=== PATIENT | male | born 1955 | race Caucasian/White ===

== ENCOUNTER → 2017-12-24 | Outpatient (CLI) | payer OTHER ==
[~2017-12-24] MED LIST: AMLO5 PO; ASCO1ER; ASCO500 PO; ASPI325 PO; ASPI325EC; ASPI325EC PO; BEE POLLEN; CALC.25 PO; CARV25; CENTRUM ADULTS1 EACH PO; CEPH500 PO; CHOL10002; CLON.2; CLON.2 PO; Cardura8 MG PO; DOXA4; DOXA4 PO; DULO60; DULO60 PO; EDARBI PO; FINA5; FINA5 PO; FURO20; FURO40 PO; GABA300; GABA300 PO; GLIP10 PO; GLIP2.5ER; GLIP2.5ER PO; HYDACE5; HYDACE5 PO; HYDCHL50 PO; HYDPAM50 PO; LISI10; LISI20; LISI5 PO; METF500; METF500 PO; METO50ER; MULVIT PO; MULVITMINF; OMEP20ER; OMEP20ER PO; OXYACE5T PO; PARI1; PARI1 PO; PIOG30 PO; PIOG45; PIOGLITAZONE; Prilosec Otc20 MG; RANI150; RANI150 PO; RXERYTOPTH OP; Ranitidine HCl300 M1 PO; SITA25T2 PO; SULTRIDS PO; TELM40; TOCO400 PO; TRADJENTA5 MG PO; Vitamin C500 M3 PO; ZESTRIL40 MG PO; [UNRECOGNIZED DRUG - OTHER] PO
[2017-12-24 13:39] LABS: Protein, Urine Quantitative 46.1 mg/dL (0.0-11.9)
== END | disposition home or self-care (01) ==
LOC: OLS 11:32
PROVIDERS: Internal Medicine Nephrology
DX: N18.4 Chronic kidney disease, stage 4 (severe) (principal); E87.70 Fluid overload, unspecified; R60.0 Localized edema
CPT/HCPCS: 81050; 82043; 84156

== ENCOUNTER 2019-06-14 05:54 | Day surgery (SDC) | payer OTHER ==
[~2019-06-14] VITALS: Ht 172.7 cm; Wt 148.0 kg
[~2019-06-14 05:54] MED LIST changes: -CHOL10002; -CLON.2; +CLON.3TP TOP; +METO50ER PO; +OMEPRAZOLE20 MG PO; -Prilosec Otc20 MG; +VITAMIN D31000 UNIT PO
[2019-06-14] MEDS ORDERED: GABA100 PO (06:28)
[2019-06-14] MEDS ORDERED: ATORVASTATIN PO (06:29)
[2019-06-14] MEDS ORDERED: CLON.2 PO (06:36)
--- NOTE | 2019-06-14 09:30 | NUR ---
IV DC'D, CATH INTACT. RIGHT UPPER CHEST PERMACATH SITE CLEAN AND DRY, NO BLEEDING OR SWELLING NOTED AROUND SITE. PT VERBALIZED UNDERSTANDING OF DC INSTRUCTIONS AND FOLLOW UP INFO. WILL GO IMMEDIATELY TO DR MESA'S OFFICE AFTER BEING DC'D FROM [facility].
== END 2019-06-14 09:45 | disposition home or self-care (01) ==
LOC: MHTC 05:54
DX: I13.2 Hypertensive heart and chronic kidney disease with heart failure and with stage 5 chronic kidney disease, or end stage renal disease (principal); E11.22 Type 2 diabetes mellitus with diabetic chronic kidney disease; N18.6 End stage renal disease; I50.9 Heart failure, unspecified; E11.40 Type 2 diabetes mellitus with diabetic neuropathy, unspecified; I25.10 Atherosclerotic heart disease of native coronary artery without angina pectoris; G47.33 Obstructive sleep apnea (adult) (pediatric); E66.01 Morbid (severe) obesity due to excess calories; Z99.89 Dependence on other enabling machines and devices; Z88.8 Allergy status to other drugs, medicaments and biological substances; Z79.899 Other long term (current) drug therapy; Z68.42 Body mass index [BMI] 45.0-49.9, adult
CPT/HCPCS: 36558; 76937; 82947; 99152; 99153; C1750; C1769; J1644; J2250; J3010; J7030; J7040

== ENCOUNTER 2019-07-15 18:01 | Emergency (ER) | payer OTHER ==
[~2019-07-15] VITALS: Ht 177.8 cm; Wt 163.3 kg
[~2019-07-15 18:01] MED LIST changes: +ATORVASTATIN PO; +GABA100 PO
[2019-07-15] MEDS ORDERED: ZOLOFT20 MG/ML PO (18:14)
[2019-07-15 18:55] LABS: BASOPHILS ABSOLUTE AUTO 0.05 K/mm3 (0.00-0.23); BASOPHILS PERCENT AUTO 1 % (0-2); EOSINOPHILS PERCENT AUTO 4 % (0-6); Hematocrit 32.5 % (37.0-53.0); Hemoglobin 10.5 g/dL (13.5-17.5); IMMATURE GRAN ABSOLUTE AUTO 0.06 K/mm3 (0.00-0.10); IMMATURE GRAN PERCENT AUTO 1 % (0-1); LYMPHOCYTES ABSOLUTE AUTO 1.93 K/mm3 (0.84-5.20); LYMPHOCYTES PERCENT AUTO 25 % (21-46); MONOCYTES PERCENT AUTO 10 % (4-13); Mean Corpuscular HGB 29.9 pg (26.0-34.0); Mean Corpuscular HGB Conc 32.3 g/dL (31.5-36.5); Mean Corpuscular Volume 93 fL (80-100); Mean Platelet Volume 9.3 fL (9.1-12.4); NEUTROPHILS ABSOLUTE AUTO 4.67 K/mm3 (1.96-9.15); NEUTROPHILS PERCENT AUTO 60 % (41-73); Platelet Count 182 K/mm3 (150-400); RDW Coefficient Variation 13.9 % (11.7-14.2); RDW Standard Deviation 46.6 fL (35.1-46.3); Red Blood Cell Count 3.51 M/mm3 (4.30-5.90); White Blood Cell Count 7.81 K/mm3 (4.00-11.30)
[2019-07-15 19:12] LABS: Albumin, Blood 3.4 g/dL (3.4-5.0); Albumin/Globulin Ratio 0.8 (0.8-1.8); Bilirubin, Total 0.5 mg/dL (0.1-1.0); Bun/Creatinine Ratio 8.9 (12.0-20.0); Calcium, Blood 7.9 mg/dL (8.5-10.1); Creatinine, Blood 7.3 mg/dL (0.60-1.20); Globulin, Blood 4.4 g/dL (2.2-4.0); Magnesium, Blood 2.1 mg/dL (1.6-2.4); Potassium, Blood 4.2 mmol/L (3.5-5.5); Total Protein, Blood 7.8 g/dL (6.4-8.2)
== END 2019-07-15 20:06 | disposition home or self-care (01) ==
LOC: ER 18:01
PROVIDERS: Internal Medicine
DX: R53.1 Weakness (principal); E11.22 Type 2 diabetes mellitus with diabetic chronic kidney disease; N18.6 End stage renal disease; Z99.2 Dependence on renal dialysis; I25.2 Old myocardial infarction; Z88.1 Allergy status to other antibiotic agents; Z88.6 Allergy status to analgesic agent; Z79.899 Other long term (current) drug therapy
CPT/HCPCS: 36415; 80053; 83735; 85025; 99285

== ENCOUNTER 2019-07-25 19:02 | Emergency (ER) | payer OTHER ==
[~2019-07-25] VITALS: Ht 172.7 cm; Wt 147.9 kg
[~2019-07-25 19:02] MED LIST changes: +ZOLOFT20 MG/ML PO
[2019-07-25 20:01] LABS: BASOPHILS ABSOLUTE AUTO 0.05 K/mm3 (0.00-0.23); BASOPHILS PERCENT AUTO 1 % (0-2); EOSINOPHILS PERCENT AUTO 4 % (0-6); Hematocrit 32.9 % (37.0-53.0); Hemoglobin 10.3 g/dL (13.5-17.5); IMMATURE GRAN ABSOLUTE AUTO 0.05 K/mm3 (0.00-0.10); IMMATURE GRAN PERCENT AUTO 1 % (0-1); LYMPHOCYTES ABSOLUTE AUTO 1.62 K/mm3 (0.84-5.20); LYMPHOCYTES PERCENT AUTO 20 % (21-46); MONOCYTES ABSOLUTE AUTO 0.69 K/mm3 (0.16-1.47); MONOCYTES PERCENT AUTO 9 % (4-13); Mean Corpuscular HGB 29.3 pg (26.0-34.0); Mean Corpuscular HGB Conc 31.3 g/dL (31.5-36.5); Mean Corpuscular Volume 94 fL (80-100); Mean Platelet Volume 9.2 fL (9.1-12.4); NEUTROPHILS PERCENT AUTO 67 % (41-73); Platelet Count 186 K/mm3 (150-400); RDW Coefficient Variation 13.8 % (11.7-14.2); RDW Standard Deviation 46.8 fL (35.1-46.3); Red Blood Cell Count 3.51 M/mm3 (4.30-5.90); White Blood Cell Count 8.11 K/mm3 (4.00-11.30)
[2019-07-25 20:23] LABS: Alanine Aminotransfer (ALT/SGP 27 U/L (12-78); Albumin, Blood 3.4 g/dL (3.4-5.0); Albumin/Globulin Ratio 0.8 (0.8-1.8); Alk Phos 100 U/L (50-136); Anion Gap 8 mmol/L (6-16); Aspartate Aminotrans (AST/SGOT 18 U/L (12-37); Bilirubin, Total 0.5 mg/dL (0.1-1.0); Blood Urea Nitrogen 66 mg/dL (8-24); Bun/Creatinine Ratio 8.3 (12.0-20.0); CO2, Blood 30 mmol/L (21-32); Calcium, Blood 7.5 mg/dL (8.5-10.1); Chloride, Blood 96 mmol/L (98-108); Creatinine, Blood 7.95 mg/dL (0.60-1.20); Globulin, Blood 4.3 g/dL (2.2-4.0); Glomerular Filtration Rate 7 (60-); Glucose, Blood 189 mg/dL (70-99); Potassium, Blood 4.5 mmol/L (3.5-5.5); Sodium, Blood 134 mmol/L (136-145); Total Protein, Blood 7.7 g/dL (6.4-8.2); Troponin I <0.015 ng/mL (0.000-0.040)
== END 2019-07-25 22:28 | disposition home or self-care (01) ==
LOC: ER 19:02
PROVIDERS: Physician Assistant
DX: E11.22 Type 2 diabetes mellitus with diabetic chronic kidney disease (principal); I12.0 Hypertensive chronic kidney disease with stage 5 chronic kidney disease or end stage renal disease; N18.6 End stage renal disease; D63.1 Anemia in chronic kidney disease; Z99.2 Dependence on renal dialysis; R51 Headache; F32.9 Major depressive disorder, single episode, unspecified; K21.9 Gastro-esophageal reflux disease without esophagitis; Z88.8 Allergy status to other drugs, medicaments and biological substances; Z88.6 Allergy status to analgesic agent; Z79.899 Other long term (current) drug therapy
CPT/HCPCS: 36415; 80053; 82272; 84484; 85025; 93005; 93010; 99283-25

== ENCOUNTER 2019-08-03 16:54 | Emergency (ER) | payer OTHER ==
[~2019-08-03] VITALS: Ht 175.3 cm; Wt 148.3 kg
[2019-08-03] MEDS ORDERED: SERT25 PO (17:15)
[2019-08-03] MEDS ORDERED: MIDO5 PO (17:15)
[2019-08-03 18:03] LABS: BASOPHILS ABSOLUTE AUTO 0.03 K/mm3 (0.00-0.23); BASOPHILS PERCENT AUTO 0 % (0-2); EOSINOPHILS ABSOLUTE AUTO 0.09 K/mm3 (0.00-0.68); EOSINOPHILS PERCENT AUTO 1 % (0-6); Hemoglobin 10.2 g/dL (13.5-17.5); IMMATURE GRAN ABSOLUTE AUTO 0.03 K/mm3 (0.00-0.10); IMMATURE GRAN PERCENT AUTO 0 % (0-1); LYMPHOCYTES ABSOLUTE AUTO 1.11 K/mm3 (0.84-5.20); LYMPHOCYTES PERCENT AUTO 15 % (21-46); MONOCYTES PERCENT AUTO 11 % (4-13); Mean Corpuscular HGB 29.9 pg (26.0-34.0); Mean Corpuscular HGB Conc 31.9 g/dL (31.5-36.5); Mean Corpuscular Volume 94 fL (80-100); Mean Platelet Volume 9.1 fL (9.1-12.4); NEUTROPHILS ABSOLUTE AUTO 5.49 K/mm3 (1.96-9.15); NEUTROPHILS PERCENT AUTO 73 % (41-73); Platelet Count 189 K/mm3 (150-400); RDW Coefficient Variation 13.7 % (11.7-14.2); RDW Standard Deviation 46.4 fL (35.1-46.3); Red Blood Cell Count 3.41 M/mm3 (4.30-5.90); White Blood Cell Count 7.55 K/mm3 (4.00-11.30)
[2019-08-03 18:26] LABS: Albumin, Blood 3.6 g/dL (3.4-5.0); Albumin/Globulin Ratio 0.9 (0.8-1.8); Bilirubin, Total 0.6 mg/dL (0.1-1.0); Bun/Creatinine Ratio 7.6 (12.0-20.0); Calcium, Blood 8.5 mg/dL (8.5-10.1); Creatinine, Blood 5.81 mg/dL (0.60-1.20); Globulin, Blood 4.2 g/dL (2.2-4.0); Total Protein, Blood 7.8 g/dL (6.4-8.2)
== END 2019-08-03 19:29 | disposition home or self-care (01) ==
LOC: ER 16:54
PROVIDERS: Emergency Medicine
DX: I95.9 Hypotension, unspecified (principal); E11.22 Type 2 diabetes mellitus with diabetic chronic kidney disease; N18.6 End stage renal disease; D63.1 Anemia in chronic kidney disease; I25.2 Old myocardial infarction; E87.1 Hypo-osmolality and hyponatremia; E87.8 Other disorders of electrolyte and fluid balance, not elsewhere classified; Z99.2 Dependence on renal dialysis; Z88.8 Allergy status to other drugs, medicaments and biological substances; Z79.899 Other long term (current) drug therapy
CPT/HCPCS: 36415; 80053; 85025; 93005; 93010; 99285-25

== ENCOUNTER 2019-08-04 13:24 | Emergency (ER) | payer OTHER ==
[~2019-08-04] VITALS: Ht 175.3 cm; Wt 148.3 kg
[~2019-08-04 13:24] MED LIST changes: +MIDO5 PO; +SERT25 PO
[2019-08-04 14:56] LABS: BASOPHILS ABSOLUTE AUTO 0.03 K/mm3 (0.00-0.23); BASOPHILS PERCENT AUTO 0 % (0-2); EOSINOPHILS ABSOLUTE AUTO 0.25 K/mm3 (0.00-0.68); EOSINOPHILS PERCENT AUTO 3 % (0-6); Hematocrit 30.2 % (37.0-53.0); Hemoglobin 9.7 g/dL (13.5-17.5); IMMATURE GRAN ABSOLUTE AUTO 0.02 K/mm3 (0.00-0.10); IMMATURE GRAN PERCENT AUTO 0 % (0-1); LYMPHOCYTES ABSOLUTE AUTO 1.68 K/mm3 (0.84-5.20); LYMPHOCYTES PERCENT AUTO 22 % (21-46); MONOCYTES ABSOLUTE AUTO 0.68 K/mm3 (0.16-1.47); MONOCYTES PERCENT AUTO 9 % (4-13); Mean Corpuscular HGB 30.2 pg (26.0-34.0); Mean Corpuscular HGB Conc 32.1 g/dL (31.5-36.5); Mean Corpuscular Volume 94 fL (80-100); NEUTROPHILS ABSOLUTE AUTO 4.83 K/mm3 (1.96-9.15); NEUTROPHILS PERCENT AUTO 65 % (41-73); Platelet Count 193 K/mm3 (150-400); RDW Coefficient Variation 13.9 % (11.7-14.2); RDW Standard Deviation 47.3 fL (35.1-46.3); Red Blood Cell Count 3.21 M/mm3 (4.30-5.90); White Blood Cell Count 7.49 K/mm3 (4.00-11.30)
[2019-08-04 15:11] LABS: Albumin, Blood 3.4 g/dL (3.4-5.0); Albumin/Globulin Ratio 0.8 (0.8-1.8); Bilirubin, Total 0.5 mg/dL (0.1-1.0); Bun/Creatinine Ratio 8.2 (12.0-20.0); Calcium, Blood 8.2 mg/dL (8.5-10.1); Creatinine, Blood 5.38 mg/dL (0.60-1.20); Globulin, Blood 4.3 g/dL (2.2-4.0); Potassium, Blood 3.7 mmol/L (3.5-5.5); Total Protein, Blood 7.7 g/dL (6.4-8.2)
== END 2019-08-04 17:57 | disposition home or self-care (01) ==
LOC: ER 13:24
PROVIDERS: Physician Assistant
DX: R51 Headache (principal); R03.0 Elevated blood-pressure reading, without diagnosis of hypertension; I25.2 Old myocardial infarction; E11.9 Type 2 diabetes mellitus without complications; Z88.8 Allergy status to other drugs, medicaments and biological substances; Z88.1 Allergy status to other antibiotic agents; Z79.899 Other long term (current) drug therapy
CPT/HCPCS: 70450; 80053; 85025; 93005; 93010; 99285-25

== ENCOUNTER 2019-08-18 00:33 | Emergency (ER) | payer OTHER ==
[~2019-08-18] VITALS: Ht 175.3 cm; Wt 147.4 kg
[2019-08-18] MEDS ORDERED: Norco 5-325 Ta1 EACH PO (02:01)
[2019-08-18] MEDS ORDERED: LIDO700A20 TOP (02:01)
== END 2019-08-18 02:39 | disposition home or self-care (01) ==
LOC: ER 00:33
DX: M54.32 Sciatica, left side (principal); E11.9 Type 2 diabetes mellitus without complications; I25.2 Old myocardial infarction; N28.9 Disorder of kidney and ureter, unspecified; Z88.8 Allergy status to other drugs, medicaments and biological substances; Z79.899 Other long term (current) drug therapy
CPT/HCPCS: A9270; J1100

== ENCOUNTER 2019-08-28 14:34 | Emergency (ER) | payer OTHER ==
[~2019-08-28] VITALS: Ht 175.3 cm; Wt 145.2 kg
[~2019-08-28 14:34] MED LIST changes: +LIDO700A20 TOP; +Norco 5-325 Ta1 EACH PO
[2019-08-30] MEDS ORDERED: VITAMIN D31000 UNI2 PO (15:25)
[2019-08-30] MEDS ORDERED: CALC.25 PO (15:25)
[2019-08-30] MEDS ORDERED: Rena-Vite Tabl0.8 MG PO (15:26)
== END 2019-08-28 18:15 | disposition left against medical advice (07) ==
LOC: ER 14:34
DX: T82.898A Other specified complication of vascular prosthetic devices, implants and grafts, initial encounter (principal)
CPT/HCPCS: 99282; J2997

== ENCOUNTER 2019-09-06 12:08 | Emergency (ER) | payer OTHER ==
[~2019-09-06] VITALS: Ht 172.7 cm; Wt 137.0 kg
[~2019-09-06 12:08] MED LIST changes: +Rena-Vite Tabl0.8 MG PO; +VITAMIN D31000 UNI2 PO
[2019-09-06 12:47] LABS: BASOPHILS ABSOLUTE AUTO 0.04 K/mm3 (0.00-0.23); BASOPHILS PERCENT AUTO 1 % (0-2); EOSINOPHILS ABSOLUTE AUTO 0.24 K/mm3 (0.00-0.68); EOSINOPHILS PERCENT AUTO 3 % (0-6); Hematocrit 34.6 % (37.0-53.0); Hemoglobin 10.8 g/dL (13.5-17.5); IMMATURE GRAN ABSOLUTE AUTO 0.02 K/mm3 (0.00-0.10); IMMATURE GRAN PERCENT AUTO 0 % (0-1); LYMPHOCYTES ABSOLUTE AUTO 1.25 K/mm3 (0.84-5.20); LYMPHOCYTES PERCENT AUTO 17 % (21-46); MONOCYTES ABSOLUTE AUTO 0.59 K/mm3 (0.16-1.47); MONOCYTES PERCENT AUTO 8 % (4-13); Mean Corpuscular HGB 28.6 pg (26.0-34.0); Mean Corpuscular HGB Conc 31.2 g/dL (31.5-36.5); Mean Corpuscular Volume 92 fL (80-100); Mean Platelet Volume 9.1 fL (9.1-12.4); NEUTROPHILS ABSOLUTE AUTO 5.15 K/mm3 (1.96-9.15); NEUTROPHILS PERCENT AUTO 71 % (41-73); Platelet Count 199 K/mm3 (150-400); Red Blood Cell Count 3.78 M/mm3 (4.30-5.90); White Blood Cell Count 7.29 K/mm3 (4.00-11.30)
[2019-09-06 13:05] LABS: Alanine Aminotransfer (ALT/SGP 21 U/L (12-78); Albumin, Blood 3.3 g/dL (3.4-5.0); Albumin/Globulin Ratio 0.6 (0.8-1.8); Alk Phos 106 U/L (50-136); Anion Gap 9 mmol/L (6-16); Aspartate Aminotrans (AST/SGOT 19 U/L (12-37); Bilirubin, Total 0.4 mg/dL (0.1-1.0); Blood Urea Nitrogen 45 mg/dL (8-24); Bun/Creatinine Ratio 9.1 (12.0-20.0); CO2, Blood 27 mmol/L (21-32); Calcium, Blood 8.4 mg/dL (8.5-10.1); Chloride, Blood 99 mmol/L (98-108); Creatinine, Blood 4.96 mg/dL (0.60-1.20); Globulin, Blood 5.1 g/dL (2.2-4.0); Glomerular Filtration Rate 13 (60-); Glucose, Blood 329 mg/dL (70-99); Sodium, Blood 135 mmol/L (136-145); Total Protein, Blood 8.4 g/dL (6.4-8.2); Troponin I <0.015 ng/mL (0.000-0.040)
[2019-09-06] MEDS ORDERED: ATOR40TA PO (13:28)
== END 2019-09-06 16:17 | disposition home or self-care (01) ==
LOC: ER 12:08
PROVIDERS: Emergency Medicine
DX: R07.2 Precordial pain (principal); I25.2 Old myocardial infarction; E11.22 Type 2 diabetes mellitus with diabetic chronic kidney disease; N18.6 End stage renal disease; Z99.2 Dependence on renal dialysis; Z88.1 Allergy status to other antibiotic agents; Z79.899 Other long term (current) drug therapy
CPT/HCPCS: 36415; 36593; 37195; 71046; 80053; 83880; 84484; 85025; 93005; 93010; 99285-25; J2997

== ENCOUNTER 2019-09-07 20:26 | Emergency (ER) | payer OTHER ==
[~2019-09-07] VITALS: Ht 172.7 cm; Wt 137.0 kg
[~2019-09-07 20:26] MED LIST changes: +ATOR40TA PO
[2019-09-07 21:09] LABS: BASOPHILS ABSOLUTE AUTO 0.02 K/mm3 (0.00-0.23); BASOPHILS PERCENT AUTO 0 % (0-2); EOSINOPHILS PERCENT AUTO 2 % (0-6); Hematocrit 33.3 % (37.0-53.0); Hemoglobin 10.6 g/dL (13.5-17.5); IMMATURE GRAN ABSOLUTE AUTO 0.03 K/mm3 (0.00-0.10); IMMATURE GRAN PERCENT AUTO 1 % (0-1); LYMPHOCYTES ABSOLUTE AUTO 0.68 K/mm3 (0.84-5.20); LYMPHOCYTES PERCENT AUTO 10 % (21-46); MONOCYTES PERCENT AUTO 8 % (4-13); Mean Corpuscular HGB 28.9 pg (26.0-34.0); Mean Corpuscular HGB Conc 31.8 g/dL (31.5-36.5); Mean Corpuscular Volume 91 fL (80-100); NEUTROPHILS ABSOLUTE AUTO 5.28 K/mm3 (1.96-9.15); NEUTROPHILS PERCENT AUTO 80 % (41-73); Platelet Count 189 K/mm3 (150-400); RDW Standard Deviation 46.6 fL (35.1-46.3); Red Blood Cell Count 3.67 M/mm3 (4.30-5.90); White Blood Cell Count 6.61 K/mm3 (4.00-11.30)
[2019-09-07 21:30] LABS: Alanine Aminotransfer (ALT/SGP 21 U/L (12-78); Albumin, Blood 3.1 g/dL (3.4-5.0); Albumin/Globulin Ratio 0.7 (0.8-1.8); Alk Phos 104 U/L (50-136); Anion Gap 9 mmol/L (6-16); Aspartate Aminotrans (AST/SGOT 12 U/L (12-37); Bilirubin, Total 0.5 mg/dL (0.1-1.0); Blood Urea Nitrogen 58 mg/dL (8-24); Bun/Creatinine Ratio 9.5 (12.0-20.0); CO2, Blood 27 mmol/L (21-32); Calcium, Blood 8.4 mg/dL (8.5-10.1); Chloride, Blood 97 mmol/L (98-108); Creatinine, Blood 6.09 mg/dL (0.60-1.20); Globulin, Blood 4.7 g/dL (2.2-4.0); Glomerular Filtration Rate 10 (60-); Glucose, Blood 210 mg/dL (70-99); Potassium, Blood 4.4 mmol/L (3.5-5.5); Sodium, Blood 133 mmol/L (136-145); Total Protein, Blood 7.8 g/dL (6.4-8.2); Troponin I <0.015 ng/mL (0.000-0.040)
== END 2019-09-07 23:00 | disposition home or self-care (01) ==
LOC: ER 20:26
PROVIDERS: Emergency Medicine
DX: I95.9 Hypotension, unspecified (principal); E11.22 Type 2 diabetes mellitus with diabetic chronic kidney disease; N18.6 End stage renal disease; I25.2 Old myocardial infarction; Z88.1 Allergy status to other antibiotic agents; Z88.8 Allergy status to other drugs, medicaments and biological substances; Z79.899 Other long term (current) drug therapy; Z99.2 Dependence on renal dialysis
CPT/HCPCS: 36415; 80053; 83690; 84484; 85025; 93005; 93010; 96374; 99284-25; J2405

== ENCOUNTER 2019-09-14 12:56 | Day surgery (SDC) | payer OTHER ==
[~2019-09-14] VITALS: Ht 175.3 cm; Wt 146.0 kg
== END 2019-09-14 23:18 | disposition home or self-care (01) ==
LOC: MHTC 12:56
DX: I13.2 Hypertensive heart and chronic kidney disease with heart failure and with stage 5 chronic kidney disease, or end stage renal disease (principal); E11.22 Type 2 diabetes mellitus with diabetic chronic kidney disease; N18.6 End stage renal disease; I50.9 Heart failure, unspecified; E11.21 Type 2 diabetes mellitus with diabetic nephropathy; E11.40 Type 2 diabetes mellitus with diabetic neuropathy, unspecified; E11.319 Type 2 diabetes mellitus with unspecified diabetic retinopathy without macular edema; G43.909 Migraine, unspecified, not intractable, without status migrainosus; G47.33 Obstructive sleep apnea (adult) (pediatric); I25.10 Atherosclerotic heart disease of native coronary artery without angina pectoris; M19.90 Unspecified osteoarthritis, unspecified site; E11.36 Type 2 diabetes mellitus with diabetic cataract; H26.9 Unspecified cataract; G89.29 Other chronic pain; M54.9 Dorsalgia, unspecified; E66.9 Obesity, unspecified; Z68.42 Body mass index [BMI] 45.0-49.9, adult; Z95.5 Presence of coronary angioplasty implant and graft; Z99.89 Dependence on other enabling machines and devices; Z88.2 Allergy status to sulfonamides; Z88.8 Allergy status to other drugs, medicaments and biological substances; Z79.899 Other long term (current) drug therapy
CPT/HCPCS: 36415; 36581; 36596; 36597; 80048; 85025; 85610; C1725; C1769; J0360; J1644; J7040; Q9967

== ENCOUNTER 2019-10-13 07:51 | Emergency (ER) | payer OTHER ==
[~2019-10-13] VITALS: Ht 175.3 cm; Wt 98.4 kg
== END 2019-10-13 08:57 | disposition home or self-care (01) ==
LOC: ER 07:51
DX: T82.49XA Other complication of vascular dialysis catheter, initial encounter (principal); I25.2 Old myocardial infarction; E11.9 Type 2 diabetes mellitus without complications; Z88.1 Allergy status to other antibiotic agents; Z88.8 Allergy status to other drugs, medicaments and biological substances; Z79.899 Other long term (current) drug therapy; Z99.2 Dependence on renal dialysis
CPT/HCPCS: 36415; 96374; 99283-25; J2997

== ENCOUNTER 2019-11-02 12:00 | Emergency (ER) | payer OTHER ==
[~2019-11-02] VITALS: Ht 172.7 cm; Wt 143.8 kg
[2019-11-02 12:36] LABS: BASOPHILS ABSOLUTE AUTO 0.03 K/mm3 (0.00-0.23); BASOPHILS PERCENT AUTO 1 % (0-2); EOSINOPHILS ABSOLUTE AUTO 0.03 K/mm3 (0.00-0.68); EOSINOPHILS PERCENT AUTO 1 % (0-6); Hematocrit 39.2 % (37.0-53.0); IMMATURE GRAN ABSOLUTE AUTO 0.01 K/mm3 (0.00-0.10); IMMATURE GRAN PERCENT AUTO 0 % (0-1); LYMPHOCYTES ABSOLUTE AUTO 0.64 K/mm3 (0.84-5.20); LYMPHOCYTES PERCENT AUTO 18 % (21-46); MONOCYTES PERCENT AUTO 14 % (4-13); Mean Corpuscular HGB 27.4 pg (26.0-34.0); Mean Corpuscular HGB Conc 30.6 g/dL (31.5-36.5); Mean Corpuscular Volume 90 fL (80-100); Mean Platelet Volume 9.1 fL (9.1-12.4); NEUTROPHILS ABSOLUTE AUTO 2.42 K/mm3 (1.96-9.15); NEUTROPHILS PERCENT AUTO 67 % (41-73); Platelet Count 150 K/mm3 (150-400); RDW Coefficient Variation 15.2 % (11.7-14.2); RDW Standard Deviation 50.4 fL (35.1-46.3); Red Blood Cell Count 4.38 M/mm3 (4.30-5.90); White Blood Cell Count 3.63 K/mm3 (4.00-11.30)
[2019-11-02 12:59] LABS: Albumin, Blood 3.5 g/dL (3.4-5.0); Albumin/Globulin Ratio 0.8 (0.8-1.8); Bilirubin, Total 0.6 mg/dL (0.1-1.0); Calcium, Blood 8.5 mg/dL (8.5-10.1); Creatinine, Blood 5.89 mg/dL (0.60-1.20); Globulin, Blood 4.6 g/dL (2.2-4.0); Potassium, Blood 4.1 mmol/L (3.5-5.5); Total Protein, Blood 8.1 g/dL (6.4-8.2)
== END 2019-11-02 15:51 | disposition home or self-care (01) ==
LOC: ER 12:00
PROVIDERS: Emergency Medicine
DX: I12.9 Hypertensive chronic kidney disease with stage 1 through stage 4 chronic kidney disease, or unspecified chronic kidney disease (principal); E11.22 Type 2 diabetes mellitus with diabetic chronic kidney disease; N18.3 Chronic kidney disease, stage 3 (moderate); I25.2 Old myocardial infarction; Z99.2 Dependence on renal dialysis; Z88.8 Allergy status to other drugs, medicaments and biological substances; Z79.899 Other long term (current) drug therapy
CPT/HCPCS: 36415; 80053; 85025; 93005; 93010; 96360; 96361; 99284-25; J7030

== ENCOUNTER 2019-11-03 09:58 | Emergency (ER) | payer OTHER ==
[~2019-11-03] VITALS: Ht 172.7 cm; Wt 143.8 kg
[2019-11-03 11:10] LABS: BASOPHILS ABSOLUTE AUTO 0.03 K/mm3 (0.00-0.23); BASOPHILS PERCENT AUTO 1 % (0-2); EOSINOPHILS ABSOLUTE AUTO 0.19 K/mm3 (0.00-0.68); EOSINOPHILS PERCENT AUTO 3 % (0-6); Hematocrit 36.2 % (37.0-53.0); IMMATURE GRAN ABSOLUTE AUTO 0.01 K/mm3 (0.00-0.10); IMMATURE GRAN PERCENT AUTO 0 % (0-1); LYMPHOCYTES ABSOLUTE AUTO 1.03 K/mm3 (0.84-5.20); LYMPHOCYTES PERCENT AUTO 18 % (21-46); MONOCYTES ABSOLUTE AUTO 0.71 K/mm3 (0.16-1.47); MONOCYTES PERCENT AUTO 12 % (4-13); Mean Corpuscular HGB 27.9 pg (26.0-34.0); Mean Corpuscular HGB Conc 30.4 g/dL (31.5-36.5); Mean Corpuscular Volume 92 fL (80-100); Mean Platelet Volume 9.6 fL (9.1-12.4); NEUTROPHILS ABSOLUTE AUTO 3.92 K/mm3 (1.96-9.15); NEUTROPHILS PERCENT AUTO 67 % (41-73); Platelet Count 144 K/mm3 (150-400); RDW Coefficient Variation 15.5 % (11.7-14.2); RDW Standard Deviation 52.8 fL (35.1-46.3); Red Blood Cell Count 3.94 M/mm3 (4.30-5.90); White Blood Cell Count 5.89 K/mm3 (4.00-11.30)
[2019-11-03 11:29] LABS: Alanine Aminotransfer (ALT/SGP 37 U/L (12-78); Albumin, Blood 2.9 g/dL (3.4-5.0); Albumin/Globulin Ratio 0.6 (0.8-1.8); Alk Phos 90 U/L (50-136); Anion Gap 11 mmol/L (6-16); Aspartate Aminotrans (AST/SGOT 35 U/L (12-37); Bilirubin, Total 0.5 mg/dL (0.1-1.0); Blood Urea Nitrogen 54 mg/dL (8-24); Bun/Creatinine Ratio 7.4 (12.0-20.0); CO2, Blood 24 mmol/L (21-32); Calcium, Blood 7.8 mg/dL (8.5-10.1); Chloride, Blood 95 mmol/L (98-108); Creatinine, Blood 7.26 mg/dL (0.60-1.20); Globulin, Blood 4.5 g/dL (2.2-4.0); Glomerular Filtration Rate 8 (60-); Glucose, Blood 217 mg/dL (70-99); Potassium, Blood 4.9 mmol/L (3.5-5.5); Sodium, Blood 130 mmol/L (136-145); Total Protein, Blood 7.4 g/dL (6.4-8.2); Troponin I <0.015 ng/mL (0.000-0.040)
== END 2019-11-03 15:36 | disposition home or self-care (01) ==
LOC: ER 09:58
PROVIDERS: Emergency Medicine
DX: E86.0 Dehydration (principal); E11.22 Type 2 diabetes mellitus with diabetic chronic kidney disease; N18.3 Chronic kidney disease, stage 3 (moderate); I25.2 Old myocardial infarction; Z99.2 Dependence on renal dialysis; Z88.8 Allergy status to other drugs, medicaments and biological substances; Z79.899 Other long term (current) drug therapy
CPT/HCPCS: 36415; 80053; 84484; 85025; 93005; 93010; 96360; 99284-25; J7030

== ENCOUNTER → 2020-01-22 | Outpatient (CLI) | payer OTHER ==
[2020-01-22 17:35] LABS: Alanine Aminotransfer (ALT/SGP 39 U/L (12-78); Albumin, Blood 3.3 g/dL (3.4-5.0); Albumin/Globulin Ratio 0.7 (0.8-1.8); Alk Phos 107 U/L (40-126); Anion Gap 11 mmol/L (6-16); Bilirubin, Total 0.8 mg/dL (0.1-1.0); Blood Urea Nitrogen 19 mg/dL (8-24); Bun/Creatinine Ratio 6.5 (12.0-20.0); CO2, Blood 32 mmol/L (21-32); Calcium, Blood 8.1 mg/dL (8.5-10.1); Chloride, Blood 94 mmol/L (98-108); Creatinine, Blood 2.93 mg/dL (0.60-1.20); Globulin, Blood 4.5 g/dL (2.2-4.0); Glomerular Filtration Rate 22 (60-); Glucose, Blood 371 mg/dL (70-99); Magnesium, Blood 1.8 mg/dL (1.6-2.4); Potassium, Blood 3.6 mmol/L (3.5-5.5); Sodium, Blood 137 mmol/L (136-145); Thyroid Stimulating Hormone 0.938 uIU/mL (0.360-4.800); Total Protein, Blood 7.8 g/dL (6.4-8.2)
[2020-01-22 17:36] LABS: Aspartate Aminotrans (AST/SGOT 30 U/L (12-37); Troponin I <0.017 ng/mL (0.000-0.040)
== END | disposition home or self-care (01) ==
LOC: LAB EV 17:06 → LAB SHORT 17:06
PROVIDERS: Physician Assistant Medical
DX: R00.2 Palpitations (principal)
CPT/HCPCS: 80053; 83735; 84443; 84484

== ENCOUNTER 2021-02-14 10:58 | Emergency (ER) | payer OTHER ==
[~2021-02-14] VITALS: Ht 175.3 cm; Wt 113.4 kg
[~2021-02-14 10:58] MED LIST changes: +Calcium Acetat667 MG PO; +MUPIROCIN15 GM TOP
[2021-02-14 11:22] LABS: BASOPHILS ABSOLUTE AUTO 0.04 K/mm3 (0.00-0.23); BASOPHILS PERCENT AUTO 1 % (0-2); EOSINOPHILS ABSOLUTE AUTO 0.17 K/mm3 (0.00-0.68); EOSINOPHILS PERCENT AUTO 3 % (0-6); Hematocrit 43.2 % (37.0-53.0); Hemoglobin 14.1 g/dL (13.5-17.5); IMMATURE GRAN ABSOLUTE AUTO 0.02 K/mm3 (0.00-0.10); IMMATURE GRAN PERCENT AUTO 0 % (0-1); LYMPHOCYTES ABSOLUTE AUTO 1.58 K/mm3 (0.84-5.20); LYMPHOCYTES PERCENT AUTO 23 % (21-46); MONOCYTES ABSOLUTE AUTO 0.58 K/mm3 (0.16-1.47); MONOCYTES PERCENT AUTO 9 % (4-13); Mean Corpuscular HGB 28.7 pg (26.0-34.0); Mean Corpuscular HGB Conc 32.6 g/dL (31.5-36.5); Mean Corpuscular Volume 88 fL (80-100); Mean Platelet Volume 8.8 fL (9.1-12.4); NEUTROPHILS ABSOLUTE AUTO 4.37 K/mm3 (1.96-9.15); NEUTROPHILS PERCENT AUTO 65 % (41-73); Platelet Count 201 K/mm3 (150-400); RDW Coefficient Variation 14.6 % (11.7-14.2); RDW Standard Deviation 47.4 fL (35.1-46.3); Red Blood Cell Count 4.91 M/mm3 (4.30-5.90); White Blood Cell Count 6.76 K/mm3 (4.00-11.30)
[2021-02-14] MEDS ORDERED: MIDODRINE HCL10 M1 PO (11:26)
[2021-02-14] MEDS ORDERED: TEMA7.5 (11:27)
[2021-02-14] MEDS ORDERED: TRULICITY3 MG/0.5 M SQ (11:28)
[2021-02-14] MEDS ORDERED: PLAVIX75 MG PO (11:28)
[2021-02-14] MEDS ORDERED: BASAGLAR K100 UNIT/1 (11:28)
[2021-02-14] MEDS ORDERED: METOPROLOL SUCC25 MG PO (11:29)
[2021-02-14] MEDS ORDERED: GLIP5 PO (11:29)
[2021-02-14] MEDS ORDERED: TUMS500 MG (11:29)
[2021-02-14 11:39] LABS: Alanine Aminotransfer (ALT/SGP 35 U/L (12-78); Albumin, Blood 3.5 g/dL (3.4-5.0); Albumin/Globulin Ratio 0.8 (0.8-1.8); Alk Phos 122 U/L (50-136); Anion Gap 10 mmol/L (6-16); Aspartate Aminotrans (AST/SGOT 21 U/L (12-37); Bilirubin, Total 0.5 mg/dL (0.1-1.0); Blood Urea Nitrogen 49 mg/dL (8-24); Bun/Creatinine Ratio 7.3 (12.0-20.0); CO2, Blood 29 mmol/L (21-32); Chloride, Blood 96 mmol/L (98-108); Creatinine, Blood 6.68 mg/dL (0.60-1.20); Globulin, Blood 4.6 g/dL (2.2-4.0); Glomerular Filtration Rate 9 (60-); Glucose, Blood 289 mg/dL (70-99); Potassium, Blood 4.4 mmol/L (3.5-5.5); Sodium, Blood 135 mmol/L (136-145); Total Protein, Blood 8.1 g/dL (6.4-8.2); Troponin I <0.015 ng/mL (0.000-0.040)
== END 2021-02-14 16:21 | disposition home or self-care (01) ==
LOC: ER 10:58
PROVIDERS: Emergency Medicine
DX: R07.9 Chest pain, unspecified (principal); Z88.8 Allergy status to other drugs, medicaments and biological substances; Z88.1 Allergy status to other antibiotic agents; Z79.899 Other long term (current) drug therapy
CPT/HCPCS: 36415; 71046; 80053; 83690; 83880; 84484; 85025; 93005; 93010; 99285-25; A9270

== ENCOUNTER 2021-02-28 15:17 | Emergency (ER) | payer OTHER ==
[~2021-02-28] VITALS: Ht 175.3 cm; Wt 117.9 kg
[~2021-02-28 15:17] MED LIST changes: +BASAGLAR K100 UNIT/1 SC; +GLIP5 PO; +METOPROLOL SUCC25 MG PO; +MIDODRINE HCL10 M1 PO; +PLAVIX75 MG PO; +SERT100 PO; -SERT25 PO; +TEMA7.5; +TRULICITY3 MG/0.5 M SQ; +TUMS500 MG PO
[2021-02-28 15:49] LABS: BASOPHILS ABSOLUTE AUTO 0.05 K/mm3 (0.00-0.23); BASOPHILS PERCENT AUTO 1 % (0-2); EOSINOPHILS ABSOLUTE AUTO 0.16 K/mm3 (0.00-0.68); EOSINOPHILS PERCENT AUTO 2 % (0-6); Hematocrit 46.3 % (37.0-53.0); Hemoglobin 15.2 g/dL (13.5-17.5); IMMATURE GRAN ABSOLUTE AUTO 0.03 K/mm3 (0.00-0.10); IMMATURE GRAN PERCENT AUTO 1 % (0-1); LYMPHOCYTES ABSOLUTE AUTO 2.18 K/mm3 (0.84-5.20); LYMPHOCYTES PERCENT AUTO 33 % (21-46); MONOCYTES ABSOLUTE AUTO 0.56 K/mm3 (0.16-1.47); MONOCYTES PERCENT AUTO 9 % (4-13); Mean Corpuscular HGB 28.6 pg (26.0-34.0); Mean Corpuscular HGB Conc 32.8 g/dL (31.5-36.5); Mean Corpuscular Volume 87 fL (80-100); Mean Platelet Volume 8.6 fL (9.1-12.4); NEUTROPHILS ABSOLUTE AUTO 3.61 K/mm3 (1.96-9.15); NEUTROPHILS PERCENT AUTO 55 % (41-73); Platelet Count 260 K/mm3 (150-400); RDW Coefficient Variation 14.6 % (11.7-14.2); RDW Standard Deviation 46.3 fL (35.1-46.3); Red Blood Cell Count 5.32 M/mm3 (4.30-5.90); White Blood Cell Count 6.59 K/mm3 (4.00-11.30)
[2021-02-28 16:32] LABS: Albumin, Blood 3.8 g/dL (3.4-5.0); Albumin/Globulin Ratio 0.7 (0.8-1.8); Bilirubin, Total 0.7 mg/dL (0.1-1.0); Bun/Creatinine Ratio 5.9 (12.0-20.0); Calcium, Blood 9.2 mg/dL (8.5-10.1); Creatinine, Blood 4.22 mg/dL (0.60-1.20); Globulin, Blood 5.1 g/dL (2.2-4.0); Potassium, Blood 4.2 mmol/L (3.5-5.5); Total Protein, Blood 8.9 g/dL (6.4-8.2)
[2021-02-28] MEDS ORDERED: FINASTERIDE1 MG PO (18:21)
[2021-03-06] MEDS ORDERED: SIME80CH PO (09:30)
[2021-03-06] MEDS ORDERED: VITAMIN D310 MC4 PO (09:34)
[2021-03-06] MEDS ORDERED: Milk Thistle175 M1 PO (09:34)
== END 2021-02-28 19:10 | disposition home or self-care (01) ==
LOC: ER 15:17
PROVIDERS: Physician Assistant
DX: K80.70 Calculus of gallbladder and bile duct without cholecystitis without obstruction (principal); K21.9 Gastro-esophageal reflux disease without esophagitis; E11.40 Type 2 diabetes mellitus with diabetic neuropathy, unspecified; I10 Essential (primary) hypertension; E78.5 Hyperlipidemia, unspecified; Z88.1 Allergy status to other antibiotic agents; Z88.8 Allergy status to other drugs, medicaments and biological substances; Z79.4 Long term (current) use of insulin; Z79.899 Other long term (current) drug therapy
CPT/HCPCS: 36415; 76705; 80053; 83690; 85025; 93005; 93010; 99284-25

== ENCOUNTER 2021-03-05 08:31 | Emergency (ER) | payer OTHER ==
[~2021-03-05] VITALS: Ht 175.3 cm; Wt 117.9 kg
[~2021-03-05 08:31] MED LIST changes: +FINASTERIDE1 MG PO
[2021-03-05 09:25] LABS: BASOPHILS ABSOLUTE AUTO 0.05 K/mm3 (0.00-0.23); BASOPHILS PERCENT AUTO 1 % (0-2); EOSINOPHILS ABSOLUTE AUTO 0.17 K/mm3 (0.00-0.68); EOSINOPHILS PERCENT AUTO 3 % (0-6); Hematocrit 45.8 % (37.0-53.0); Hemoglobin 14.8 g/dL (13.5-17.5); IMMATURE GRAN ABSOLUTE AUTO 0.03 K/mm3 (0.00-0.10); IMMATURE GRAN PERCENT AUTO 1 % (0-1); LYMPHOCYTES ABSOLUTE AUTO 1.82 K/mm3 (0.84-5.20); LYMPHOCYTES PERCENT AUTO 30 % (21-46); MONOCYTES ABSOLUTE AUTO 0.58 K/mm3 (0.16-1.47); MONOCYTES PERCENT AUTO 9 % (4-13); Mean Corpuscular HGB 28.9 pg (26.0-34.0); Mean Corpuscular HGB Conc 32.3 g/dL (31.5-36.5); Mean Corpuscular Volume 90 fL (80-100); Mean Platelet Volume 8.6 fL (9.1-12.4); NEUTROPHILS PERCENT AUTO 57 % (41-73); Platelet Count 196 K/mm3 (150-400); RDW Coefficient Variation 14.9 % (11.7-14.2); RDW Standard Deviation 48.6 fL (35.1-46.3); Red Blood Cell Count 5.12 M/mm3 (4.30-5.90); White Blood Cell Count 6.15 K/mm3 (4.00-11.30)
[2021-03-05 09:38] LABS: Albumin, Blood 3.8 g/dL (3.4-5.0); Albumin/Globulin Ratio 0.8 (0.8-1.8); Bilirubin, Total 0.7 mg/dL (0.1-1.0); Bun/Creatinine Ratio 5.3 (12.0-20.0); Creatinine, Blood 6.92 mg/dL (0.60-1.20); Globulin, Blood 4.6 g/dL (2.2-4.0); Potassium, Blood 4.3 mmol/L (3.5-5.5); Total Protein, Blood 8.4 g/dL (6.4-8.2)
[2021-03-05] MEDS ORDERED: Norco 5-325 Ta1 EACH PO (10:21)
[2021-03-05] MEDS ORDERED: Zofran8 MG PO (10:21)
[2021-03-06] MEDS ORDERED: SIME80CH PO (09:30)
[2021-03-06] MEDS ORDERED: VITAMIN D310 MC4 PO (09:34)
[2021-03-06] MEDS ORDERED: Milk Thistle175 M1 PO (09:34)
== END 2021-03-05 10:35 | disposition home or self-care (01) ==
LOC: ER 08:31
PROVIDERS: Physician Assistant
DX: K80.20 Calculus of gallbladder without cholecystitis without obstruction (principal); E11.22 Type 2 diabetes mellitus with diabetic chronic kidney disease; E11.40 Type 2 diabetes mellitus with diabetic neuropathy, unspecified; I12.9 Hypertensive chronic kidney disease with stage 1 through stage 4 chronic kidney disease, or unspecified chronic kidney disease; N18.9 Chronic kidney disease, unspecified; Z99.2 Dependence on renal dialysis; Z88.1 Allergy status to other antibiotic agents; Z88.6 Allergy status to analgesic agent; Z79.02 Long term (current) use of antithrombotics/antiplatelets; Z79.4 Long term (current) use of insulin; Z79.899 Other long term (current) drug therapy
CPT/HCPCS: 36415; 76705; 80053; 83690; 85025; 93005; 93010; 96374; 96375; 99284-25; J1170; J2405

== ENCOUNTER → 2021-03-12 | Outpatient (CLI) | payer OTHER ==
[~2021-03-12] MED LIST changes: +CEFAZOLIN IV; +HYDR1TAB94 PO; +Milk Thistle175 M1 PO; +ONDA4ODT SL; +PANT40 PO; +Ropinirole HCl0.5 MG PO; +SIME80CH PO; +TEMA30 PO; +VISBIOME 112.51 EACH PO; +VITAMIN D310 MC4 PO; +Zofran8 MG PO
[2021-03-12 17:57] LABS: Appearance, Urine Clear (Clear); Bilirubin, Urine Neg (Neg); Blood, Urine 2+ (Neg); Color, Urine Yellow (P-Yellow); Glucose Qualitative, Urine 2+ (Neg); Ketones, Urine Neg (Neg); Leukocyte Esterase, Urine 1+ (Neg); Nitrite, Urine Neg (Neg); Protein, Urine 3+ (Neg); Urobilinogen, Urine NORM (Normal); pH, Urine 6.5 (5.0-8.0)
[2021-03-12 18:08] LABS: Red Blood Cells, Urine 0-2 /hpf (0-2)
[2021-03-12 18:09] LABS: Bacteria Few /hpf; Squamous Epithelial Cells Few /hpf (Few)
== END | disposition home or self-care (01) ==
LOC: LAB 13:01 → LAB SHORT 13:01
PROVIDERS: Internal Medicine Nephrology
DX: N39.0 Urinary tract infection, site not specified (principal)
CPT/HCPCS: 81001; 87086

== ENCOUNTER 2021-03-13 09:16 | Day surgery (SDC) | payer OTHER ==
[~2021-03-13] VITALS: Ht 175.3 cm; Wt 156.0 kg
[~2021-03-13 09:16] MED LIST changes: -CEFAZOLIN IV; -HYDR1TAB94 PO; -ONDA4ODT SL; -PANT40 PO; -Ropinirole HCl0.5 MG PO; -TEMA30 PO; -VISBIOME 112.51 EACH PO
--- NOTE | 2021-03-13 09:46 | NUR ---
History, Chart, Medications and Allergies reviewed before start of procedure. Patient States Post-Procedure ride home has been arranged. Patient confirms NPO status and agrees with scheduled surgery.
[2021-03-13] MEDS ORDERED: Calcium Acetat667 MG PO (09:56)
[2021-03-13] MEDS ORDERED: GABA100 PO (10:05)
--- NOTE | 2021-03-13 10:41 | NUR ---
Ambulatory in Day Surgery History, Chart, Medications and Allergies reviewed before start of procedure. Lungs clear T/O to Auscultation. Patient confirms NPO status and agrees with scheduled surgery. Pre-Op teaching done. Pt verbalizes understanding. Patient States Post-Procedure ride home has been arranged.
--- NOTE | 2021-03-13 18:14 | NUR ---
SUMMARY PT [place] RENAL DIET FOR DINNER WITHOUT NAUSEA. PT DOZING AFTER PAIN MEDS. OOB TO BATHROOM X1 POST OP WITH MODERATE ASSIT. YESICA WITH BILIOUS OUTPUT. ABD DRESSINGS WITH SHADOWING VISIBLE AT DRAIN INSERTION SITE
--- NOTE | 2021-03-14 04:18 | NUR ---
SHIFT SUMMARY: POST OP DAY 1 PT HAVING NAUSEA, MEDICATED WITH ZOFRAN. COMPLAINS OF ABDOMINAL PAIN, GIVEN SALTINE CRACKERS PER PT REQUEST. YESICA DRAIN IS DRAINING WELL AND EMPTIED SEVERAL TIMES. ABD DRESSINGS X4 ARE CDI.
--- NOTE | 2021-03-14 06:02 | NUR ---
POD 1 S/P LAP YADY. VSS, BP MUCH IMPROVED. DRESSINGS CDI. YESICA PUTTING OUT LARGE AMT OF BILE DRNG; APPX 270ML THIS SHIFT. PT HAD 1 EPISODE OF NAUSEA, REP RELIEF W/ZOFRAN AND CRACKERS. BT HYPO, PT REP NO FLATUS. PT MED FOR PAIN X1, DECLINED NEED FOR ADDITIONAL PAIN MEDS. PT UP IN ROOM W/FWW+SBA, [place] WELL.
[2021-03-14 08:14] LABS: Alanine Aminotransfer (ALT/SGP 68 U/L (12-78); Albumin, Blood 3.4 g/dL (3.4-5.0); Albumin/Globulin Ratio 0.7 (0.8-1.8); Alk Phos 87 U/L (50-136); Anion Gap 8 mmol/L (6-16); Aspartate Aminotrans (AST/SGOT 58 U/L (12-37); Bilirubin, Direct 0.2 mg/dL (0.0-0.3); Bilirubin, Indirect 0.8 mg/dL (0.1-0.7); Blood Urea Nitrogen 50 mg/dL (8-24); Bun/Creatinine Ratio 7.1 (12.0-20.0); CO2, Blood 32 mmol/L (21-32); Calcium, Blood 7.5 mg/dL (8.5-10.1); Chloride, Blood 93 mmol/L (98-108); Creatinine, Blood 7.09 mg/dL (0.60-1.20); Globulin, Blood 4.6 g/dL (2.2-4.0); Glomerular Filtration Rate 8 (60-); Glucose, Blood 221 mg/dL (70-99); Phosphorus, Blood 4.3 mg/dL (2.5-4.9); Potassium, Blood 4.3 mmol/L (3.5-5.5); Sodium, Blood 133 mmol/L (136-145)
--- NOTE | 2021-03-14 10:48 | NUR ---
1045 discharge instructions reviewed with patient. pt educated on emptying pablo drain and recording drainage amounts. pt ani po food and fluids without nausea. ptreports pain is adequately controlled with oral meds. pt has dialysis scheduled for 1430 today
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
== END 2021-03-14 10:47 | disposition home or self-care (01) ==
LOC: ORSCMMR 09:16 → ORD 11:00 → ORSCMMR 11:00 → SURS 14:50 → ORSCMMR 03-14 10:47
PROVIDERS: Surgery
PROC: 0FT44ZZ Resection of Gallbladder, Percutaneous Endoscopic Approach (ICD-10-PCS; principal; 2021-03-13 11:00)
DX: K80.10 Calculus of gallbladder with chronic cholecystitis without obstruction (principal); E11.9 Type 2 diabetes mellitus without complications; N18.6 End stage renal disease; G47.33 Obstructive sleep apnea (adult) (pediatric); I25.10 Atherosclerotic heart disease of native coronary artery without angina pectoris; I10 Essential (primary) hypertension; Z79.02 Long term (current) use of antithrombotics/antiplatelets; E66.01 Morbid (severe) obesity due to excess calories; Z68.43 Body mass index [BMI] 50.0-59.9, adult; Z79.899 Other long term (current) drug therapy
CPT/HCPCS: 36415; 80048; 80076; 82947; 84100; 84132; 85014; 87081; 88304; A9270; J0694; J2370; J2405; J2550; J2704; J3010; J3490; J7030

== ENCOUNTER 2021-04-05 04:42 | Inpatient (IN) | payer OTHER ==
[~2021-04-05] VITALS: Ht 172.7 cm; Wt 129.2 kg
[2021-04-05 05:33] LABS: Hemoglobin 12.1 g/dL (13.5-17.5); Mean Corpuscular HGB 28.3 pg (26.0-34.0); Mean Corpuscular HGB Conc 32.7 g/dL (31.5-36.5); Mean Corpuscular Volume 87 fL (80-100); Mean Platelet Volume 8.6 fL (9.1-12.4); Platelet Count 210 K/mm3 (150-400); RDW Coefficient Variation 14.2 % (11.7-14.2); RDW Standard Deviation 45.3 fL (35.1-46.3); Red Blood Cell Count 4.27 M/mm3 (4.30-5.90); White Blood Cell Count 10.77 K/mm3 (4.00-11.30)
[2021-04-05 05:50] LABS: BAND PERCENT MAN 21 % (0-8); BASOPHILS PERCENT MAN 0 % (0-2); EOSINOPHILS PERCENT MAN 0 % (0-6); LYMPHOCYTES ABSOLUTE MAN 0.75 K/mm3 (0.84-5.20); LYMPHOCYTES PERCENT MAN 7 % (21-46); MONOCYTES ABSOLUTE MAN 0.43 K/mm3 (0.16-1.47); MONOCYTES PERCENT MAN 4 % (4-13); NEUTROPHILS ABSOLUTE MAN 9.58 K/mm3 (1.96-9.15); SEG NEUTROPHILS PERCENT MAN 68 % (41-73); TOTAL CELLS COUNTED 100
[2021-04-05 05:56] LABS: Source, Urine Catheter
[2021-04-05 05:58] LABS: Bilirubin, Urine Neg (Neg); Blood, Urine 5+ (Neg); Glucose Qualitative, Urine 3+ (Neg); Ketones, Urine Neg (Neg); Leukocyte Esterase, Urine Neg (Neg); Nitrite, Urine Neg (Neg); Protein, Urine 3+ (Neg); Urobilinogen, Urine NORM (Normal); pH, Urine 6.5 (5.0-8.0)
[2021-04-05 06:00] LABS: Albumin, Blood 2.6 g/dL (3.4-5.0); Albumin/Globulin Ratio 0.4 (0.8-1.8); Bilirubin, Total 0.7 mg/dL (0.1-1.0); Bun/Creatinine Ratio 8.1 (12.0-20.0); Calcium, Blood 8.3 mg/dL (8.5-10.1); Creatinine, Blood 8.81 mg/dL (0.60-1.20); Globulin, Blood 5.8 g/dL (2.2-4.0); Potassium, Blood 4.1 mmol/L (3.5-5.5); Total Protein, Blood 8.4 g/dL (6.4-8.2)
[2021-04-05 06:05] LABS: Appearance, Urine Hazy (Clear); Color, Urine Yellow (P-Yellow)
[2021-04-05 06:06] LABS: Amorphous Mod (0-Heavy); Bacteria Few /hpf; Squamous Epithelial Cells Rare /hpf (Few); White Blood Cells, Urine Rare /hpf (0-5)
[2021-04-05] MEDS ORDERED: Ropinirole HCl0.5 MG PO (13:18)
--- NOTE | 2021-04-05 18:13 | NUR ---
UPDATE PHYSICIAN UPDATED ON PT'S STATUS. PHYSICIAN AWARE OF PT'S TACHYCARDIC STATE. PT BEGAN HALLUCINATING AND GRASPING FOR THINGS IN THE AIR. PHYSICIAN AWARE. PHYSICIAN NOTIFIED PT REPORTING PAIN IN HIPS. WILL CONTINUE TO MONITOR UNTIL REPORT GIVEN TO NIGHTSHIFT RN.
--- NOTE | 2021-04-05 18:16 | NUR ---
SHIFT SUMMARY PT ALERT AND ORIENTED AT TIMES. SLOW TO RESPOND, LETHARGIC AND CONFUSED AT TIMES. PT ABLE TO ASSIST IN Q 2 TURNS. YADY DRAIN DRAINING. OXYGEN SATURATION MAINTAINED ABOVE 92% ON 2 L OF OXYGEN VIA NC. HR TACHYCARDIC, PHYSICIAN AWARE. DEPENDS IN PLACE FOR INCONTINENCE. NO CP OR PRESSURE REPORTED. PT REPORTS HIP PAIN, PHYSICIAN AWARE. WILL MEDICATE PER EMAR. PT BEGINNING TO GRASP HANDS INTO AIR AND HALLUCINATE. PHYSICIAN AWARE. WILL CONTINUE TO MONITOR UNTIL REPORT GIVEN TO NIGHTSHIFT RN.
[2021-04-06 04:19] LABS: Hematocrit 36.6 % (37.0-53.0); Hemoglobin 11.8 g/dL (13.5-17.5); Mean Corpuscular HGB Conc 32.2 g/dL (31.5-36.5); Mean Corpuscular Volume 87 fL (80-100); Platelet Count 169 K/mm3 (150-400); RDW Coefficient Variation 14.4 % (11.7-14.2); RDW Standard Deviation 46.1 fL (35.1-46.3); Red Blood Cell Count 4.21 M/mm3 (4.30-5.90); White Blood Cell Count 10.21 K/mm3 (4.00-11.30)
[2021-04-06 04:39] LABS: Albumin, Blood 2.2 g/dL (3.4-5.0); Albumin/Globulin Ratio 0.4 (0.8-1.8); Bilirubin, Total 0.6 mg/dL (0.1-1.0); Bun/Creatinine Ratio 8.3 (12.0-20.0); Calcium, Blood 8.6 mg/dL (8.5-10.1); Creatinine, Blood 7.6 mg/dL (0.60-1.20); Globulin, Blood 5.9 g/dL (2.2-4.0); Potassium, Blood 4.5 mmol/L (3.5-5.5); Total Protein, Blood 8.1 g/dL (6.4-8.2)
[2021-04-06 05:18] LABS: BAND PERCENT MAN 12 % (0-8); BASOPHILS PERCENT MAN 0 % (0-2); EOSINOPHILS PERCENT MAN 0 % (0-6); LYMPHOCYTES ABSOLUTE MAN 0.71 K/mm3 (0.84-5.20); LYMPHOCYTES PERCENT MAN 7 % (21-46); MONOCYTES ABSOLUTE MAN 0.51 K/mm3 (0.16-1.47); MONOCYTES PERCENT MAN 5 % (4-13); NEUTROPHILS ABSOLUTE MAN 8.98 K/mm3 (1.96-9.15); SEG NEUTROPHILS PERCENT MAN 76 % (41-73); TOTAL CELLS COUNTED 100
--- NOTE | 2021-04-06 06:43 | NUR ---
A/O X3-4. PREVIOUS CONFUSION APPEARING TO CLEAR. SLEEPING INTERMITTENTLY. TREMULOUS AT TIMES. EXTREMELY DIAPHORETIC. AFEBRILE. DENIES C/P SOB. SPO2 96% ROOM AIR. VSS. YESICA DRAIN PATENT TO BULB SUCTION. STRICT OUTPUT EQUALED 130ML GREEN/MILKY DRAINAGE. GOOD APPETITE, EATING MULTIPLE SNACKS. ELEVATED GLUCOSE. INSULIN COVERAGE CHANGED FROM Q6HRS TO AC/HS. BLOOD CX RESULTS CALLED TO . NEW ORDERS FOR VANCO ABX. NO OTHER NEEDS/CONCERNS AT THIS TIME
--- NOTE | 2021-04-06 07:49 | NUR ---
X-RAY CANCEL SPOKE WITH SHOTGUN SHELL LOADING MACHINE OPERATOR REGARDING X RAY FOR ABD/PELVIS. REQUESTING TO BE CANCELLED D/T PREVIOUS SCAN ON 04/05. PHYSICIAN ORDERS FOR XRAY THIS AM TO BE CANCELLED.
--- NOTE | 2021-04-06 11:06 | NUR ---
UPDATE SPOKE WITH PHYSICIAN REGARDING ORDERED MRI. ATTEMPTING TO FILL MRI SCREENING SHEET WITH PT. PT CONFUSED AT TIMES, PT'S RELATIVE CALLED TO ATTEMPT TO OBTAIN INFORMATION. PT'S RELATIVE STATED PT HAS BEEN TO [facility]. MEDICAL RECORDS REQUESTED FROM [facility] TO ATTEMPT TO FINISH SCREENING PT FOR MRI.
--- NOTE | 2021-04-06 15:54 | NUR ---
UPDATE PHYSICIAN NOTIFIED THAT PT'S MENTATION CLEARED. PT NOW ALERT AND ORIENTED X 4. NO CONFUSION AT THIS TIME. MRI FORM FILLED OUT BY PT. PHYSICIAN AGREES TO ALLOW PT TO HAVE MRI BASED ON MENTATION IMPROVEMENT. PT TO MRI. PT UNABLE TO RECIEVE MRI D/T PT'S SIZE. WILL INFORM PHYSICIAN.
--- NOTE | 2021-04-06 18:02 | NUR ---
SHIFT SUMMARY PT ALERT AND ORIENTED X 4. EXPERIENCED CONFUSION ONE TIME THIS AM. PT AWARE OF DATE, LOCATION, PRESIDENT, REASON FOR ADMITTANCE TO HOSPITAL. PT ABLE TO FILL OUT MRI SCREEN FORM, SEE NOTES. MRI NOT DONE D/T PT SIZE. PHYSICIAN NOTIFIED. PT REPORTS PAIN IN BACK/HIPS MEDICATED PER EMAR. PROVIDED WITH HEAT PACK. PT REPORTS RELIEF. HR STABLE. NOT TACHYCARDIC. BP STABLE. OXYGEN SATURATION MAINTAINED ABOVE 92% ON RA. PT VOMITTED ONE TIME THIS EVENING. ZOFRAN GIVEN, PT REPORTS RELIEF. PT 2 PERS ASSIST WITH WALKER TO CHAIR. PT ABLE TO TURN SELF IN BED. YESICA DRAIN WNL. DRAINING GREEN BILE. DEPENDS ON FOR INCONTINENCE. BLADDER SCAN DONE, SEE URINARY ASSESSMENT. NO CP OR PRESSURE. WILL CONT TO MONITOR UNTIL REPORT GIVEN TO NIGHTSHIFT RN.
[2021-04-06 22:18] LABS: Vancomycin, Random 20.1 ug/mL
[2021-04-07 04:11] LABS: Hematocrit 33.6 % (37.0-53.0); Mean Corpuscular HGB 28.1 pg (26.0-34.0); Mean Corpuscular HGB Conc 32.7 g/dL (31.5-36.5); Mean Corpuscular Volume 86 fL (80-100); Mean Platelet Volume 8.9 fL (9.1-12.4); Platelet Count 169 K/mm3 (150-400); RDW Coefficient Variation 14.4 % (11.7-14.2); RDW Standard Deviation 45.1 fL (35.1-46.3); Red Blood Cell Count 3.92 M/mm3 (4.30-5.90)
[2021-04-07 04:44] LABS: Magnesium, Blood 2.3 mg/dL (1.6-2.4)
[2021-04-07 04:45] LABS: BAND PERCENT MAN 27 % (0-8); BASOPHILS PERCENT MAN 0 % (0-2); EOSINOPHILS PERCENT MAN 0 % (0-6); LYMPHOCYTES ABSOLUTE MAN 0.78 K/mm3 (0.84-5.20); LYMPHOCYTES PERCENT MAN 8 % (21-46); MONOCYTES ABSOLUTE MAN 0.88 K/mm3 (0.16-1.47); MONOCYTES PERCENT MAN 9 % (4-13); NEUTROPHILS ABSOLUTE MAN 8.13 K/mm3 (1.96-9.15); SEG NEUTROPHILS PERCENT MAN 56 % (41-73); TOTAL CELLS COUNTED 100
[2021-04-07 04:53] LABS: Albumin, Blood 2.1 g/dL (3.4-5.0); Albumin/Globulin Ratio 0.4 (0.8-1.8); Bilirubin, Total 0.6 mg/dL (0.1-1.0); Bun/Creatinine Ratio 9.3 (12.0-20.0); Calcium, Blood 8.3 mg/dL (8.5-10.1); Creatinine, Blood 8.88 mg/dL (0.60-1.20); Globulin, Blood 5.5 g/dL (2.2-4.0); Phosphorus, Blood 5.8 mg/dL (2.5-4.9); Potassium, Blood 4.3 mmol/L (3.5-5.5); Total Protein, Blood 7.6 g/dL (6.4-8.2)
--- NOTE | 2021-04-07 06:20 | NUR ---
A/O X4. PLEASANT/COOPERATIVE. REQUESTED TO GET OUT OF BED IN TO CHAIR BECAUSE OF CHRONIC BACK PAIN. PAIN CONTROLLED WITH PO TYLENOL AND REPOSITIOINING. IV ABX CONTINUED. YESICA DRAIN DISCHARGE DECREASED TO ABOUT 20ML GREEN FLUID Q4 HRS. X1 IV LOPRESSOR GIVEN FOR ELEVATED SBP GREATER THAN 160. SBP HAS SINCE REMAINED LESS THAN 160. NO OTHER COMPLAINTS/NEEDS AT THIS TIME.
[2021-04-07 13:10] LABS: Vancomycin, Random 11.7 ug/mL
--- NOTE | 2021-04-07 16:10 | NUR ---
SHIFT SUMMARY PT A&Ox4; CALM AND COOPERATIVE WITH CARE. ASSISTS WITH REPOSITIONING. PT REPORTS BACK PAIN, MEDICATED x1 WITH TYLENOL AND 1x WITH NORCO AND PROVIDED A HEATING PAD, PT STATES MINIMAL PAIN RELEIF. PT SOB WITH EXERTION, SPO2 >90% ON RA. PT DENIES CHEST PAIN, NASUEA AND DIZZINESS T/O SHIFT. PT RECEIVING IV ANTIBIOTICS. VSS. NO OTHER ACUTE CHANGES NOTED. WILL CONTINUE TO MONITOR UNTIL REPORT GIVEN TO ONCOMING RN.
[2021-04-08 04:08] LABS: Hematocrit 33.8 % (37.0-53.0); Hemoglobin 11.3 g/dL (13.5-17.5)
[2021-04-08 04:28] LABS: Albumin, Blood 2.1 g/dL (3.4-5.0); Anion Gap 10 mmol/L (6-16); Blood Urea Nitrogen 63 mg/dL (8-24); Bun/Creatinine Ratio 8.6 (12.0-20.0); CO2, Blood 31 mmol/L (21-32); Calcium, Blood 8.4 mg/dL (8.5-10.1); Chloride, Blood 91 mmol/L (98-108); Creatinine, Blood 7.29 mg/dL (0.60-1.20); Glomerular Filtration Rate 8 (60-); Glucose, Blood 280 mg/dL (70-99); Magnesium, Blood 2.1 mg/dL (1.6-2.4); Phosphorus, Blood 4.8 mg/dL (2.5-4.9); Potassium, Blood 4.2 mmol/L (3.5-5.5); Sodium, Blood 132 mmol/L (136-145)
--- NOTE | 2021-04-08 15:00 | NUR ---
TRANSFER NOTE PT A&Ox3, FORGETFUL AT TIMES, PT CALM AND COOPERATIVE WITH CARE. PT RESTING UP IN CHAIR FOR MAJORITY OF SHIFT. UP WITH 1 PERSON ASSIST. PT REPORTS PAIN TO ABD/BACK, DENIES NEED FOR MEDICATION. PT SOB WITH EXERTION, SPO2 >90% ON RA. PT DENIES CHEST PAIN, NAUSEA AND DIZZINESS T/O SHIFT. YESICA DRAIN TO RIGHT ABD DRESSING WITH GAUZE SPONGE AND TEGADERM PER DR BRADLEY AT BEDSIDE. VSS. NO OTHER ACUTE CHANGES NOTED. REPORT GIVEN TO RN ASSUMING CARE OF PT. [facility].
[2021-04-08 15:24] LABS: Vancomycin, Random 23.5 ug/mL
[2021-04-09 01:30] LABS: SARS-Cov-2 (COVID-19) PCR, MMC NEGATIVE (NEGATIVE)
[2021-04-09] MEDS ORDERED: TEMA30 PO (04:43)
[2021-04-09] MEDS ORDERED: PANT40 PO (04:49)
--- NOTE | 2021-04-09 04:54 | NUR ---
PT was transferred from PCU yesterday. He fell at home & was down on the floor for several days. Was septic. Had lap chose 03/14/21 & has YESICA drain patent rt l abd. 45 ml thick green fluid drained. NV has very obese abd & he has difficulty with bed mobility & has very unsteady gait whan up with 2 max to bathroom. High fall risk bed alarm on & awqare PT is unsteady recent fall & confused. PT pulled out his secured powerglide this AM cannula intact. ESRD on dialysis via lt arm AV fistula. PT has cough productive of thick yellow sputum. NPO for ARETHA after echo found abnormality. EF 70%. Chronic & acute back pain relieved by oral pain meds.
[2021-04-09 05:45] LABS: Hematocrit 30.9 % (37.0-53.0); Hemoglobin 10.2 g/dL (13.5-17.5)
[2021-04-09 06:27] LABS: Magnesium, Blood 2.5 mg/dL (1.6-2.4)
[2021-04-09 06:40] LABS: Anion Gap 11 mmol/L (6-16); Blood Urea Nitrogen 81 mg/dL (8-24); Bun/Creatinine Ratio 9.4 (12.0-20.0); CO2, Blood 29 mmol/L (21-32); Calcium, Blood 8.1 mg/dL (8.5-10.1); Chloride, Blood 89 mmol/L (98-108); Creatinine, Blood 8.66 mg/dL (0.60-1.20); Glomerular Filtration Rate 7 (60-); Glucose, Blood 251 mg/dL (70-99); Phosphorus, Blood 5.2 mg/dL (2.5-4.9); Sodium, Blood 129 mmol/L (136-145)
--- NOTE | 2021-04-09 08:31 | NUR ---
PT ARRIVED IN PROCEDURE ROOM ON [facility]. DR CERVANTES IN ROOM TO SEE PT. PT DENIES CHEST PAIN. PT A&O X 3.
--- NOTE | 2021-04-09 09:17 | NUR ---
PT TOLERATED ARETHA WELL.
--- NOTE | 2021-04-09 12:46 | NUR ---
0820 TO ARETHA, 1020 LESLY Malave/Michelle RN BROUGHT PT BACK. STATES START SOFT DIET PER . NEED TO GET DIALYSIS NOW. GAVE AM MEDS. 1040 TO DIALYSIS.
--- NOTE | 2021-04-09 18:24 | NUR ---
PT PLEASNT TODAY. DID HAVE ARETHA THIS AM. ALSO IMMED FOLLOWED TO DIALYSIS. NO C/O POAIN TO ME THIS DAY. DID 2 ASST TO CHAIR AND TO BSC. DID CLARIFY TO LOW S/S AC/HS . NO FURTHER CONCERNS NOTED. YESICA DRAIN SITE CDI THIS AFT. BED IN LOW POSITION, CALL LITE IN [facility], CALLS APPROP
[2021-04-10 05:14] LABS: BASOPHILS ABSOLUTE AUTO 0.04 K/mm3 (0.00-0.23); BASOPHILS PERCENT AUTO 1 % (0-2); EOSINOPHILS ABSOLUTE AUTO 0.05 K/mm3 (0.00-0.68); EOSINOPHILS PERCENT AUTO 1 % (0-6); Hematocrit 32.3 % (37.0-53.0); Hemoglobin 10.8 g/dL (13.5-17.5); IMMATURE GRAN ABSOLUTE AUTO 0.27 K/mm3 (0.00-0.10); IMMATURE GRAN PERCENT AUTO 4 % (0-1); LYMPHOCYTES ABSOLUTE AUTO 1.54 K/mm3 (0.84-5.20); LYMPHOCYTES PERCENT AUTO 21 % (21-46); MONOCYTES ABSOLUTE AUTO 0.78 K/mm3 (0.16-1.47); MONOCYTES PERCENT AUTO 11 % (4-13); Mean Corpuscular HGB 28.2 pg (26.0-34.0); Mean Corpuscular HGB Conc 33.4 g/dL (31.5-36.5); Mean Corpuscular Volume 84 fL (80-100); Mean Platelet Volume 8.9 fL (9.1-12.4); NEUTROPHILS ABSOLUTE AUTO 4.58 K/mm3 (1.96-9.15); NEUTROPHILS PERCENT AUTO 63 % (41-73); Platelet Count 198 K/mm3 (150-400); RDW Coefficient Variation 14.2 % (11.7-14.2); RDW Standard Deviation 43.9 fL (35.1-46.3); Red Blood Cell Count 3.83 M/mm3 (4.30-5.90); White Blood Cell Count 7.26 K/mm3 (4.00-11.30)
[2021-04-10 05:41] LABS: Magnesium, Blood 2.4 mg/dL (1.6-2.4)
[2021-04-10 05:42] LABS: Albumin/Globulin Ratio 0.4 (0.8-1.8); Bilirubin, Total 0.4 mg/dL (0.1-1.0); Bun/Creatinine Ratio 8.9 (12.0-20.0); Calcium, Blood 7.8 mg/dL (8.5-10.1); Creatinine, Blood 7.49 mg/dL (0.60-1.20); Globulin, Blood 5.5 g/dL (2.2-4.0); Phosphorus, Blood 5.4 mg/dL (2.5-4.9); Total Protein, Blood 7.5 g/dL (6.4-8.2)
--- NOTE | 2021-04-10 06:07 | NUR ---
SHIFT SUMMARY ALERT, ABLE TO MAKE NEEDS KNOWN. COOPERATIVE WITH CARE. FORGETFUL AT TIMES. NO C/O PAIN/DISCOMFORT. ABX INFUSED W/O COMPLICATION TO RAC. DID NOT APPEAR TO REST MUCH OVERNIGHT. DRSG CHANGED TO YESICA DRAIN SITE. CONTINUES TO DRAIN BILE. NO N/V NOTED. 1P ASSIST /c FWW/GB; GAIT APPEARS STEADY. BED IN LOWEST POSITION; ALARM ON. CALL LIGHT AND BELONGINGS WITHIN REACH. CONTINUE WITH CURRENT PLAN OF CARE. REPORT TO ONCOMING RN.
--- NOTE | 2021-04-10 10:43 | NUR ---
1030 - NATIONAL EXPANSION RECRUITER ASSISTED PT INTO SHOWER FROM CHAIR, NOTIFIED THIS RN THAT YESICA DRAIN BULB MISSING FROM END OF TUBE. FOUND BULB ON THE FLOOR NEAR HIS CHAIR. PT DENIES KNOWING HOW IT BECAME DETACHED. 1036 - DR WHITMAN INFORMED AND CALL PLACED TO DR BRADLEY'S OFFICE. OFFICE WILL SEND HIM A MESSAGE HE IS IN SURGERY AT THIS TIME.
--- NOTE | 2021-04-10 14:00 | NUR ---
DR BRADLEY INTO SEE PT REGARDING YESICA DRAIN. APPROVED NURSING REATTACHING BULB. HE DOES NOT WANT THE BULD COMPRESSED AT THIS TIME, WILL REASSESS.
--- NOTE | 2021-04-10 18:22 | NUR ---
PT BRONCH CANCELLED AND BONE BX DONE INSTEAD. PT TOLERATED WELL. STANDING AT BEDSIDE AND USING URINAL INDEPENDENTLY. PT HUNGRY, DINNER TRAY ORDERED. NO ACUTE CHANGES NOTED. WILL CONTINUE TO MONITOR AND REPORT TO ONCOMING RN
--- NOTE | 2021-04-10 18:40 | NUR ---
PT RECEIVED SAMIR POWER GLIDE THIS AFTERNOON AFTER PULLING HIS RAC IV. TOLERATED WELL. BED ALARM ARMED, PT BEEN IMPULSIVE AND FORGETFUL TODAY, PULLS ON LINES WHEN HE NEEDS TO GET UP TO BR. UP WITH ONE ASSIST WITH FWW. NO ACUTE CHANGES NOTED THIS SHIFT, WILL CONTINUE TO MONITOR AND REPORT TO ONCOMING RN
[2021-04-11 05:34] LABS: Hematocrit 32.5 % (37.0-53.0); Hemoglobin 10.7 g/dL (13.5-17.5)
--- NOTE | 2021-04-11 05:53 | NUR ---
SHIFT SUMMARY ALERT, ABLE TO MAKE NEEDS KNOWN. COOPERATIVE WITH CARE. CONFUSED/FORGETFUL AT TIMES. NO C/O PAIN/DISCOMFORT. UP FREQUENTLY TO BSC. APPEARED TO REST MUCH BETTER THIS SHIFT. YESICA DRAIN INTACT AND DRAINING MINIMALLY. CONTINUES TO EXIT BED WITHOUT WARNING; DOES NOT UTILIZE CALL SYSTEM AFTER EDUCATION ON SAFETY. BP LABILE SHIFT SHIFT. BED IN LOWEST POSITION; ALARM ON. CALL LIGHT AND BELONGINGS WITHIN REACH. CONTINUE WITH CURRENT PLAN OF CARE. REPORT TO ONCOMING RN.
[2021-04-11 06:00] LABS: Magnesium, Blood 2.5 mg/dL (1.6-2.4)
[2021-04-11 06:07] LABS: Albumin, Blood 2.1 g/dL (3.4-5.0); Anion Gap 10 mmol/L (6-16); Blood Urea Nitrogen 78 mg/dL (8-24); Bun/Creatinine Ratio 8.9 (12.0-20.0); CO2, Blood 29 mmol/L (21-32); Calcium, Blood 7.9 mg/dL (8.5-10.1); Chloride, Blood 89 mmol/L (98-108); Creatinine, Blood 8.79 mg/dL (0.60-1.20); Glomerular Filtration Rate 7 (60-); Glucose, Blood 200 mg/dL (70-99); Phosphorus, Blood 5.6 mg/dL (2.5-4.9); Potassium, Blood 4.3 mmol/L (3.5-5.5); Sodium, Blood 128 mmol/L (136-145)
--- NOTE | 2021-04-11 06:10 | NUR ---
CRITICAL VALUE CALLED TO REPORT CRITICAL VALUE TO DR. MESA PER WORKERS COMPENSATION ATTORNEY. NO ANSWER. MSG LEFT /c RM NUMBER, VALUE AND TIME.
--- NOTE | 2021-04-11 19:20 | NUR ---
PT RESTING COMFORTABLY, NO ACUTE CHANGES NOTED THIS SHIFT, WILL CONTINUE TO MONITOR AND REPORT TO ONCOMING RN
[2021-04-12 04:40] LABS: Hematocrit 30.9 % (37.0-53.0); Hemoglobin 10.2 g/dL (13.5-17.5)
[2021-04-12 05:02] LABS: Anion Gap 8 mmol/L (6-16); Blood Urea Nitrogen 48 mg/dL (8-24); Bun/Creatinine Ratio 6.8 (12.0-20.0); CO2, Blood 30 mmol/L (21-32); Chloride, Blood 92 mmol/L (98-108); Creatinine, Blood 7.04 mg/dL (0.60-1.20); Glomerular Filtration Rate 8 (60-); Glucose, Blood 187 mg/dL (70-99); Magnesium, Blood 2.4 mg/dL (1.6-2.4); Phosphorus, Blood 4.9 mg/dL (2.5-4.9); Potassium, Blood 4.1 mmol/L (3.5-5.5); Sodium, Blood 130 mmol/L (136-145)
--- NOTE | 2021-04-12 05:23 | NUR ---
SHIFT SUMMARY: AOX3, FORGETFUL AT TIMES BUT HAS DONE WELL TONIGHT. CALLED EVERY TIME TO GET UP, NEVER SET OFF ALARM. VOIDS SCANT AMOUNT AT TIMES. SMALL BM NOTED. YESICA-DRAIN WITH MAYBE 10CC IN THE BULB DID NOT DUMP IT. DRESSING IS STILL INTACT. ABD ROUND STATES IS HIS NORM. 1 ASSIST WITH WALKER TO BATHROOM. LABS THIS AM NA+ 130, CREATINE 7.04, GFR-8. NO PAIN THIS SHIFT. BS HAD NO COVERAGE OTHER THEN LONG ACTING. VS SHOWED BP RUNNING 150'S BUT REST OF VITALS ARE WNL. AFEBRILE. NO ACUTE CHANGES TO REPORT. CALL LIGHT IS IN REACH, BED ALARM IS ON.
--- NOTE | 2021-04-12 16:42 | NUR ---
PT IS A/OX3, PLEASANT AND COOPERATIVE APPEARS TO HAVE SOME VISUAL AND AUDITORY HALUCINATIONS AT TIMES, PT REPORTED TO HAVE SOME DIZZINESS TODAY, WHEN THE PT WAS UP AMBULATING WITH THE PHYSCIAL THERAPIST HE FELT DIZZY/CLOUDY, HIS BP WAS ELEVATED 185/95 APROXIMATLY, WHEN HE LAID BACK DOWN HIS BP RETURNED TO WNL, THE PT WAS UP WITH ASSIST TO THE BATHROOM T/O THE DAY, THE PT APPEARS TO BE BREATHING EASILY ON RA AT REST, CALL LIGHT IN REACH, WILL CONTINUE TO MONITOR AND ASSESS FOR CHANGES
--- NOTE | 2021-04-13 03:46 | NUR ---
SHIFT SUMMARY NO ACUTE CHANGES TO REPORT THIS SHIFT. PT HAS RESTED MOST OF THE NIGHT, YESICA DRAIN IN PLACE WITH MINIMAL OUTPUT, PT IS DENYING PAIN. VITALS ARE STABLE. 1 PA WITH FWW TO THE BATHROOM. PT HAS BEEN HAVING LOOSE STOOLS SINCE BOWEL CARE WAS STARTED. STOOL SOFTNERS HELD THIS SHIFT. BED IN LOWEST POSTION, CALL LIGHT WITHIN REACH.
[2021-04-13 06:09] LABS: BASOPHILS ABSOLUTE AUTO 0.05 K/mm3 (0.00-0.23); BASOPHILS PERCENT AUTO 1 % (0-2); EOSINOPHILS ABSOLUTE AUTO 0.09 K/mm3 (0.00-0.68); EOSINOPHILS PERCENT AUTO 1 % (0-6); Hemoglobin 10.9 g/dL (13.5-17.5); IMMATURE GRAN ABSOLUTE AUTO 0.33 K/mm3 (0.00-0.10); IMMATURE GRAN PERCENT AUTO 4 % (0-1); LYMPHOCYTES ABSOLUTE AUTO 1.82 K/mm3 (0.84-5.20); LYMPHOCYTES PERCENT AUTO 24 % (21-46); MONOCYTES ABSOLUTE AUTO 0.71 K/mm3 (0.16-1.47); MONOCYTES PERCENT AUTO 10 % (4-13); Mean Corpuscular HGB 28.1 pg (26.0-34.0); Mean Corpuscular Volume 85 fL (80-100); Mean Platelet Volume 8.2 fL (9.1-12.4); NEUTROPHILS ABSOLUTE AUTO 4.49 K/mm3 (1.96-9.15); NEUTROPHILS PERCENT AUTO 60 % (41-73); Platelet Count 275 K/mm3 (150-400); RDW Coefficient Variation 14.5 % (11.7-14.2); RDW Standard Deviation 44.7 fL (35.1-46.3); Red Blood Cell Count 3.88 M/mm3 (4.30-5.90); White Blood Cell Count 7.49 K/mm3 (4.00-11.30)
[2021-04-13 06:34] LABS: Magnesium, Blood 2.5 mg/dL (1.6-2.4)
[2021-04-13 06:50] LABS: Albumin, Blood 2.3 g/dL (3.4-5.0); Albumin/Globulin Ratio 0.4 (0.8-1.8); Bilirubin, Total 0.4 mg/dL (0.1-1.0); Bun/Creatinine Ratio 6.7 (12.0-20.0); Calcium, Blood 8.2 mg/dL (8.5-10.1); Creatinine, Blood 8.36 mg/dL (0.60-1.20); Globulin, Blood 6.5 g/dL (2.2-4.0); Phosphorus, Blood 6.2 mg/dL (2.5-4.9); Potassium, Blood 4.1 mmol/L (3.5-5.5); Total Protein, Blood 8.8 g/dL (6.4-8.2)
--- NOTE | 2021-04-13 10:00 | NUR ---
DIALYSIS PT TAKEN TO DIALYSIS VIA WHEELCHAIR A/OX3
--- NOTE | 2021-04-13 12:47 | NUR ---
PT BACK FROM DIALYSIS A/OX3, APPEARS TO BE BREATHING EASILY
--- NOTE | 2021-04-13 16:56 | NUR ---
PT IS A/OX3, PLEASANT AND COOPERATIVE, THE PT DENIES ANY PAIN , PT HAD DIALYSIS DONE TODAY AND APPEARS TO HAVE TOLERATED IT WELL, THE PT PT IS UP WITH ASSIST TO THE BATHROOM, THE PT HAD A SHOWER TODAY, PT WAS UP IN THE CHAIR T/O THE DAY, THE PTS YESICA DRAIN DRESSING WAS CHANGED, DRAIN IS TO GRAVITY ONLY PER DR. FAN NOTE, THE PT HAD A VISITOR TODAY, CALL LIGHT IN REACH, WILL CONTINUE TO MONITOR AND ASSESS FOR CHANGES
--- NOTE | 2021-04-14 05:12 | NUR ---
SHIFT SUMMARY: PT IS ALERT AND ORIENTED WITH MINOR CONFUSION. PT IS CALM AND COOPERATIVE WITH CARE. PT DOES NOT USE HIS CALL LIGHT AND WILL SET OFF HIS BED ALARM OFF AT TIMES. PT DENIES PAIN, NAUSEA, VOMITING AND SOB. PT SLEPT INTERMITTENTLY THROUGHOUT THE NIGHT. PT IS A ONE PERSON ASSIST DURING AMBULATION. NO ACUTE CHANGES OR COMPLICATIONS OVERNIGHT. BED IN LOW POSITION, CALL LIGHT WITHIN REACH. WILL REPORT TO DAY NURSE.
[2021-04-14 05:51] LABS: Hematocrit 32.2 % (37.0-53.0); Hemoglobin 10.6 g/dL (13.5-17.5)
[2021-04-14 06:08] LABS: Albumin, Blood 2.3 g/dL (3.4-5.0); Anion Gap 9 mmol/L (6-16); Blood Urea Nitrogen 39 mg/dL (8-24); Bun/Creatinine Ratio 5.5 (12.0-20.0); CO2, Blood 28 mmol/L (21-32); Calcium, Blood 8.6 mg/dL (8.5-10.1); Chloride, Blood 97 mmol/L (98-108); Creatinine, Blood 7.07 mg/dL (0.60-1.20); Glomerular Filtration Rate 8 (60-); Glucose, Blood 141 mg/dL (70-99); Magnesium, Blood 2.3 mg/dL (1.6-2.4); Phosphorus, Blood 5.8 mg/dL (2.5-4.9); Potassium, Blood 3.9 mmol/L (3.5-5.5); Sodium, Blood 134 mmol/L (136-145)
--- NOTE | 2021-04-14 13:55 | NUR ---
SHIFT SUMMARY PT IS A&O, UP WITH SBA USING FWW. PT UP TO CHAIR FOR MEALS. AMBULATED IN HALLS. ABLE TO WORK WITH PT/OT. DR NAVA AND DR VILLAFUERTE HERE TODAY TO SEE PT. PT IS UNABLE TO D/C UNTIL BCX'S COME BACK NEG. NO DIALYSIS TODAY. DECLINED LIDOCAINE PATCHES TO BACK TODAY. NO C/O. PLEASANT AND CO-OP WITH CARE. DENIES FURTHER NEEDS AT THIS TIME.
[2021-04-15 04:50] LABS: Hematocrit 31.9 % (37.0-53.0); Hemoglobin 10.3 g/dL (13.5-17.5)
--- NOTE | 2021-04-15 05:04 | NUR ---
DATABASE COORDINATOR SUMMARY NO ACUTE CHANGES THIS SHIFT. PT AAOX3 WITH SOME INTERMITTENT CONFUSION/FORGETFULNESS. CALLS APPROPRIATELY FOR THE MOST PART BUT SET OFF BED ALARM ONCE TRYING TO GET UP RIGHT AFTER WAKING AND WAS A BIT CONFUSED. GAVE PT HEATING PAD FOR BACK, DENIED NEED FOR PAIN MEDS. YESICA DRAIN WITH SMALL AMOUNT OF YELLOW BILE. PT HAS SLEPT MOST OF THE SHIFT. VSS, WILL CONTINUE TO MONITOR.
[2021-04-15 05:24] LABS: Magnesium, Blood 2.5 mg/dL (1.6-2.4)
[2021-04-15 05:38] LABS: Albumin, Blood 2.3 g/dL (3.4-5.0); Anion Gap 11 mmol/L (6-16); Blood Urea Nitrogen 44 mg/dL (8-24); Bun/Creatinine Ratio 5.2 (12.0-20.0); CO2, Blood 28 mmol/L (21-32); Calcium, Blood 8.5 mg/dL (8.5-10.1); Chloride, Blood 93 mmol/L (98-108); Creatinine, Blood 8.51 mg/dL (0.60-1.20); Glomerular Filtration Rate 7 (60-); Glucose, Blood 173 mg/dL (70-99); Phosphorus, Blood 6.8 mg/dL (2.5-4.9); Potassium, Blood 3.9 mmol/L (3.5-5.5); Sodium, Blood 132 mmol/L (136-145)
--- NOTE | 2021-04-15 13:57 | NUR ---
SHIFT SUMMARY PT REMAINS PLEASANT AND CO-OP. SBA TO [facility]THRM USING FWW. DR BRADLEY IN TO SEE PT EARLY, INFORMED PT THAT HE WOULD REMOVE YESICA DRAIN TO RUQ TOMORROW IF NO INCREASED ABD PAIN BY THEN. DIALYSIS DONE IN TODAY; PT TOLERATED WELL. DR NAVA AND GAMBLING CASHIER ALSO HERE THIS AM TO CHECK ON PT. PT MEDICATED X1 FOR C/O BACK PAIN FROM LYING IN BED DURING DIALSIS. NO FURTHER C/O. PT CONTINUES TO WAIT FOR NEG BCX'S BEFORE BEING ABLE TO D/C. CALL LT IN REACH. ABLE TO MAKE NEEDS KNOWN.
--- NOTE | 2021-04-16 04:41 | NUR ---
MAINFRAME SYSTEMS ENGINEER SUMMARY NO ACUTE CHANGES THIS SHIFT. PT AAOX3 AND PLEASANT. BED ALARM ON FOR SAFETY PT DOES NOT ALWAYS CALL FOR ASSISTANCE WHEN TRYING TO GET OUT OF BED. BILIARY DRAIN CLAMPED BY DR BRADLEY. PT DENIES PAIN. VSS, WILL CONTINUE TO MONITOR.
[2021-04-16 05:31] LABS: Hematocrit 32.9 % (37.0-53.0); Hemoglobin 10.8 g/dL (13.5-17.5)
[2021-04-16 05:51] LABS: Albumin, Blood 2.4 g/dL (3.4-5.0); Anion Gap 10 mmol/L (6-16); Blood Urea Nitrogen 27 mg/dL (8-24); Bun/Creatinine Ratio 4.2 (12.0-20.0); CO2, Blood 29 mmol/L (21-32); Calcium, Blood 8.5 mg/dL (8.5-10.1); Chloride, Blood 93 mmol/L (98-108); Creatinine, Blood 6.49 mg/dL (0.60-1.20); Glomerular Filtration Rate 9 (60-); Glucose, Blood 176 mg/dL (70-99); Magnesium, Blood 2.3 mg/dL (1.6-2.4); Potassium, Blood 3.9 mmol/L (3.5-5.5); Sodium, Blood 132 mmol/L (136-145)
--- NOTE | 2021-04-16 17:51 | NUR ---
SHIFT SUMMARY NO ACUTE CHANGES T/O SHIFT, VS STABLE, A&O, COOPERATIVE c CARE. IMPULSIVE AT TIMES, USES CALL LIGHT APPROPRIATELY FOR THE MOST PART. BED AND CHAIR ALARMS USED. DRAIN TUBING REMOVED THIS AM, DRESSING CHANGED X2 TODAY PRN. YELLOW (BILE) DRAINAGE NOTED. PT DENIES ANY PAIN T/O SHIFT. PG DRESSING AND CAPS CHANGED. NO DIALYSIS TODAY. NEGATIVE BLOOD CULTURES TODAY. PT IS CURRENTLY SITTING UP IN CHAIR, WATCHING TV AND EATING DINNER. CALL LIGHT WITHIN REACH AND CHAIR ALARM ON.
--- NOTE | 2021-04-17 04:02 | NUR ---
SHIFT SUMMARY NO ACUTE CHANGES THIS SHIFT, MEDICATED X1 FOR BACK PAIN, NO OTHER C/O ANY KIND, DRESSING CHANGE X2 THIS SHIFT ON ABD SITE, SLEPT T/O THE NIGHT & SLEEPING AT THIS TIME, CALL LIGHT IN REACH, BED ALARM ACTIVE, WILL CONT TO MONITOR UNTIL REPORT GIVEN TO DAY RN.
--- NOTE | 2021-04-17 08:45 | NUR ---
STAT LABS: NOTIFIED DR. MESA OF STAT LAB RESULTS PER ORDER. NO NEW ORDERS AT THIS TIME.
[2021-04-17] MEDS ORDERED: AMLO5 PO (15:51)
[2021-04-17] MEDS ORDERED: VISBIOME 112.51 EACH PO (15:52)
[2021-04-17] MEDS ORDERED: CEFAZOLIN IV (15:53)
--- NOTE | 2021-04-17 15:55 | NUR ---
ORDERS AND DR VILLAFUERTE PROGRESS NOTES FAXED TO [facility]. PER DIRECTOR OF ARCHITECTURE SAGE SHE SPOKE WITH [facility] AND PT HAS DIALYSIS TOMORROW AT [facility] WITH ANTIBIOTICS AFTER. RX FAXED TO [facility]. F/U SCHEDULED WITH PCP AND DR ROBERTS OFFICE WILL CALL TO SCHEDULE A FOLLOW UP APPOINTMENT. WILL CALL AND SCHEDULE [facility] TRANSPORT HOME.
--- NOTE | 2021-04-17 16:41 | NUR ---
VERIFIED WITH RN AT [facility], ORDERS RECEIVED AND PT TO BE AT DIALYSIS TOMORROW AT 1000 WITH IV ANTIBIOTICS AFTER.
--- NOTE | 2021-04-17 19:11 | NUR ---
DISCHARGE SUMMARY: PATIENT OKAY TO DISCHARGE PER CARE TIME. PATIENT DENIED ABDOMINAL PAIN THROUGHOUT SHIFT. PATIENT DENIED NAUSEA OR DIFFICULTY EATING. PATIENT TOLERATED DIALYSIS WELL. DRESSING CHANGED AND DRESSING INSTRUCTIONS PROVIDED. PATIENT VERBALIZED UNDERSTANDING. DISCHARGE INSTRUCTIONS AND EDUCATION PROVIDED TO THE PATIENT. ALL QUESTIONS AND CONCERNS ADDRESSED. PER APPROVAL FROM FINAL INSPECTION SUPERVISOR, PATIENT RECEIVED CATIE RIDE TO HIS HOME. RIDE SET UP WITH [employer]. PATIENT DISCHARGED WITH INFORMATION CODER AT ABOUT 17:30. PATIENT STABLE AT TIME OF DISCHARGE. PATIENT REPORTED MISSING SLIPPERS AND SHIRT. CHECKED IN LOST AND FOUND ON THIRD FLOOR. CHECKED WITH PCU HE WAS THERE PRIOR TO CURRENT ROOM. UNABLE TO LOCATE BELONGINGS. ENCOURAGED PATIENT TO FOLLOW UP [facility].
== END 2021-04-17 17:18 | disposition home health service (06) | DRG 871 ==
LOC: ER 04:42 → PCU 06:40 → MEDS 06:40 → PCU 07:20 → MEDS 04-08 14:56
PROVIDERS: Family Medicine; Internal Medicine; Internal Medicine Cardiovascular Disease; Internal Medicine Nephrology; Nurse Practitioner Acute Care; Pharmacist; Student in an Organized Health Care Education/Training Program; ADMIT Internal Medicine
PROC: 5A1D70Z Performance of Urinary Filtration, Intermittent, Less than 6 Hours Per Day (ICD-10-PCS; principal; 2021-04-05)
DX: A41.01 Sepsis due to Methicillin susceptible Staphylococcus aureus (principal); N18.6 End stage renal disease; G92 Toxic encephalopathy; I33.0 Acute and subacute infective endocarditis; E87.1 Hypo-osmolality and hyponatremia; N25.81 Secondary hyperparathyroidism of renal origin; I13.2 Hypertensive heart and chronic kidney disease with heart failure and with stage 5 chronic kidney disease, or end stage renal disease; T85.520A Displacement of bile duct prosthesis, initial encounter; K91.89 Other postprocedural complications and disorders of digestive system; Z68.41 Body mass index [BMI] 40.0-44.9, adult; E11.42 Type 2 diabetes mellitus with diabetic polyneuropathy; S00.01XA Abrasion of scalp, initial encounter; W18.30XA Fall on same level, unspecified, initial encounter; Z20.822 Contact with and (suspected) exposure to COVID-19; E11.22 Type 2 diabetes mellitus with diabetic chronic kidney disease; E78.5 Hyperlipidemia, unspecified; E11.65 Type 2 diabetes mellitus with hyperglycemia; F32.9 Major depressive disorder, single episode, unspecified; I50.9 Heart failure, unspecified; D63.1 Anemia in chronic kidney disease; I25.10 Atherosclerotic heart disease of native coronary artery without angina pectoris; G47.33 Obstructive sleep apnea (adult) (pediatric); K59.00 Constipation, unspecified; G89.29 Other chronic pain; M54.9 Dorsalgia, unspecified; E66.01 Morbid (severe) obesity due to excess calories; E83.41 Hypermagnesemia; K21.9 Gastro-esophageal reflux disease without esophagitis; K22.70 Barrett's esophagus without dysplasia; Z60.2 Problems related to living alone; Z88.1 Allergy status to other antibiotic agents; Z99.2 Dependence on renal dialysis; Z88.6 Allergy status to analgesic agent; I25.2 Old myocardial infarction; Z89.021 Acquired absence of right finger(s); Z98.890 Other specified postprocedural states; Z90.49 Acquired absence of other specified parts of digestive tract; Z98.818 Other dental procedure status; Z79.02 Long term (current) use of antithrombotics/antiplatelets; Z79.84 Long term (current) use of oral hypoglycemic drugs; Z79.899 Other long term (current) drug therapy; Z95.828 Presence of other vascular implants and grafts
CPT/HCPCS: 36415; 51701; 51702; 70450; 71045; 74177; 76376; 78226; 80053; 80069; 80202; 81001; 82550; 82947; 83036; 83605; 83690; 83735; 84100; 84132; 85014; 85018; 85025; 85651; 86140; 87040; 87077; 87147; 87186; 93005; 93010; 93306; 93312; 93325; 96374-59; 96375-59; 97110; 97116; 97161; 97166; 97530; 97535; 99152; 99285-25; A9270; A9537; C1751; J0690; J1644; J1815; J2250; J2405; J2543; J2700; J3010; J3370; J7030; J7050; J7120; Q9967; U0004

== ENCOUNTER 2021-04-18 16:00 | Emergency (ER) | payer OTHER ==
[~2021-04-18] VITALS: Ht 175.3 cm; Wt 115.7 kg
[~2021-04-18 16:00] MED LIST changes: -HYDR1TAB94 PO; -ONDA4ODT SL
[2021-04-18 16:52] LABS: BASOPHILS ABSOLUTE AUTO 0.05 K/mm3 (0.00-0.23); BASOPHILS PERCENT AUTO 1 % (0-2); EOSINOPHILS ABSOLUTE AUTO 0.09 K/mm3 (0.00-0.68); EOSINOPHILS PERCENT AUTO 1 % (0-6); Hematocrit 34.3 % (37.0-53.0); IMMATURE GRAN ABSOLUTE AUTO 0.08 K/mm3 (0.00-0.10); IMMATURE GRAN PERCENT AUTO 1 % (0-1); LYMPHOCYTES ABSOLUTE AUTO 3.37 K/mm3 (0.84-5.20); LYMPHOCYTES PERCENT AUTO 31 % (21-46); MONOCYTES ABSOLUTE AUTO 0.88 K/mm3 (0.16-1.47); MONOCYTES PERCENT AUTO 8 % (4-13); Mean Corpuscular HGB 28.1 pg (26.0-34.0); Mean Corpuscular HGB Conc 32.1 g/dL (31.5-36.5); Mean Corpuscular Volume 88 fL (80-100); Mean Platelet Volume 8.5 fL (9.1-12.4); NEUTROPHILS ABSOLUTE AUTO 6.33 K/mm3 (1.96-9.15); NEUTROPHILS PERCENT AUTO 59 % (41-73); Platelet Count 381 K/mm3 (150-400); RDW Coefficient Variation 14.5 % (11.7-14.2); RDW Standard Deviation 46.8 fL (35.1-46.3); Red Blood Cell Count 3.91 M/mm3 (4.30-5.90)
[2021-04-18 17:17] LABS: Albumin, Blood 2.4 g/dL (3.4-5.0); Albumin/Globulin Ratio 0.3 (0.8-1.8); Bilirubin, Total 0.4 mg/dL (0.1-1.0); Calcium, Blood 8.7 mg/dL (8.5-10.1); Creatinine, Blood 3.63 mg/dL (0.60-1.20); Globulin, Blood 7.3 g/dL (2.2-4.0); Potassium, Blood 3.5 mmol/L (3.5-5.5); Total Protein, Blood 9.7 g/dL (6.4-8.2)
== END 2021-04-18 19:31 | disposition home or self-care (01) ==
LOC: ER 16:00
PROVIDERS: Physician Assistant
DX: S09.90XA Unspecified injury of head, initial encounter (principal); Z48.01 Encounter for change or removal of surgical wound dressing; Z90.49 Acquired absence of other specified parts of digestive tract; E11.40 Type 2 diabetes mellitus with diabetic neuropathy, unspecified; I10 Essential (primary) hypertension; K21.9 Gastro-esophageal reflux disease without esophagitis; Z88.1 Allergy status to other antibiotic agents; Z88.6 Allergy status to analgesic agent; Z79.899 Other long term (current) drug therapy; Z79.02 Long term (current) use of antithrombotics/antiplatelets; W18.30XA Fall on same level, unspecified, initial encounter
CPT/HCPCS: 36415; 70450; 72125; 74176; 80053; 83690; 85025; 99284-25; A9270; L0160

== ENCOUNTER → 2021-04-18 | Outpatient (CLI) | payer OTHER ==
[~2021-04-18] MED LIST changes: +CEFAZOLIN IV; +HYDR1TAB94 PO; +ONDA4ODT SL; +PANT40 PO; +Ropinirole HCl0.5 MG PO; +TEMA30 PO; +VISBIOME 112.51 EACH PO
[2021-04-18 11:47] LABS: Albumin, Blood 2.5 g/dL (3.4-5.0); Albumin/Globulin Ratio 0.4 (0.8-1.8); Bilirubin, Direct 0.1 mg/dL (0.0-0.3); Bilirubin, Indirect 0.3 mg/dL (0.1-0.7); Bilirubin, Total 0.4 mg/dL (0.1-1.0); Globulin, Blood 7.1 g/dL (2.2-4.0); Total Protein, Blood 9.6 g/dL (6.4-8.2)
== END | disposition home or self-care (01) ==
LOC: LAB SHORT 10:55 → LAB DAV 10:55
PROVIDERS: Internal Medicine Nephrology
DX: R10.9 Unspecified abdominal pain (principal)
CPT/HCPCS: 80076; 82150; 83690

== ENCOUNTER 2021-04-19 11:45 | Emergency (ER) | payer OTHER ==
[~2021-04-19] VITALS: Ht 175.3 cm; Wt 115.7 kg
[2021-04-19 12:34] LABS: BASOPHILS ABSOLUTE AUTO 0.07 K/mm3 (0.00-0.23); BASOPHILS PERCENT AUTO 1 % (0-2); EOSINOPHILS ABSOLUTE AUTO 0.09 K/mm3 (0.00-0.68); EOSINOPHILS PERCENT AUTO 1 % (0-6); Hematocrit 36.7 % (37.0-53.0); Hemoglobin 11.6 g/dL (13.5-17.5); IMMATURE GRAN ABSOLUTE AUTO 0.05 K/mm3 (0.00-0.10); IMMATURE GRAN PERCENT AUTO 1 % (0-1); LYMPHOCYTES ABSOLUTE AUTO 2.45 K/mm3 (0.84-5.20); LYMPHOCYTES PERCENT AUTO 28 % (21-46); MONOCYTES ABSOLUTE AUTO 0.91 K/mm3 (0.16-1.47); MONOCYTES PERCENT AUTO 10 % (4-13); Mean Corpuscular HGB 28.3 pg (26.0-34.0); Mean Corpuscular HGB Conc 31.6 g/dL (31.5-36.5); Mean Corpuscular Volume 90 fL (80-100); Mean Platelet Volume 8.3 fL (9.1-12.4); NEUTROPHILS PERCENT AUTO 60 % (41-73); Platelet Count 341 K/mm3 (150-400); RDW Coefficient Variation 14.3 % (11.7-14.2); RDW Standard Deviation 46.6 fL (35.1-46.3); White Blood Cell Count 8.87 K/mm3 (4.00-11.30)
[2021-04-19 12:56] LABS: Alanine Aminotransfer (ALT/SGP <6 U/L (12-78); Albumin, Blood 2.5 g/dL (3.4-5.0); Albumin/Globulin Ratio 0.3 (0.8-1.8); Alk Phos 104 U/L (50-136); Anion Gap 9 mmol/L (6-16); Aspartate Aminotrans (AST/SGOT 34 U/L (12-37); Bilirubin, Total 0.6 mg/dL (0.1-1.0); Blood Urea Nitrogen 19 mg/dL (8-24); Bun/Creatinine Ratio 3.2 (12.0-20.0); CO2, Blood 29 mmol/L (21-32); Calcium, Blood 8.8 mg/dL (8.5-10.1); Chloride, Blood 94 mmol/L (98-108); Creatinine, Blood 5.92 mg/dL (0.60-1.20); Globulin, Blood 7.4 g/dL (2.2-4.0); Glomerular Filtration Rate 10 (60-); Glucose, Blood 193 mg/dL (70-99); Potassium, Blood 4.3 mmol/L (3.5-5.5); Sodium, Blood 132 mmol/L (136-145); Total Protein, Blood 9.9 g/dL (6.4-8.2)
== END 2021-04-19 14:19 | disposition home or self-care (01) ==
LOC: ER 11:45
PROVIDERS: Emergency Medicine
DX: L76.82 Other postprocedural complications of skin and subcutaneous tissue (principal); E11.40 Type 2 diabetes mellitus with diabetic neuropathy, unspecified; I10 Essential (primary) hypertension; Y84.8 Other medical procedures as the cause of abnormal reaction of the patient, or of later complication, without mention of misadventure at the time of the procedure; Z88.1 Allergy status to other antibiotic agents; Z88.6 Allergy status to analgesic agent; Z79.02 Long term (current) use of antithrombotics/antiplatelets; Z79.899 Other long term (current) drug therapy
CPT/HCPCS: 36415; 80053; 85025; 99283

== ENCOUNTER 2021-05-09 10:11 | Emergency (ER) | payer OTHER ==
[~2021-05-09] VITALS: Ht 175.3 cm; Wt 115.7 kg
[2021-05-09] MEDS ORDERED: ONDA4ODT SL (11:02)
[2021-05-09] MEDS ORDERED: HYDR1TAB94 PO (11:02)
== END 2021-05-09 11:21 | disposition home or self-care (01) ==
LOC: ER 10:11
DX: M54.5 Low back pain (principal); Z79.4 Long term (current) use of insulin; Z88.6 Allergy status to analgesic agent; Z88.1 Allergy status to other antibiotic agents; Z79.899 Other long term (current) drug therapy
CPT/HCPCS: 99283; A9270

== ENCOUNTER 2021-05-22 14:45 | Emergency (ER) | payer OTHER ==
[~2021-05-22] VITALS: Ht 175.3 cm; Wt 123.8 kg
[~2021-05-22 14:45] MED LIST changes: +HYDR1TAB94 PO; +ONDA4ODT SL
[2021-05-22 15:38] LABS: BASOPHILS ABSOLUTE AUTO 0.04 K/mm3 (0.00-0.23); BASOPHILS PERCENT AUTO 1 % (0-2); EOSINOPHILS ABSOLUTE AUTO 0.11 K/mm3 (0.00-0.68); EOSINOPHILS PERCENT AUTO 1 % (0-6); Hematocrit 34.3 % (37.0-53.0); Hemoglobin 10.7 g/dL (13.5-17.5); IMMATURE GRAN ABSOLUTE AUTO 0.02 K/mm3 (0.00-0.10); IMMATURE GRAN PERCENT AUTO 0 % (0-1); LYMPHOCYTES ABSOLUTE AUTO 1.59 K/mm3 (0.84-5.20); LYMPHOCYTES PERCENT AUTO 21 % (21-46); MONOCYTES PERCENT AUTO 9 % (4-13); Mean Corpuscular HGB 27.5 pg (26.0-34.0); Mean Corpuscular HGB Conc 31.2 g/dL (31.5-36.5); Mean Corpuscular Volume 88 fL (80-100); Mean Platelet Volume 8.4 fL (9.1-12.4); NEUTROPHILS ABSOLUTE AUTO 5.31 K/mm3 (1.96-9.15); NEUTROPHILS PERCENT AUTO 68 % (41-73); Platelet Count 298 K/mm3 (150-400); RDW Coefficient Variation 14.6 % (11.7-14.2); RDW Standard Deviation 46.8 fL (35.1-46.3); Red Blood Cell Count 3.89 M/mm3 (4.30-5.90); White Blood Cell Count 7.77 K/mm3 (4.00-11.30)
[2021-05-22 15:53] LABS: Albumin, Blood 2.9 g/dL (3.4-5.0); Albumin/Globulin Ratio 0.5 (0.8-1.8); Bilirubin, Total 0.7 mg/dL (0.1-1.0); Bun/Creatinine Ratio 3.1 (12.0-20.0); Calcium, Blood 8.9 mg/dL (8.5-10.1); Creatinine, Blood 6.41 mg/dL (0.60-1.20); Globulin, Blood 5.6 g/dL (2.2-4.0); Potassium, Blood 4.1 mmol/L (3.5-5.5); Total Protein, Blood 8.5 g/dL (6.4-8.2)
== END 2021-05-22 18:22 | disposition home or self-care (01) ==
LOC: ER 14:45
PROVIDERS: Physician Assistant
DX: R10.11 Right upper quadrant pain (principal); E11.40 Type 2 diabetes mellitus with diabetic neuropathy, unspecified; I10 Essential (primary) hypertension; E78.5 Hyperlipidemia, unspecified; K21.9 Gastro-esophageal reflux disease without esophagitis; Z88.6 Allergy status to analgesic agent; Z88.1 Allergy status to other antibiotic agents; Z79.899 Other long term (current) drug therapy; Z79.4 Long term (current) use of insulin; Z79.02 Long term (current) use of antithrombotics/antiplatelets
CPT/HCPCS: 36415; 74177; 80053; 83690; 85025; 99284-25; A9270; Q9967

== ENCOUNTER → 2021-06-11 | Outpatient (CLI) | payer OTHER, MEDICARE ==
[~2021-06-11] MED LIST changes: +CYCLOBENZAPRINE5 MG PO
== END | disposition home or self-care (01) ==
LOC: LAB 11:51 → LAB SHORT 11:51
DX: A41.01 Sepsis due to Methicillin susceptible Staphylococcus aureus (principal); M48.50XD Collapsed vertebra, not elsewhere classified, site unspecified, subsequent encounter for fracture with routine healing
CPT/HCPCS: 85651; 86140; 87040

== ENCOUNTER 2021-06-19 21:09 | Inpatient (IN) | payer OTHER ==
[~2021-06-19] VITALS: Ht 175.3 cm; Wt 117.4 kg
[~2021-06-19 21:09] MED LIST changes: -BASAGLAR K100 UNIT/1 SC; -CYCLOBENZAPRINE5 MG PO; +INSULANPEN SC
[2021-06-19 21:41] LABS: BASOPHILS ABSOLUTE AUTO 0.05 K/mm3 (0.00-0.23); BASOPHILS PERCENT AUTO 1 % (0-2); EOSINOPHILS ABSOLUTE AUTO 0.19 K/mm3 (0.00-0.68); EOSINOPHILS PERCENT AUTO 3 % (0-6); Hematocrit 31.1 % (37.0-53.0); Hemoglobin 9.9 g/dL (13.5-17.5); IMMATURE GRAN ABSOLUTE AUTO 0.04 K/mm3 (0.00-0.10); IMMATURE GRAN PERCENT AUTO 1 % (0-1); LYMPHOCYTES ABSOLUTE AUTO 1.91 K/mm3 (0.84-5.20); LYMPHOCYTES PERCENT AUTO 25 % (21-46); MONOCYTES ABSOLUTE AUTO 0.78 K/mm3 (0.16-1.47); MONOCYTES PERCENT AUTO 10 % (4-13); Mean Corpuscular HGB 26.8 pg (26.0-34.0); Mean Corpuscular HGB Conc 31.8 g/dL (31.5-36.5); Mean Corpuscular Volume 84 fL (80-100); Mean Platelet Volume 8.2 fL (9.1-12.4); NEUTROPHILS ABSOLUTE AUTO 4.72 K/mm3 (1.96-9.15); NEUTROPHILS PERCENT AUTO 61 % (41-73); Platelet Count 354 K/mm3 (150-400); RDW Coefficient Variation 13.4 % (11.7-14.2); RDW Standard Deviation 41.3 fL (35.1-46.3); Red Blood Cell Count 3.69 M/mm3 (4.30-5.90); White Blood Cell Count 7.69 K/mm3 (4.00-11.30)
[2021-06-19 21:59] LABS: Albumin, Blood 2.9 g/dL (3.4-5.0); Albumin/Globulin Ratio 0.6 (0.8-1.8); Bilirubin, Total 0.5 mg/dL (0.1-1.0); Bun/Creatinine Ratio 3.4 (12.0-20.0); Calcium, Blood 9.2 mg/dL (8.5-10.1); Creatinine, Blood 5.57 mg/dL (0.60-1.20); Globulin, Blood 5.1 g/dL (2.2-4.0)
[2021-06-20 09:16] LABS: SARS-Cov-2 (COVID-19) PCR, MMC NEGATIVE (NEGATIVE)
[2021-06-21] MEDS ORDERED: CYCLOBENZAPRINE5 MG PO (06:38)
[2021-06-21 07:17] LABS: BASOPHILS ABSOLUTE AUTO 0.05 K/mm3 (0.00-0.23); BASOPHILS PERCENT AUTO 1 % (0-2); EOSINOPHILS ABSOLUTE AUTO 0.22 K/mm3 (0.00-0.68); EOSINOPHILS PERCENT AUTO 3 % (0-6); Hematocrit 30.2 % (37.0-53.0); Hemoglobin 9.7 g/dL (13.5-17.5); IMMATURE GRAN ABSOLUTE AUTO 0.02 K/mm3 (0.00-0.10); IMMATURE GRAN PERCENT AUTO 0 % (0-1); LYMPHOCYTES ABSOLUTE AUTO 2.06 K/mm3 (0.84-5.20); LYMPHOCYTES PERCENT AUTO 31 % (21-46); MONOCYTES ABSOLUTE AUTO 0.54 K/mm3 (0.16-1.47); MONOCYTES PERCENT AUTO 8 % (4-13); Mean Corpuscular HGB 27.5 pg (26.0-34.0); Mean Corpuscular HGB Conc 32.1 g/dL (31.5-36.5); Mean Corpuscular Volume 86 fL (80-100); Mean Platelet Volume 8.3 fL (9.1-12.4); NEUTROPHILS PERCENT AUTO 57 % (41-73); Platelet Count 328 K/mm3 (150-400); RDW Coefficient Variation 13.4 % (11.7-14.2); RDW Standard Deviation 41.9 fL (35.1-46.3); Red Blood Cell Count 3.53 M/mm3 (4.30-5.90); White Blood Cell Count 6.69 K/mm3 (4.00-11.30)
[2021-06-21 07:34] LABS: Albumin, Blood 2.7 g/dL (3.4-5.0); Albumin/Globulin Ratio 0.5 (0.8-1.8); Bilirubin, Total 0.5 mg/dL (0.1-1.0); Bun/Creatinine Ratio 3.8 (12.0-20.0); Calcium, Blood 8.7 mg/dL (8.5-10.1); Creatinine, Blood 7.02 mg/dL (0.60-1.20); Globulin, Blood 5.3 g/dL (2.2-4.0); Potassium, Blood 2.6 mmol/L (3.5-5.5)
[2021-06-21 10:02] LABS: Magnesium, Blood 1.8 mg/dL (1.6-2.4)
[2021-06-21 13:10] LABS: Potassium, Blood 3.4 mmol/L (3.5-5.5); Vancomycin, Random 15.2 ug/mL
--- NOTE | 2021-06-21 19:17 | NUR ---
PT IS A/OX4, PLEASANT AND COOPERATIVE, THE PT IS UP WITH ASSIST TO THE BATHROOM OR BSC. PT APPEARS TO BE BREATHING EASILY ON RA. PT HAD DIALYSIS TODAY AND APPEARS TO HAVE TOLERATED IT WELL. PT WAS MEDICATED FOR BACK PAIN T/O THE DAY. CALL LIGHT IN REACH. WILL CONTINUE TO MONITOR AND ASSESS FOR CHANGES
--- NOTE | 2021-06-22 07:00 | NUR ---
SHIFT SUMMARY PT IS A 66 Y/O MALE, ADMITTED FOR OSTEOMYELITIS. HE IS A&O X 4, SBA TO [facility]. PT REPORTED PAIN IN HIS TAILBONE/LOWER BACK WITH ANY MOVEMENT. NO C/O NAUSEA OR SOB. VITAL SIGNS STABLE. TELE SHOWED NSR IN THE 70S. NO ACUTE CHANGES IN PT CONDITION NOTED DURING THE NIGHT. WILL CONTINUE TO MONITOR AND TREAT PER EMAR UNTIL HAND OFF TO DAY SHIFT RN.
[2021-06-22 08:47] LABS: Bun/Creatinine Ratio 3.7 (12.0-20.0); Calcium, Blood 8.4 mg/dL (8.5-10.1); Creatinine, Blood 5.95 mg/dL (0.60-1.20); Potassium, Blood 3.4 mmol/L (3.5-5.5)
--- NOTE | 2021-06-22 15:49 | NUR ---
echocardiogram complete
--- NOTE | 2021-06-22 18:15 | NUR ---
PT IS A/OX4, PLEASANT AND COOPERATIVE. THE PT IS UP WITH ASSIST TO THE BSC. THE PT HAS BEEN IN BED FOR MOST OF THE DAY OTHERWISE. THE PT WORKED WITH THE PHYSICAL THERAPIST TODAY. PT WAS MEDICATED FOR PAIN X1 SO FAR TODAY. THE PT APPEARS TO BE BREATHING EASILY ON RA AT THIS TIME. CALL LIGHT IN REACH, WILL CONTINUE TO MONITOR AND ASSESS FOR CHANGES
--- NOTE | 2021-06-23 07:07 | NUR ---
SHIFT SUMMARY PT IS A 66 Y/O MALE, ADMITTED FOR OSTEOMYELITIS. HE IS A&O X 4, SBA TO THE [facility]. PT DID REPORT LOWER BACK PAIN WITH MOVEMENT. NO C/O NAUSEA OR SOB. VITAL SIGNS STABLE. NO ACUTE CHANGES IN PT CONDITION NOTED DURING THE NIGHT. WILL CONTINUE TO MONITOR AND TREAT PER EMAR UNTIL HAND OFF TO DAY SHIFT RN.
[2021-06-23 07:27] LABS: Albumin, Blood 2.4 g/dL (3.4-5.0); Anion Gap 4 mmol/L (6-16); Blood Urea Nitrogen 27 mg/dL (8-24); Bun/Creatinine Ratio 4.1 (12.0-20.0); CO2, Blood 33 mmol/L (21-32); Calcium, Blood 8.7 mg/dL (8.5-10.1); Chloride, Blood 101 mmol/L (98-108); Glomerular Filtration Rate 9 (60-); Glucose, Blood 121 mg/dL (70-99); Magnesium, Blood 1.9 mg/dL (1.6-2.4); Potassium, Blood 3.7 mmol/L (3.5-5.5); Sodium, Blood 138 mmol/L (136-145)
[2021-06-23 07:29] LABS: Hematocrit 28.9 % (37.0-53.0)
--- NOTE | 2021-06-23 18:22 | NUR ---
SHIFT SUMMARY. DAILYSIS COMPLETED THIS AM, DR. VILLAFUERTE IN TO SEE PT THIS AFTERNOON. NO OTHER CHANGES OR CONCERNS.
[2021-06-24 06:14] LABS: BASOPHILS ABSOLUTE AUTO 0.03 K/mm3 (0.00-0.23); BASOPHILS PERCENT AUTO 1 % (0-2); EOSINOPHILS ABSOLUTE AUTO 0.26 K/mm3 (0.00-0.68); EOSINOPHILS PERCENT AUTO 5 % (0-6); Hematocrit 28.5 % (37.0-53.0); IMMATURE GRAN ABSOLUTE AUTO 0.03 K/mm3 (0.00-0.10); IMMATURE GRAN PERCENT AUTO 1 % (0-1); LYMPHOCYTES ABSOLUTE AUTO 1.76 K/mm3 (0.84-5.20); LYMPHOCYTES PERCENT AUTO 32 % (21-46); MONOCYTES ABSOLUTE AUTO 0.54 K/mm3 (0.16-1.47); MONOCYTES PERCENT AUTO 10 % (4-13); Mean Corpuscular HGB 27.1 pg (26.0-34.0); Mean Corpuscular HGB Conc 31.6 g/dL (31.5-36.5); Mean Corpuscular Volume 86 fL (80-100); Mean Platelet Volume 8.5 fL (9.1-12.4); NEUTROPHILS ABSOLUTE AUTO 2.92 K/mm3 (1.96-9.15); NEUTROPHILS PERCENT AUTO 53 % (41-73); Platelet Count 264 K/mm3 (150-400); RDW Coefficient Variation 13.4 % (11.7-14.2); RDW Standard Deviation 42.2 fL (35.1-46.3); Red Blood Cell Count 3.32 M/mm3 (4.30-5.90); White Blood Cell Count 5.54 K/mm3 (4.00-11.30)
[2021-06-24 06:41] LABS: Albumin, Blood 2.5 g/dL (3.4-5.0); Anion Gap 4 mmol/L (6-16); Blood Urea Nitrogen 21 mg/dL (8-24); Bun/Creatinine Ratio 3.5 (12.0-20.0); CO2, Blood 33 mmol/L (21-32); Calcium, Blood 8.6 mg/dL (8.5-10.1); Chloride, Blood 100 mmol/L (98-108); Creatinine, Blood 5.96 mg/dL (0.60-1.20); Glomerular Filtration Rate 10 (60-); Glucose, Blood 128 mg/dL (70-99); Magnesium, Blood 1.8 mg/dL (1.6-2.4); Phosphorus, Blood 2.8 mg/dL (2.5-4.9); Potassium, Blood 3.4 mmol/L (3.5-5.5); Sodium, Blood 137 mmol/L (136-145)
[2021-06-25 07:18] LABS: Bun/Creatinine Ratio 3.8 (12.0-20.0); Calcium, Blood 8.6 mg/dL (8.5-10.1); Creatinine, Blood 7.03 mg/dL (0.60-1.20); Potassium, Blood 3.7 mmol/L (3.5-5.5)
--- NOTE | 2021-06-25 16:22 | NUR ---
PATIENT TRANSFERED TO ROOM 406, REPORT CALLED TO MANUEL ROTHMAN.
--- NOTE | 2021-06-25 16:25 | NUR ---
POWER GLIDE IN RIGHT UPPER ARM, FLUSHES WELL, DRESSING CHANGED
--- NOTE | 2021-06-25 16:26 | NUR ---
PT ARRIVED TO ROOM 406 VIA BED, TRANSFERED OVER WAS TOLERATED WELL AND MINIMAL ASSISTANCE NEEDED. PT ALERT AND ORIENTED. VSS STABLE. FULL ASSESSEMENT DONE. NO PAIN AT THIS TIME. PT ORIENTED TO ROOM AND STAFF, CALL LIGHT WITH IN REACH.
[2021-06-25 22:27] LABS: Source, Urine Clean Catch
[2021-06-25 22:31] LABS: Bilirubin, Urine Neg (Neg); Blood, Urine 3+ (Neg); Glucose Qualitative, Urine Neg (Neg); Ketones, Urine Neg (Neg); Leukocyte Esterase, Urine Neg (Neg); Nitrite, Urine Neg (Neg); Protein, Urine 3+ (Neg); Urobilinogen, Urine NORM (Normal)
--- NOTE | 2021-06-25 22:35 | NUR ---
PT READY FOR BED PT WAS ABLE TO VOID INTO A URINAL AT BEDSIDE 200ML OF CLEAR YELLOW URINE. PT TOLERATED PO MEDICATIONS ORDERED. WARM BLANKET PROVIDED AND RN ASSISTED PT TO REPOSITION. RN OFFERRED TOOTH BRUSH, WASH CLOTH FOR BEDTIME ROUTINE. BEVERAGE AT BEDSIDE. CALL LIGHT IN REACH. BED IS IN THE LOWEST, LOCKED POSITION.
[2021-06-25 22:43] LABS: Appearance, Urine Clear (Clear); Color, Urine Yellow (P-Yellow)
[2021-06-25 22:44] LABS: Amorphous Light (0-Heavy); Bacteria Few /hpf; Red Blood Cells, Urine 0-2 /hpf (0-2); Squamous Epithelial Cells Not Seen /hpf (Few)
--- NOTE | 2021-06-26 02:43 | NUR ---
PT APPEARS TO BE SLEEPING PT IS RESTING IN BED WITH EYES CLOSED. PT HAS WARM BLANKETS AND PILLOWS FOR COMFORT. CALL LIGHT IN REACH. BED IS IN THE LOWEST, LOCKED POSITION. NO NEEDS AT THIS TIME.
--- NOTE | 2021-06-26 03:58 | NUR ---
PT ATTEMPED TO USE THE URINAL; UNABLE TO URINATE. RN BROUGHT IN A BEDSIDE COMMODE. PT UNABLE TO URINATE OR HAVE A BOWEL MOVEMENT AT THIS TIME. PT STATED HE WANTED TO JUST "GO BACK TO BED." RN ASSISTED PT TO BED AND PROVIDED BLANKETS AND PILLOWS. CALL LIGHT IN REACH.
--- NOTE | 2021-06-26 04:48 | NUR ---
PT IS SLEEPING AT THIS TIME. WHEN PT WAKES UP, RN WILL ENCOURAGE VOIDING. CALL LIGHT IN REACH. PT APPEARS COMFORTABLE.
--- NOTE | 2021-06-26 06:15 | NUR ---
END OF SHIFT SUMMARY PT SLEPT ON AND OFF THROUGHOUT THE NIGHT. PT WAS JUST TAKEN TO THE RESTROOM IN THE WHEELCHAIR. PT WAS UNABLE TO VOID AT THIS TIME. PT STATES HE DOES NOT FEEL THOUGH HE NEEDS TO URINATE AT THIS TIME. RN ENCOURAGED THAT HE SIP ON HIS WATER AT BEDSIDE. PT DENIES PAIN AND NAUSEA AND STATES "I JUST WANT TO GET A LITTLE MORE REST. WHILE PT WAS IN RESTROOM, BEDDING WAS CHANGED AND SURFACES WIPED OFF. PT RETURNED TO ROOM AND RN ASSISTED PT TO GET COMFORTABLE IN BED. PT REQUESTS TO NOT WEAR A GOWN AT THIS TIME. CALL LIGHT IS IN REACH. BED IS IN LOWEST, LOCKED POSITION.
--- NOTE | 2021-06-26 11:57 | NUR ---
RECEIVED REPORT FROM MANUEL POWER FROM [employer] COMPUTER CONSULTANT. PT RESTING IN BED AT BEGINNING OF SHIFT. ORDERED NEW MEDICATION FOR BP CONTROL. PT/OT SCHEDULED TO WORK WITH PT TODAY. PT TOLERATED WORKING WITH LUPISPT BEFORE LUNCH. PT GIVEN TYLENOL THIS AM FOR HEADACHE 2/10 WITH RELIEF. IV DRESSING CHANGED D/T IV NOT FLUSHING. IV FLUSHES WELL AFTER DRESSING CHANGE. PT INFORMED THIS RN THAT HE HAS COMPLETED PAPERWORK REQUIRED BY CASE MANAGEMENT NECESSARY FOR INSURANCE PURPOSES. PT CALLS APPROPRIATELY FOR ASSISTANCE. WILL CONTINUE TO MONITOR FOR CHANGES.
--- NOTE | 2021-06-26 12:22 | NUR ---
REPORT GIVEN TO MANUEL KELLY FOR CONTINUATION OF CARE.
--- NOTE | 2021-06-26 23:19 | NUR ---
PT COMFORTABLY SLEEPING, NO NEEDS AT THIS TIME.
--- NOTE | 2021-06-27 00:04 | NUR ---
PT REQUESTING HELP PUTTING THE ICE PACK BACK UNDER HIM, RN FILLED BUCKET WITH ICE. PT DENIES ANY OTHER NEEDS AT THIS TIME, RESTING COMFORTABLY IN BED.
--- NOTE | 2021-06-27 02:11 | NUR ---
RN ASSUMING CARE RN TOOK REPORT ON THIS PT AT 0200. PT IS RESTING IN BED AND APPEARS TO BE SLEEPING. POLAR UNIT IS RUNNING FOR COMFORT. PO FLUIDS AT BEDSIDE. CALL LIGHT IN REACH. BED IS IN THE LOWEST, LOCKED POSITION.
--- NOTE | 2021-06-27 06:05 | NUR ---
PT SLEPT THROUGH THE NIGHT. VSS. PT STATED HE FEELS THOUGH HE SLEPT WELL. 0600 MEDICATIONS DONE. POWER GLIDE FLUSHED WITH 10ML NORMAL SALINE. PT WOKE AT 0500 AND WAS WATCHING TV. PT JUST ASKED TO HAVE THE LIGHTS DIMMED SO HE CAN SLEEP A LITTLE MORE. CALL LIGHT IS IN REACH. BED IS IN THE LOWEST, LOCKED POSITION.
--- NOTE | 2021-06-27 07:05 | NUR ---
ASSUMED CARE FOR PT AT 0700. PLAN TO D/C TO [facility] WHEN AVAILABLE FOR IV ABX. WILL CONTINUE TO MONITOR FOR CHANGES.
[2021-06-27 10:51] LABS: Albumin, Blood 2.7 g/dL (3.4-5.0); Anion Gap 8 mmol/L (6-16); Blood Urea Nitrogen 19 mg/dL (8-24); Bun/Creatinine Ratio 4.1 (12.0-20.0); CO2, Blood 30 mmol/L (21-32); Calcium, Blood 9.8 mg/dL (8.5-10.1); Chloride, Blood 98 mmol/L (98-108); Creatinine, Blood 4.65 mg/dL (0.60-1.20); Glomerular Filtration Rate 13 (60-); Glucose, Blood 130 mg/dL (70-99); Magnesium, Blood 1.6 mg/dL (1.6-2.4); Phosphorus, Blood 1.8 mg/dL (2.5-4.9); Potassium, Blood 3.7 mmol/L (3.5-5.5); Sodium, Blood 136 mmol/L (136-145)
[2021-06-27 11:28] LABS: Hematocrit 29.9 % (37.0-53.0); Hemoglobin 9.8 g/dL (13.5-17.5)
--- NOTE | 2021-06-27 12:23 | NUR ---
LATE ENTRY: RUSTAM FISTULA POSITIVE BRUIT AND THRILL UPON ASSESSMENT AT 0800.
--- NOTE | 2021-06-27 12:23 | NUR ---
PT RETURNED FROM DIALYSIS. PT ABLE TO TRANSFER TO [facility] WITH MINIMAL ASSIST. PT SITTING UP AT SIDE OF BED TO EAT LUNCH. WILL ADMINISTER MORNING MEDICATION THAT WAS NOT GIVEN D/T PT AT DIALYSIS. WILL CONTINUE TO MONITOR.
--- NOTE | 2021-06-27 17:47 | NUR ---
PT RESTING IN BED NOW. PT HAD DIALYSIS TODAY, TOLERATED WELL POST DIALYSIS. PT WORKED WITH OCCUPATIONAL THERAPY TODAY, WAS TOO TIRED AND IN PAIN TO WORK WITH PHYSICAL THERAPY. PHYSICAL THERAPY STATED THEY WILL BE BACK TO WORK WITH PT TOMORROW. PT COMPLAINING OF NAUSEA TODAY. GIVEN PRN ZOFRAN AND TUMS WITH SOME RELIEF. PT ALSO REQUESTED PRN PAIN MEDICATION FOR LOW BACK AND HIP PAIN. PLAN STILL FOR D/C TO [facility]. PT WANTED TO GO TO [facility] TODAY AT HOSPITAL TO WITHDRAW MONEY FOR HIS RENT. HE WAS UNABLE TO DO SO D/T [facility] BEING OUT OF ORDER. PT CONTACTED FRIEND WHO WILL COME BY TOMORROW AFTERNOON AND HELP PT WITH THIS MATTER. WILL CONTINUE TO MONITOR FOR CHANGES AND WILL GIVE REPORT TO BRANCH RETAIL EXECUTIVE RN.
--- NOTE | 2021-06-27 21:53 | NUR ---
PATIENT RESTING QUIETLY, NO COMPLAINTS AT THIS TIME. CALL LIGHT WITHIN REACH.
--- NOTE | 2021-06-27 23:31 | NUR ---
PATIENT RESTING QUIETLY, CALL LIGHT WITHIN REACH.
--- NOTE | 2021-06-28 01:36 | NUR ---
SLEEPING AT THIS TIME, PATIENT APPEARS COMFORTABLE
--- NOTE | 2021-06-28 05:33 | NUR ---
LAB UP TO DRAW BLOOD, ATTEMPTED ONE POKE AND IT HURT THE PATIENT SO PLASTIC PARTS FABRICATOR TRIMMER ASKED IF RN COULD PULL FROM PATIENTS IV. RN ATTEMPTED TO PULL FROM IV, NO BLOOD RETURN, RN THEN FLUSHED IV AND THEN ATTEMPTED TO PULL BACK ON IT AND STILL NO BLOOD RETURN. HOT PACK PLACED ON PATIENT TO HELP WITH BLOOD DRAW. CALL LIGHT WITHIN REACH.
--- NOTE | 2021-06-28 06:09 | NUR ---
PATIENT SLEPT THROUGHOUT THE NIGHT, NO COMPLAINTS OR NEEDS. CALL LIGHT HAS BEEN WITHIN REACH.
[2021-06-28 06:22] LABS: BASOPHILS ABSOLUTE AUTO 0.05 K/mm3 (0.00-0.23); BASOPHILS PERCENT AUTO 1 % (0-2); EOSINOPHILS ABSOLUTE AUTO 0.36 K/mm3 (0.00-0.68); EOSINOPHILS PERCENT AUTO 5 % (0-6); Hematocrit 31.5 % (37.0-53.0); Hemoglobin 10.1 g/dL (13.5-17.5); IMMATURE GRAN ABSOLUTE AUTO 0.03 K/mm3 (0.00-0.10); IMMATURE GRAN PERCENT AUTO 0 % (0-1); LYMPHOCYTES ABSOLUTE AUTO 1.89 K/mm3 (0.84-5.20); LYMPHOCYTES PERCENT AUTO 28 % (21-46); MONOCYTES ABSOLUTE AUTO 0.67 K/mm3 (0.16-1.47); MONOCYTES PERCENT AUTO 10 % (4-13); Mean Corpuscular HGB 26.9 pg (26.0-34.0); Mean Corpuscular HGB Conc 32.1 g/dL (31.5-36.5); Mean Corpuscular Volume 84 fL (80-100); Mean Platelet Volume 8.6 fL (9.1-12.4); NEUTROPHILS ABSOLUTE AUTO 3.69 K/mm3 (1.96-9.15); NEUTROPHILS PERCENT AUTO 55 % (41-73); Platelet Count 314 K/mm3 (150-400); RDW Standard Deviation 42.8 fL (35.1-46.3); Red Blood Cell Count 3.75 M/mm3 (4.30-5.90); White Blood Cell Count 6.69 K/mm3 (4.00-11.30)
[2021-06-28 06:51] LABS: Albumin, Blood 2.7 g/dL (3.4-5.0); Anion Gap 7 mmol/L (6-16); Blood Urea Nitrogen 22 mg/dL (8-24); Bun/Creatinine Ratio 3.9 (12.0-20.0); CO2, Blood 33 mmol/L (21-32); Calcium, Blood 9.2 mg/dL (8.5-10.1); Chloride, Blood 94 mmol/L (98-108); Creatinine, Blood 5.57 mg/dL (0.60-1.20); Glomerular Filtration Rate 10 (60-); Glucose, Blood 93 mg/dL (70-99); Magnesium, Blood 1.7 mg/dL (1.6-2.4); Phosphorus, Blood 2.3 mg/dL (2.5-4.9); Potassium, Blood 3.7 mmol/L (3.5-5.5); Sodium, Blood 134 mmol/L (136-145)
--- NOTE | 2021-06-28 15:36 | NUR ---
PATIENT COMPLAINING OF PAIN IN TESTICLES. INFORMED PATIENT IT IS TOO SOON FOR ANOTHER DOSE OF PRN ULTRAM SO PATIENT ACCEPTABLE TO PRN TYLENOL ORDERS. PATIENT ALSO GIVEN ADA SNACK WITH TYLENOL PER REQUEST TO PREVENT NAUSEA. CALL LIGHT IN REACH DENIES OTHER NEEDS AT PRESENT.
--- NOTE | 2021-06-28 17:58 | NUR ---
PT IS C/O TESTICULAR PAIN. HE STATES THAT HE HAS HAD PAIN SINCE 0900. HOWEVER, HE DID NOT MENTION THIS UNTIL AROUND 1430. ULTRAM WAS GIVEN, APPROX 45MIN LATER, TYLENOL WAS GIVEN. NEITHER WERE EFFECTIVE. DR. INGRAM WAS NOTIFIED. SHE GAVE A 1 X ORDER FOR FENTANYL 25MCG IV FOR SEVERE PAIN. PT HAS ALSO BEEN C/O OF ABDOMINAL PAIN. HE STATES THAT HOSPITAL FOOD CAUSES HIS STOMACH TO HURT. HE DID HAVE SOME NOTED VOMITING JUST PRIOR TO LUNCH TIME. MA STATES HE NOTED BLOOD IN SPUTUM/EMESIS. HOWEVER, WHEN I LOOKED IN GARBAGE, NO BLOOD WAS NOTED. NOR DID I NOTE ANY IN THE SPUTUM. INFORMED DR. INGRAM OF THIS WELL. MEDICATED WITH ZOFRAN, THEN TUMS EARLIER. DR. INGRAM - NEW ORDER FOR PHENERGAN PRN. PT EATING VERY LITTLE FOOD. STATES ALL/MOST FOOD TASTES STALE. HE ADMITS THAT HE HAS NOTICED THIS ISSUE BEFORE IN THE PAST. PT COVID NEGATIVE. PT FRIENDLY AND COMPLIANT. PT GAVE HIS DEBIT CARD AND [place] TRAIL CARD TO HIS FRIEND LENORE. PT HAS BEEN UP TO BATHROOM TODAY WITH WALKER AND ASSITANCE. PT ABLE TO MAKE NEEDS MET AT THIS TIME. ALL ACCESS TO IV FLUIDS DONE ON R ARM.
--- NOTE | 2021-06-28 23:06 | NUR ---
PATIENT RESTING QUIETLY, MA IN TO CHECK HS CBG. POLAR KENNEDY ON LOWER BACK FOR PAIN CONTROL. CALL LIGHT WITHIN REACH.
--- NOTE | 2021-06-29 00:16 | NUR ---
RN CHECKING ON PATIENT, PATIENT AWAKE AND ASKS TO HAVE POLAR KENNEDY DC'D AND WOULD LIKE HELP TO LAY ON HIS LEFT SIDE. PATIENT ADJUSTED WITH HELP OF NURSE AND MA. CALL LIGHT WITHIN REACH.
--- NOTE | 2021-06-29 05:01 | NUR ---
PATIENT RESTED QUIETLY THROUGHOUT NIGHT. PATIENT COMMENTED AT THE BEGINNING OF SHIFT THAT HIS ABDOMEN/TESTICLES WERE STARTING TO HURT AGAIN. RN EXPLAINED THAT THE FENATANYL WAS A ONE TIME DOSE. RN OFFERED TO CHECK AND SEE IF PATIENT WAS DUE FOR TYLENOL. PATIENT REFUSED AND STATED HE JUST WANTED TO GO TO SLEEP. CALL LIGHT HAS BEEN WITHIN REACH THROUGHOUT THE NIGHT.
[2021-06-29 06:35] LABS: Hemoglobin 9.5 g/dL (13.5-17.5)
[2021-06-29 06:56] LABS: Albumin, Blood 2.5 g/dL (3.4-5.0); Anion Gap 6 mmol/L (6-16); Blood Urea Nitrogen 32 mg/dL (8-24); Bun/Creatinine Ratio 4.6 (12.0-20.0); CO2, Blood 33 mmol/L (21-32); Calcium, Blood 8.9 mg/dL (8.5-10.1); Chloride, Blood 93 mmol/L (98-108); Glomerular Filtration Rate 8 (60-); Glucose, Blood 91 mg/dL (70-99); Magnesium, Blood 2.2 mg/dL (1.6-2.4); Phosphorus, Blood 3.4 mg/dL (2.5-4.9); Potassium, Blood 3.8 mmol/L (3.5-5.5); Sodium, Blood 132 mmol/L (136-145)
--- NOTE | 2021-06-29 09:33 | NUR ---
PATIENT TAKEN TO DIALYSIS AT 0900. IV HYDRALAZINE HELD PER JORGE IN DIALYSIS. PATIENT ALERT, CONVERSIVE IN BED. NO C/O OR S/S OF DISTRESS. MORNING PO MEDS AND IV ANCEF GIVEN TO PATIENT WITH BREAKFAST BEFORE HEADING TO DIALYSIS. IV INFUSED AND PORTS FLUSHED WITOUT DIFFICULTY. BRUIT PRESENT TO LEFT UPPER ARM.
--- NOTE | 2021-06-29 17:27 | NUR ---
PT HAS REQUIRED NO S/S INSULIN OR HYDRALZINE T/O SHIFT R/T NOT MEETING PARAMETERS. UP TO BR WITH PHYSICAL THERAPY. USED BSCX1 TO HAVE BM. MEDICATED X1 FOR PAIN. NO S/S OF DISTRESS. CALL LIGHT WITHIN REACH AND UPPER RAILS UP.
--- NOTE | 2021-06-29 23:42 | NUR ---
PATIENT RESTING QUIETLY. CALL LIGHT WITHIN REACH.
--- NOTE | 2021-06-30 00:28 | NUR ---
PATIENT CALL LIGHT ON AND MA WENT TO SEE WHAT PATIENT NEEDED. PATIENT STATED THAT HE FELT LIKE HE HAD FLEAS AROUND HIS MOUTH AND TRYING TO GO UP HIS NOSE. MA INFORMED RN. RN WENT TO TALK WITH PATIENT, PATIENT REPEATED FEELING LIKE FLEAS WERE ON HIS FACE. PATIENT IS ALERT AND ORIENTED, HE DISCUSSED WITH NURSE WHY HE HAD DIALYSIS TODAY, WHICH IS NOT HIS USUAL DAY. RN INSTRUCTED HIM THAT WHILE HE WAS IN THE HOSPITAL HE WOULD RECEIVE DIALYSIS EVERY OTHER DAY. PATIENT WAS ABLE TO NOTE WHAT TODAY IS AND WHEN HE WOULD RECEIVE DIALYSIS OVER THE NEXT WEEK. RN INSTRUCTED PATIENT THAT HE NEEDED TO GO TO SLEEP AND NOT STAY UP ALL NIGHT WATCHING TV. PATIENT STATED THAT HE WOULD NOT STAY UP MUCH LONGER. CALL LIGHT WITHIN REACH.
[2021-06-30 05:39] LABS: Hematocrit 29.4 % (37.0-53.0); Hemoglobin 9.4 g/dL (13.5-17.5)
--- NOTE | 2021-06-30 05:48 | NUR ---
PATIENT UP TILL 0030 WATCHING TV ON IPAD, HAD AN EPISODE WHERE HE FELT LIKE FLEAS WERE ON HIS FACE AND TRYING TO GO UP HIS NOSE. PATIENT WAS ORIENTED X3 AT THAT TIME. RN SUGGESTED PATIENT TRY AND GET SOME SLEEP. PATIENT RESTED QUIETLY SINCE THEN. CALL LIGHT WITHIN REACH.
[2021-06-30 06:09] LABS: Albumin, Blood 2.5 g/dL (3.4-5.0); Anion Gap 6 mmol/L (6-16); Blood Urea Nitrogen 23 mg/dL (8-24); Bun/Creatinine Ratio 4.2 (12.0-20.0); CO2, Blood 32 mmol/L (21-32); Calcium, Blood 8.6 mg/dL (8.5-10.1); Chloride, Blood 98 mmol/L (98-108); Creatinine, Blood 5.47 mg/dL (0.60-1.20); Glomerular Filtration Rate 11 (60-); Glucose, Blood 80 mg/dL (70-99); Magnesium, Blood 2.1 mg/dL (1.6-2.4); Phosphorus, Blood 2.3 mg/dL (2.5-4.9); Potassium, Blood 3.6 mmol/L (3.5-5.5); Sodium, Blood 136 mmol/L (136-145)
--- NOTE | 2021-06-30 09:24 | NUR ---
PATIENT HAS BEEN RESTING IN BED WATCHING A MOVIE. ALERT AND ORIENTED. LUNGS CTA, HRR, BTX4, SKIN WARM AND DRY, BRUIT PALPABLE, PPP.CBG=76 AT BREAKFAST, NO INSULIN COVERAGE REQUIRED. DR MESA AND HOSPITALIST HAVE MADE ROUNDS ON PATIENT. PRE PAROLE COUNSELING AIDE WILL CONTINUE TO WORK ON PLACEMENT AT [facility]. NO S/S OF DISTRESS. CALL LIGHT WITHIN REACH AND UPPER RAILS UP. WILL CONTINUE TO MONITOR.
--- NOTE | 2021-06-30 09:29 | NUR ---
PATIENT ENCOURAGED TO GET UP AND WALK WITH FWW AND SBA. PATIENT WILL BE ENCOURAGED TO USE BATHROOM VS. COMMONDE.
--- NOTE | 2021-06-30 15:46 | NUR ---
PATIENT RESTING, WATCHING [employer]. THERAPY HERE AND WALKED PATIENT TO THE BATHROOM, OTHERWISE WANTS TO STAY IN BED AND WATCH [employer]. PATIENT ANXIOU TO GO HOME ONCE HIS SUBCONTRACT MANAGER GETS PLACEMENT SET UP. CALL LIGHT WITHIN REACH AND ABLE TO REPOSITION SELF INDEPENDENTLY.
--- NOTE | 2021-07-01 01:34 | NUR ---
1900-RECIEVED REPORT FROM MARISABEL RN, PT ASSESSMENT WITH NO CHANGES FROM DAY RN PT GIVEN HS CARE, 0000-PT MEDICATED FOR TESTICLE PAIN 0130-PT RESTING QUIETLY IN BED
[2021-07-01 04:24] LABS: Hematocrit 29.6 % (37.0-53.0); Hemoglobin 9.5 g/dL (13.5-17.5)
[2021-07-01 04:43] LABS: Albumin, Blood 2.4 g/dL (3.4-5.0); Anion Gap 7 mmol/L (6-16); Blood Urea Nitrogen 30 mg/dL (8-24); Bun/Creatinine Ratio 4.6 (12.0-20.0); CO2, Blood 30 mmol/L (21-32); Calcium, Blood 8.3 mg/dL (8.5-10.1); Chloride, Blood 98 mmol/L (98-108); Creatinine, Blood 6.57 mg/dL (0.60-1.20); Glomerular Filtration Rate 9 (60-); Glucose, Blood 65 mg/dL (70-99); Magnesium, Blood 1.9 mg/dL (1.6-2.4); Phosphorus, Blood 4.1 mg/dL (2.5-4.9); Potassium, Blood 3.4 mmol/L (3.5-5.5); Sodium, Blood 135 mmol/L (136-145)
--- NOTE | 2021-07-01 04:48 | NUR ---
PT RESTED WELL DURING SHIFT, VSS, NO ACUTE CHANGES
--- NOTE | 2021-07-01 06:27 | NUR ---
PT RESTED WELL, NO SIGNIFICANT CHANGES THROUGH OUT SHIFT, WILL REPORT TO AM NURSE AND TRANSFER CARE
--- NOTE | 2021-07-01 10:28 | NUR ---
PATIENT CURRENTLY AT DIALYSIS. MORNING HYDALAZINE HELD PER DIALYSIS NURSE. PATIENT ALERT AND ORIENTED AND CONVERSIVE WITH STAFF. NO S/S DISTRESS. VSS. BREAKFAST CBG=60. NO SLIDING SCALE NEEDED. CBG=85 AFTER DRINKING ORANGE JUICE. BREAKFAST TRAY DELIVERED AT THAT TIME. PATIENT HAS BEEN UP TO THE BR TO VOID. PATIENT REQUESTED COMMODE AND STAFF ENCOURAGED PT TO AMBULATE TO RESTROOM. PATIENT PROCEEDED TO WALK TO BR WITH SBA AND FWW. W/C USED FROM BATHROOM BACK TO BED. PT ENCOURAGED TO AMBULATE MORE TO INCREASE STRENGTH, MOBILITY AND STAMINA. LEFT UPPER ARM BRUIT PALPABLE. RIGHT ARM IV PORTS FLUSHED AND FUNCTIONING. SKIN WARM AND DRY. UPPER RAILS UP, CALL LIGHT WITHIN REACH.
--- NOTE | 2021-07-01 12:15 | NUR ---
PATIENT RETURNED FROM DIALYSIS. UP TO COMMODE TO VOID-NO BM. NO S/S DISTRESS. CBG=77-NO INSULIN REQUIRED. HAVING LUNCH. UPPER RAILS UP, CALL LIGHT WITHIN REACH.
--- NOTE | 2021-07-01 12:54 | NUR ---
BP 165/76, P=99 WILL ADMINISTER 0900 25MG METOPROLOL THAT WAS HELD FOR DIALYSIS THIS AM.
--- NOTE | 2021-07-02 05:58 | NUR ---
SHIFT SUMMARY: NO CHANGES FROM PREVIOUS ASSESMENT. GOOD RELEIF FROM TUMS. PT RELATES HE SLEPT WELL WITH GOOD DREAMS.
[2021-07-02 06:21] LABS: BASOPHILS ABSOLUTE AUTO 0.05 K/mm3 (0.00-0.23); BASOPHILS PERCENT AUTO 1 % (0-2); EOSINOPHILS ABSOLUTE AUTO 0.52 K/mm3 (0.00-0.68); EOSINOPHILS PERCENT AUTO 8 % (0-6); Hemoglobin 9.6 g/dL (13.5-17.5); IMMATURE GRAN ABSOLUTE AUTO 0.03 K/mm3 (0.00-0.10); IMMATURE GRAN PERCENT AUTO 1 % (0-1); LYMPHOCYTES ABSOLUTE AUTO 1.97 K/mm3 (0.84-5.20); LYMPHOCYTES PERCENT AUTO 31 % (21-46); MONOCYTES ABSOLUTE AUTO 0.56 K/mm3 (0.16-1.47); MONOCYTES PERCENT AUTO 9 % (4-13); Mean Corpuscular HGB 27.3 pg (26.0-34.0); Mean Corpuscular Volume 85 fL (80-100); Mean Platelet Volume 8.6 fL (9.1-12.4); NEUTROPHILS PERCENT AUTO 51 % (41-73); Platelet Count 268 K/mm3 (150-400); RDW Coefficient Variation 14.2 % (11.7-14.2); Red Blood Cell Count 3.52 M/mm3 (4.30-5.90); White Blood Cell Count 6.33 K/mm3 (4.00-11.30)
[2021-07-02 06:42] LABS: Albumin, Blood 2.4 g/dL (3.4-5.0); Anion Gap 4 mmol/L (6-16); Blood Urea Nitrogen 21 mg/dL (8-24); CO2, Blood 31 mmol/L (21-32); Chloride, Blood 102 mmol/L (98-108); Creatinine, Blood 5.19 mg/dL (0.60-1.20); Glomerular Filtration Rate 11 (60-); Glucose, Blood 67 mg/dL (70-99); Magnesium, Blood 1.9 mg/dL (1.6-2.4); Phosphorus, Blood 3.1 mg/dL (2.5-4.9); Potassium, Blood 4.1 mmol/L (3.5-5.5); Sodium, Blood 137 mmol/L (136-145)
[2021-07-03 05:25] LABS: Hematocrit 30.3 % (37.0-53.0); Hemoglobin 9.7 g/dL (13.5-17.5)
--- NOTE | 2021-07-03 05:48 | NUR ---
PT REMAINS UNCHANGED FROM INITAL ASSESMENT. MEDICATED FOR PAIN WITH ADEQUATE RELEIF. UP TO COMMODE WITH ASSISTANCE.
[2021-07-03 06:08] LABS: Albumin, Blood 2.5 g/dL (3.4-5.0); Anion Gap 7 mmol/L (6-16); Blood Urea Nitrogen 27 mg/dL (8-24); Bun/Creatinine Ratio 4.3 (12.0-20.0); CO2, Blood 28 mmol/L (21-32); Chloride, Blood 102 mmol/L (98-108); Creatinine, Blood 6.26 mg/dL (0.60-1.20); Glomerular Filtration Rate 9 (60-); Glucose, Blood 86 mg/dL (70-99); Magnesium, Blood 1.9 mg/dL (1.6-2.4); Phosphorus, Blood 3.4 mg/dL (2.5-4.9); Potassium, Blood 4.2 mmol/L (3.5-5.5); Sodium, Blood 137 mmol/L (136-145)
--- NOTE | 2021-07-03 18:14 | NUR ---
SHIFT SUMMARY PT REFUSED TO AMBULATE MULTIPLE TIMES TODAY. PT ADAMANT ABOUT USING BSC, BUT TX TO BSC INDEPENDENTLY WITH STEADY GAIT/TX. PT ALSO REQUESTING STAFF TO POSITION HIM, "PULL MY BUTT BACK" "SCOOT ME A LITTLE". PT ABLE TO REPOSITION AND MOVE INDEPENDENTLY, BUT CONTINUALLY REFUSING TO MOVE/AMBULATE/POSITION SELF THROUGHOUT SHIFT. PT DECLINES PAIN WHEN TX, DECLINES TO OFFER REASON FOR NOT WANTING TO MOVE SELF. PT TO DIALYSIS THIS AM; TOLERATED WELL, DECLINING ANTI-NAUSEA, PAIN OR OTHER MEDS PRIOR TO. PAIN WELL CONTROLLED WITH TYLENOL TWICE THIS SHIFT, AND A MENTHOL PATCH APPLIED ONCE TO LOWER BACK. PO INTAKE ADEQUATE UNTIL PT REFUSED DINNER. OTHER OPTIONS PROVIDED, BUT PT DECLINED. PT C/O NAUSEA AND MEDICATED AT 1643. PT RESTING IN BED, LIGHTS DIMMED & CALL LIGHT WITHIN REACH.
--- NOTE | 2021-07-03 22:33 | NUR ---
PATIENT C/O STOMACH PAIN, HE FEELS THAT THIS IS BECAUSE HE TOOK HIS MEDICATIONS ON AN EMPTY STOMACH OFFERED PATIENT DIFFERENT FOOD OPTIONS AND HE CHOSE A BANANA. WE WILL SEE IF THIS HELPS HIS STOMACH SETTLE AND OBSERVE FOR NOW
--- NOTE | 2021-07-04 00:49 | NUR ---
SLEEPING AND APPEARS COMFORTABLE. CALL LIGHT WITHIN REACH
[2021-07-04 06:12] LABS: Hematocrit 30.9 % (37.0-53.0); Hemoglobin 9.9 g/dL (13.5-17.5)
[2021-07-04 06:32] LABS: Magnesium, Blood 2.1 mg/dL (1.6-2.4)
[2021-07-04 06:33] LABS: Albumin, Blood 2.5 g/dL (3.4-5.0); Anion Gap 7 mmol/L (6-16); Blood Urea Nitrogen 21 mg/dL (8-24); Bun/Creatinine Ratio 4.3 (12.0-20.0); CO2, Blood 30 mmol/L (21-32); Calcium, Blood 8.3 mg/dL (8.5-10.1); Chloride, Blood 99 mmol/L (98-108); Creatinine, Blood 4.91 mg/dL (0.60-1.20); Glomerular Filtration Rate 12 (60-); Glucose, Blood 87 mg/dL (70-99); Phosphorus, Blood 3.2 mg/dL (2.5-4.9); Potassium, Blood 4.2 mmol/L (3.5-5.5); Sodium, Blood 136 mmol/L (136-145)
--- NOTE | 2021-07-04 11:38 | NUR ---
0930 OT IN PTS ROOM WORKING WITH PT.
--- NOTE | 2021-07-04 11:41 | NUR ---
0800 PTS FISTULA TO LEFT UPPER ARM BRUIT AUSCULTATED, SITE NOTED TO BE DRY AND INTACT.
--- NOTE | 2021-07-04 14:00 | NUR ---
1345 PT IN BED WATCHING MOVIE. NO DISTRESS NOTED
--- NOTE | 2021-07-04 16:53 | NUR ---
PT REMAINS ALERT,ORIENTED AND COOPERATIVE TODAY. PT EDUCATION PROVIDED THROUGHOUT THE SHIFT, REGARDING PAIN MANAGEMENT,MOVING ALL EXTREMITIES,COUGHING AND DEEP BREATHING FREQUENTLY.PTS PAIN GOAL WAS IDENTIFIED A 5 OUT OF 10, DURING THIS SHIFT PTS PAIN WAS MAINTAINED AT 4 TO LOWER BACK,HIPS,PELVIS, AND SCROTUM. PRN PAIN MEDS ADMINISTERED. PTS APPETITE WAS ADEQUATE.
--- NOTE | 2021-07-04 21:00 | NUR ---
WHEN PT. WAS ASKED IF HE HAD ANY PAIN, PT. STATED "NO" THEN VERBALIZED HIS PAIN WAS PRETTY GOOD RATING A "1". PT. VERBALIZED HIS PAIN WAS IN HIS TAILBONE & TESTICLES.
--- NOTE | 2021-07-05 01:34 | NUR ---
PT. WITH GOOD BRUIT TO [facility] DIALYSIS CATH.
--- NOTE | 2021-07-05 04:26 | NUR ---
PT. SLEEPING MOSTLY T.O. NIGHT. PT. CALLED X1 VERBALIZING HE WAS COLD. PT. GIVEN A WARM BLANKET BUT OTHERWISE SLEEPING.
[2021-07-05 05:46] LABS: Hematocrit 30.4 % (37.0-53.0); Hemoglobin 9.9 g/dL (13.5-17.5)
[2021-07-05 06:13] LABS: Albumin, Blood 2.5 g/dL (3.4-5.0); Anion Gap 7 mmol/L (6-16); Blood Urea Nitrogen 30 mg/dL (8-24); Bun/Creatinine Ratio 4.8 (12.0-20.0); CO2, Blood 28 mmol/L (21-32); Calcium, Blood 8.6 mg/dL (8.5-10.1); Chloride, Blood 100 mmol/L (98-108); Creatinine, Blood 6.22 mg/dL (0.60-1.20); Glomerular Filtration Rate 9 (60-); Glucose, Blood 94 mg/dL (70-99); Magnesium, Blood 1.8 mg/dL (1.6-2.4); Phosphorus, Blood 3.1 mg/dL (2.5-4.9); Potassium, Blood 3.9 mmol/L (3.5-5.5); Sodium, Blood 135 mmol/L (136-145)
--- NOTE | 2021-07-05 06:33 | NUR ---
PT. SLEPT GOOD T.O. NIGHT PER PT. UNTIL LAB CAME IN & WOKE HIM UP. PT. DID WAKE UP ONE OTHER TIME IN THE NIGHT WANTING A WARM BLANKET. PT. PLAYING GAMES ON HIS PHONE THIS AM. PT. DOES CALL APPROPRIATELY WHEN NEEDS ANYTHING.
--- NOTE | 2021-07-05 08:44 | NUR ---
PATIENT ALERT AND ORIENTED RESTING IN BED. LCTA, +BT, HRR. BRUIT PALPABLE TO LEFT UPPER ARM. RIGHT ARM POWER GLIDE PATENT AND BOTH CATHETERS FLUSHED AND CAPPED. DR MESA IN TO SEE PATIENT THIS MORNING AND GAVE A VERAL ORDER FOR A SCROTAL ULTRASOUND. ORDER SENT AND SECTIONAL BELT MOLD ASSEMBLER CALLED. TECH WILL COME AFTER PATIENT RETURNS FROM DIALYSIS AROUND NOON. CBG 92 THIS MORNING-NO SLIDING SCALE INSULIN GIVEN. UPPER RAILS UP AND CALL LIGHT WITHIN REACH. WILL CONTINUE TO MONITOR.
--- NOTE | 2021-07-05 08:55 | NUR ---
PATIENT TAKEN TO DIALYSIS VIA HOSPITAL BED.
--- NOTE | 2021-07-05 11:55 | NUR ---
BROUGHT PATIENT BACK FROM DIALYSIS VIA HOSPITAL BED. PATIENT ANXIOUS TO GET BACK TO USE COMMODE. COMMMODE USED, ONLY VOIDED URINE. ASKED PT WHEN HE LAST HAD A BM AND HE STATED HE HAD 3 ON WEDNESDAY. CHARTING UPDATED WITH THIS INFO. CBG=96, NO INSULIN COVERAGE NEEDED. WILL GIVE METOPROLOL ONCE PATIENT IS FINISHED EATING AND 1400 HYDRALAZINE DOSE. NO S/S OF DISTRESS. WILL CONTINUE TO MONITOR.
--- NOTE | 2021-07-05 15:47 | NUR ---
PATIENT UP TO THE BSC. PATIENT ENCOURAGED TO WALK TO THE BATHROOM BUT STATED HE IS UNABLE TO DUE TO ARTHRITIS PAIN IN HIS TAILBONE. ULTRASOUND HAS BEEN HERE AND PERFORMED HIS SCROTAL ULTRSOUND. WAITING FOR RESULTS.
--- NOTE | 2021-07-05 16:10 | NUR ---
PT HAD BM IN BSC. BM DIANE IN COLOR WITH SPOTS OF RED. CALLED THE HOSPITALIST AND ORDER REC'D TO GUAI STOOL. STOOL COLLECTED AND SENT TO LAB. PT RESTING IN BED WATCHING [employer]. WILL CONTINUE TO MONITOR.
--- NOTE | 2021-07-05 17:58 | NUR ---
NO CHANGES IN STATUS. PATIENT RESTING IN BED WATCHING TV. UPPER RAILS UP, CALL LIGHT WITHIN REACH. WILL CONTINUE TO MONITOR.
--- NOTE | 2021-07-05 20:08 | NUR ---
PT. DAWSON FLUSHED X2 PORTS WITH 10ML NACL IN EACH PORT.
[2021-07-05 20:40] LABS: Stool Occult Blood Guaiac 1 Neg (Neg)
[2021-07-06 05:50] LABS: Hematocrit 32.5 % (37.0-53.0); Hemoglobin 10.3 g/dL (13.5-17.5)
--- NOTE | 2021-07-06 06:00 | NUR ---
PT. VERBALIZES TYLENOL HELPING HIS TAILBONE PAIN.
[2021-07-06 06:14] LABS: Magnesium, Blood 2.2 mg/dL (1.6-2.4)
[2021-07-06 06:15] LABS: Albumin, Blood 2.6 g/dL (3.4-5.0); Anion Gap 2 mmol/L (6-16); Blood Urea Nitrogen 22 mg/dL (8-24); Bun/Creatinine Ratio 4.5 (12.0-20.0); CO2, Blood 34 mmol/L (21-32); Chloride, Blood 100 mmol/L (98-108); Creatinine, Blood 4.87 mg/dL (0.60-1.20); Glomerular Filtration Rate 12 (60-); Glucose, Blood 86 mg/dL (70-99); Phosphorus, Blood 2.7 mg/dL (2.5-4.9); Potassium, Blood 3.8 mmol/L (3.5-5.5); Sodium, Blood 136 mmol/L (136-145)
--- NOTE | 2021-07-06 06:30 | NUR ---
PT. SLEPT OFF & ON T.O. NIGHT. PT. WAS MEDICATED WITH TYLENOL X1 FOR TAILBONE PAIN RATING "2". PT. VERBALIZED THAT TYLENOL HELPED IS PAIN. PT. HAD A RED/BROWN FORMED BM THIS AM. PT. OCCULT BLOOD RECEIVED YESTERDAY AT 1610 WITH CAME BACK NEGATIVE.
--- NOTE | 2021-07-06 08:45 | NUR ---
PATIENT A/A/O, CONVERSIVE WITH STAFF. LCTA, +BT, HRR, NO EDEMA, SKIN WARM AND DRY, VSS, NO S/S DISTRESS. IV SITE WNL AND PORTS FUSH EASILY. UPPER RAILS UP, CALL LIGHT WITHIN REACH. WILL CONTINUE TO MONITOR.
--- NOTE | 2021-07-06 15:30 | NUR ---
CALLED DR CRESPO REGARDING A PROGRESS NOTE IN PATIENTS CHART STATING A CHANGE IN PATIENT'S ABTIBIOTICS. DR CRESPO STATED THAT I DIDN'T NEED TO WORRY ABOUT IT. PATIENT ASKED FOR BSC. ENCOURAGED PT TO WALK TO THE BATHROOM INSTEAD. PATIENT AMBULATED TO AND FROM THE BATHROOM WITH A FWW AND SBA. CALL LIGHT REAMINS WITHIN REACH AND UPER RAILS UP.
--- NOTE | 2021-07-06 18:11 | NUR ---
PT HAS RESTED IN BED MOST OF THE AFTERNOON. 104 DINNER CBG REQUIRING NO INSULIN. PT ASKED FOR BSC AND HAD A BM. PT ENCOURGAED TO WALK TO RESTROOM BUT REFUSED. THIS NURSE ENCOURAGED PATIENT TO WALK SO HE COULD GET STRONGER.
--- NOTE | 2021-07-07 02:29 | NUR ---
PT. C/O TESTICLE PAIN RATING A "6" & SHARP, TYLENOL GIVEN PER DR. KOTHARI.
--- NOTE | 2021-07-07 02:39 | NUR ---
PT. CBG DONE AT WITH RESULT OF 99. CBG MACHINES NOT TRANSFERING OVER RESULT TO COMPUTER.
--- NOTE | 2021-07-07 05:52 | NUR ---
PT. VERBALIZES TYLENOL HELPED HIS PAIN. NOW RATING A "3".
--- NOTE | 2021-07-07 05:57 | NUR ---
PT. REPOSITIONED IN BED WITH HIS HEAD UP & PILLOW PLACED UNDER HIS KNEES FOR COMFORT.
--- NOTE | 2021-07-07 05:58 | NUR ---
PT. SLEPT OFF & ON T.O. NIGHT. PT. MEDICATED WITH TYLENOL FOR TESTICLE PAIN. PT. VERBALIZES TYLENOL WORKS QUICKER ON HIS PAIN THAN THE TRAMADOL. PT. PAIN FORM "6" TO "3" THIS AM. PT. IN ROOM PLAYING GAME ON HIS PHONE AT THIS TIME. PT. REMINDED TO CALL IF NEEDED ANYTHING. PT. VERBALIZES BEING WARM ENOUGH. CALL LIGHT IS WITHIN REACH.
--- NOTE | 2021-07-07 08:33 | NUR ---
DR. MESA CALLED PER ORDERS WITH UPLATED HGB & K+. NO ORDERS.
--- NOTE | 2021-07-08 04:28 | NUR ---
SLEEPING, VERY QUIET EVENING. CALL LIGHT WITHIN REACH PATIENT APPEARS COMFORTABLE AT THIS TIME
--- NOTE | 2021-07-08 18:08 | NUR ---
SHIFT SUMMARY PT PLEASANT AND CALM TODAY. PT AGREEABLE TO FULL SHOWER & ORAL CARE THIS PM. LINENS & ROOM CLEANED WHILE HE WAS OUT. PO INTAKE LESS THAN ADEQUATE, HE HAS REFUSED HIS FIRST TWO MEALS, AND DECLINED SUBSTITUTES. SNACKS PROVIDED THIS PM. PAIN WELL CONTROLLED, ONLY UTILIZING TYLENOL ONCE. FRESH MENTHOL PATCH DECLINED.
--- NOTE | 2021-07-09 05:40 | NUR ---
PATIENT SLEPT WILL AND HAD NO PROBLEMS THROUGHOUT THE NIGHT.
[2021-07-09 06:01] LABS: Hematocrit 30.3 % (37.0-53.0); Hemoglobin 9.7 g/dL (13.5-17.5)
[2021-07-09 06:16] LABS: Albumin, Blood 2.5 g/dL (3.4-5.0); Anion Gap 7 mmol/L (6-16); Blood Urea Nitrogen 29 mg/dL (8-24); Bun/Creatinine Ratio 4.7 (12.0-20.0); CO2, Blood 30 mmol/L (21-32); Calcium, Blood 8.7 mg/dL (8.5-10.1); Chloride, Blood 100 mmol/L (98-108); Glomerular Filtration Rate 9 (60-); Glucose, Blood 93 mg/dL (70-99); Magnesium, Blood 2.3 mg/dL (1.6-2.4); Phosphorus, Blood 3.2 mg/dL (2.5-4.9); Potassium, Blood 4.1 mmol/L (3.5-5.5); Sodium, Blood 137 mmol/L (136-145)
--- NOTE | 2021-07-09 12:26 | NUR ---
DIALYSIS TODAY [id number]. PT TOLERATED WELL, DENIES PAIN OR DISCOMFORT UPON RETURN.
--- NOTE | 2021-07-09 16:21 | NUR ---
OCCUPATIONAL THERAPY IN WITH PT
--- NOTE | 2021-07-09 17:12 | NUR ---
PT DECLINED DINNER BUT ASKED IF I COULD HOLD IT FOR HIM UNTIL HIS STOMACH FEELS BETTER. I LEFT HIS TRAY IN HIS ROOM AND OFFERED TO WARM UP HIS DINNER IF NEEDED.
--- NOTE | 2021-07-09 17:43 | NUR ---
APPROX 1625 WHILE WORKING WITH OT, PT AMBULATED TO RESTROOM TO HAVE BOWEL MOVEMENT. PT STS BM WAS THIN, LOOSE STOOLS. AFTER BM, PT C/O NAUSEA, UPSET STOMACH AND CLAMMY. PT RETURNED TO RECLINER, MEDICATED WITH TUMS, ZOFRAN & ACETAMINOPHEN AROUND 1640. APPROX 1715, PT STS NAUSEA AND MILD SWEATING HAS RESOLVED, STOMACH STILL "A LITTLE UNEASY." DECLINED DINNER, BUT WILL HOLD FOR LATER. PT UP IN RECLINER, IN NEW ROOM, WATCHING TELEVISION. DECLINES NEEDS AT THIS TIME.
--- NOTE | 2021-07-09 17:51 | NUR ---
SHIFT SUMMARY PT HAD DIALYSIS THIS AM W/O ISSUES. PAIN WELL CONTROLLED TODAY, WITH ONLY A MENTHOL PATCH APPLIED TO LOWER BACK THIS AM. PT & BELONGINGS MOVED TO ROOM 420. WHILE WORKING WITH OT, PT HAD BM & THEN BEGAN FEELING NAUSEATED W/UPSET STOMACH. PT MEDICATED & PT REPORTS IMPROVEMENT, BUT NOT COMPLETE RESOLVE OF UPSET STOMACH. PT HAPPY ABOUT MOVE, WATCHING TELEVSION IN RECLINER.
--- NOTE | 2021-07-10 00:51 | NUR ---
PT NOTED TO BE SLEEPING IN BED WITHOUT S/S OF DISTRESS, CALL LIGHT IN PT REACH, SIDE RAILS UP X3 AND BED IN LOW POSITION.
--- NOTE | 2021-07-10 02:21 | NUR ---
PT SLEEPING IN BED QUIETLY, NO DISTRESS NOTED. CALL LIGHT IN PT REACH, X3 SIDE RAILS UP AND BED IN LOW POSITION.
--- NOTE | 2021-07-10 04:13 | NUR ---
PT MEDICATED FOR BILATERAL HIP PAIN DURING THE NIGHT X1 WITH TYLENOL PO, PT RATES PAIN 6 OUT OF 10. PT SLEPT UNTIL 0200 AND HAS BEEN RESTING QUIETLY THE REMAINDER OF THE MORNING. PT REQUESTED SNACK AND FRESH WATER. BLOOD GLUCOSE AT HS WAS 92, PT DID NOT REQUIRE INSULIN COVERAGE. PT DID NOT EAT DINNER BUT WAS OFFERED A SNACK. PT HAD BECKY CRACKERS FOR HS SNACK. LAB HERE AT 0400 TO DRAW LAB SPECIMENS ORDERED BY .
--- NOTE | 2021-07-10 07:16 | NUR ---
CHANGE OF SHIFT REPORT GIVEN FROM PMRN: SISI MEJIA. [id number]- INSULIN NOT GIVEN DT BELLOW MIN OF 150. DR. MESA SAW PT AT 0715 W NO NEW ORDERS. HEADTOTOE ASSEMENT W NO NEW DEVELOPMENTS. PT RSTING COMFORTABLY IN BED, SLEEPING. BED LOWEST POSITION LOCKED W CALL LIGHT W IN REACH. END NOTE ORSC.RDS.
--- NOTE | 2021-07-10 15:58 | NUR ---
PT TRANSFERED TO [facility] W ALL PERSONALS AT 1515. END NOTE ORSC.RDS
--- NOTE | 2021-07-10 15:59 | NUR ---
TRANFER REPORT GIVEN TO SATHISH JASMINE RN AT 1445. END NOTE ORSC.RDS
--- NOTE | 2021-07-10 17:37 | NUR ---
SHIFT SUMMARY: RECEIVED PT A TRANSFER AROUND 1545. PT IS ALERT AND ORIENTED AND ABLE TO MAKE NEEDS KNOWN. HE IS UP WITH SUPERVISION. COMPLAINS OF LOWER BACK PAIN BUT REFUSING MEDICATION AT THIS TIME AND SAYS IT RESPONDS TO HEAT, SO WARM BLANKET PLACED ON BACK. PT ORIENTED TO ROOM AND CALL LIGHT SYSTEM. HOURLY ROUNDING COMPLETED FOR SAFETY.
[2021-07-11 04:53] LABS: Hematocrit 32.3 % (37.0-53.0); Hemoglobin 10.2 g/dL (13.5-17.5)
[2021-07-11 05:16] LABS: Albumin, Blood 2.7 g/dL (3.4-5.0); Anion Gap 7 mmol/L (6-16); Blood Urea Nitrogen 30 mg/dL (8-24); Bun/Creatinine Ratio 4.8 (12.0-20.0); CO2, Blood 31 mmol/L (21-32); Calcium, Blood 8.8 mg/dL (8.5-10.1); Chloride, Blood 98 mmol/L (98-108); Creatinine, Blood 6.25 mg/dL (0.60-1.20); Glomerular Filtration Rate 9 (60-); Glucose, Blood 82 mg/dL (70-99); Magnesium, Blood 2.1 mg/dL (1.6-2.4); Phosphorus, Blood 3.7 mg/dL (2.5-4.9); Potassium, Blood 4.2 mmol/L (3.5-5.5); Sodium, Blood 136 mmol/L (136-145)
--- NOTE | 2021-07-11 06:05 | NUR ---
PATIENT HAD ONE EPISODE OF NAUSEA AROUND 2230. PHENERGAN WAS GIVEN. NAUSEA WAS RELIEVED, HE DENIES ANY NAUSEA THIS MORNING. HE DID COMPLAIN OF SOME PAIN IN STERNUM AND BACK REGION THIS MORNING. HE REQUESTED TYLENOL FOR IT. OTHERWISE, NO OTHER SIGNIFICANT EVENTS OCCURED OVERNIGHT.
--- NOTE | 2021-07-11 18:35 | NUR ---
alert to self and location, call light in reach, returned from dialysis, rm air and saline locked, walked to bathroom with pt, will continue to monitor and treat until share report with noc nurse
[2021-07-12 04:39] LABS: Hematocrit 31.5 % (37.0-53.0); Hemoglobin 10.1 g/dL (13.5-17.5)
--- NOTE | 2021-07-12 04:41 | NUR ---
NO ACUTE CHANGES OR SIGNIFICANT EVENTS OVERNIGHT. DENIES PAIN. DENIES NAUSEA.
[2021-07-12 05:00] LABS: Albumin, Blood 2.6 g/dL (3.4-5.0); Anion Gap 7 mmol/L (6-16); Blood Urea Nitrogen 26 mg/dL (8-24); CO2, Blood 31 mmol/L (21-32); Calcium, Blood 8.5 mg/dL (8.5-10.1); Chloride, Blood 100 mmol/L (98-108); Creatinine, Blood 5.17 mg/dL (0.60-1.20); Glomerular Filtration Rate 11 (60-); Glucose, Blood 114 mg/dL (70-99); Magnesium, Blood 2.2 mg/dL (1.6-2.4); Phosphorus, Blood 2.7 mg/dL (2.5-4.9); Potassium, Blood 4.2 mmol/L (3.5-5.5); Sodium, Blood 138 mmol/L (136-145)
--- NOTE | 2021-07-12 18:39 | NUR ---
alert and orintated to self and location, enjoying watching tv, still waiting for resolution
--- NOTE | 2021-07-13 03:47 | NUR ---
NO ACUTE CHANGES OR SIGNIFICANT NOTED OVERNIGHT. PHENERGAN GIVEN ONCE AT BEDTIME FOR NAUSEA. NAUSEA RESOLVED.
--- NOTE | 2021-07-13 18:49 | NUR ---
a+o, down for dialysis, call light in reach, saline locked, rm air, will continue to monitor and treat until share bsr with noc nurse
[2021-07-14 04:58] LABS: Hematocrit 31.4 % (37.0-53.0)
[2021-07-14 05:16] LABS: Albumin, Blood 2.5 g/dL (3.4-5.0); Anion Gap 5 mmol/L (6-16); Blood Urea Nitrogen 22 mg/dL (8-24); Bun/Creatinine Ratio 4.4 (12.0-20.0); CO2, Blood 29 mmol/L (21-32); Calcium, Blood 8.9 mg/dL (8.5-10.1); Chloride, Blood 102 mmol/L (98-108); Creatinine, Blood 4.99 mg/dL (0.60-1.20); Glomerular Filtration Rate 12 (60-); Glucose, Blood 91 mg/dL (70-99); Magnesium, Blood 2.1 mg/dL (1.6-2.4); Phosphorus, Blood 2.7 mg/dL (2.5-4.9); Potassium, Blood 4.1 mmol/L (3.5-5.5); Sodium, Blood 136 mmol/L (136-145)
--- NOTE | 2021-07-14 06:25 | NUR ---
SHIFT SUMMARY A/O, ABLE TO MAKE NEEDS KNOWN. COOPERATIVE WITH CARE. CALLS AND ANSWERS QUESTIONS APPROPRIATELY. NO C/O PAIN/DISCOMFORT. HAD 3 EPISODES OF LOOSE STOOLS. NO REPORTED ABD PAIN. NO OTHER ACUTE CHANGES NOTED. BED REMAINS IN LOWEST POSITION. 1P SBA TO BSC. CALL LIGHT AND BELONGINGS WITHIN REACH. CONTINUE WITH CURRENT PLAN OF CARE. REPORT TO ONCOMING RN.
--- NOTE | 2021-07-14 18:08 | NUR ---
Shift Summary A/Ox4, pleasant and cooperative. Worked with PT, tolerated well. Medicated x 1 for scrotum/back pain with good effect. Up independently to bathroom. Calls for needs appropriately. Appetite is good. No acute concerns. WCTM.
--- NOTE | 2021-07-15 04:28 | NUR ---
SUMMARY NO NEW ISSUES NOTED. PT HAS RESTED W/OUT ISSUE T/OUT SHIFT. PT CURRENTLY SLEEPING IN NO DISTRESS. CALL LIGHT IN REACH.
[2021-07-15 05:32] LABS: Hematocrit 30.6 % (37.0-53.0); Hemoglobin 9.8 g/dL (13.5-17.5)
[2021-07-15 06:19] LABS: Albumin, Blood 2.5 g/dL (3.4-5.0); Anion Gap 8 mmol/L (6-16); Blood Urea Nitrogen 28 mg/dL (8-24); Bun/Creatinine Ratio 4.3 (12.0-20.0); CO2, Blood 29 mmol/L (21-32); Calcium, Blood 8.8 mg/dL (8.5-10.1); Chloride, Blood 100 mmol/L (98-108); Creatinine, Blood 6.54 mg/dL (0.60-1.20); Glomerular Filtration Rate 9 (60-); Glucose, Blood 84 mg/dL (70-99); Magnesium, Blood 2.4 mg/dL (1.6-2.4); Phosphorus, Blood 3.7 mg/dL (2.5-4.9); Potassium, Blood 4.2 mmol/L (3.5-5.5); Sodium, Blood 137 mmol/L (136-145)
[2021-07-15] MEDS ORDERED: CEFAZOLIN2 GM/50 M3 IV (10:33)
[2021-07-15] MEDS ORDERED: HYDR10 PO (10:33)
[2021-07-15] MEDS ORDERED: RIFA300 PO (10:43)
--- NOTE | 2021-07-15 13:20 | NUR ---
Discharge Summary AOx4, patient had dialysis today but did not want to finish session. Up to bedside commode x SBA, weakness. Discharging to home with , reviewed d/c papers, questions answered. Meds faxed to [facility] by this RN. Med rec faxed to [facility] by NATALI Lehman for IV abx to be given at [facility] for an additional 3 weeks. Escorted by staffing specialist via w/c, personal belongings returned. Patient declined discharge to [facility], [facility] will work aggressively towards getting state approved customer care team coach who is also a friend. Dialysis scheduled at [facility] [email or web address].
== END 2021-07-15 13:20 | disposition home health service (06) | DRG 539 ==
LOC: ER 21:09 → ERHOLD 06-20 21:10 → MEDS 06-20 21:10 → ORSCIP 06-23 20:42 → MEDS 06-23 20:42 → ORSCIP 06-25 16:00 → MEDS 07-10 15:42
PROVIDERS: Emergency Medicine; Family Medicine; Internal Medicine Hematology & Oncology; Internal Medicine Nephrology; Pharmacist; Physician Assistant; ADMIT Internal Medicine
DX: M46.24 Osteomyelitis of vertebra, thoracic region (principal); N18.6 End stage renal disease; I12.0 Hypertensive chronic kidney disease with stage 5 chronic kidney disease or end stage renal disease; E87.1 Hypo-osmolality and hyponatremia; Z20.822 Contact with and (suspected) exposure to COVID-19; M46.44 Discitis, unspecified, thoracic region; E11.40 Type 2 diabetes mellitus with diabetic neuropathy, unspecified; E83.39 Other disorders of phosphorus metabolism; E78.5 Hyperlipidemia, unspecified; F32.9 Major depressive disorder, single episode, unspecified; K22.70 Barrett's esophagus without dysplasia; D63.1 Anemia in chronic kidney disease; I25.10 Atherosclerotic heart disease of native coronary artery without angina pectoris; E11.22 Type 2 diabetes mellitus with diabetic chronic kidney disease; E87.6 Hypokalemia; E66.01 Morbid (severe) obesity due to excess calories; E88.09 Other disorders of plasma-protein metabolism, not elsewhere classified; Z99.2 Dependence on renal dialysis; I25.2 Old myocardial infarction; Z90.49 Acquired absence of other specified parts of digestive tract; Z98.890 Other specified postprocedural states; Z88.8 Allergy status to other drugs, medicaments and biological substances; Z79.899 Other long term (current) drug therapy
CPT/HCPCS: 36415; 76870; 80048; 80053; 80069; 80202; 81001; 82272; 82947; 83735; 84132; 85014; 85018; 85025; 85651; 86140; 87040; 93005; 93010; 93308; 93321; 97110; 97116; 97162; 97167; 97530; 97535; 99285-25; A9270; J0360; J0690; J0713; J1650; J1815; J2405; J2550; J3010; J3370; J3480; J7030; J7040; J7050; J7060; U0004

== ENCOUNTER 2021-07-20 15:21 | Emergency (ER) | payer OTHER ==
[~2021-07-20] VITALS: Ht 175.3 cm; Wt 109.0 kg
[~2021-07-20 15:21] MED LIST changes: +CEFAZOLIN2 GM/50 M3 IV; +CYCLOBENZAPRINE5 MG PO; +HYDR10 PO; +RIFA300 PO
[2021-07-20] MEDS ORDERED: ONDA4 PO (19:19)
[2021-07-20] MEDS ORDERED: Percocet 5-3251 EACH PO (19:19)
== END 2021-07-20 19:55 | disposition home or self-care (01) ==
LOC: ER 15:21
DX: G89.29 Other chronic pain (principal); M54.6 Pain in thoracic spine; M54.5 Low back pain; E11.40 Type 2 diabetes mellitus with diabetic neuropathy, unspecified; I25.2 Old myocardial infarction; I10 Essential (primary) hypertension; E78.5 Hyperlipidemia, unspecified; K21.9 Gastro-esophageal reflux disease without esophagitis; F17.210 Nicotine dependence, cigarettes, uncomplicated; Z88.8 Allergy status to other drugs, medicaments and biological substances; Z79.899 Other long term (current) drug therapy; Z79.4 Long term (current) use of insulin; Z79.02 Long term (current) use of antithrombotics/antiplatelets
CPT/HCPCS: 99283; A9270

== ENCOUNTER 2021-07-21 09:49 | Emergency (ER) | payer OTHER ==
[~2021-07-21] VITALS: Ht 175.3 cm; Wt 99.3 kg
[~2021-07-21 09:49] MED LIST changes: +ONDA4 PO; +Percocet 5-3251 EACH PO
== END 2021-07-21 16:10 ==
LOC: ER 09:49
DX: M54.5 Low back pain (principal); G89.29 Other chronic pain; I12.0 Hypertensive chronic kidney disease with stage 5 chronic kidney disease or end stage renal disease; E11.22 Type 2 diabetes mellitus with diabetic chronic kidney disease; N18.6 End stage renal disease; Z88.1 Allergy status to other antibiotic agents; Z88.8 Allergy status to other drugs, medicaments and biological substances; Z79.899 Other long term (current) drug therapy; Z79.4 Long term (current) use of insulin; I25.2 Old myocardial infarction; E11.40 Type 2 diabetes mellitus with diabetic neuropathy, unspecified; E78.5 Hyperlipidemia, unspecified; K21.9 Gastro-esophageal reflux disease without esophagitis; F32.9 Major depressive disorder, single episode, unspecified; Z99.2 Dependence on renal dialysis
CPT/HCPCS: 99284-25; A9270

== ENCOUNTER → 2021-10-23 | Outpatient (CLI) | payer OTHER ==
[2021-10-23 12:47] LABS: Creatinine, Blood 3.61 mg/dL (0.60-1.20)
== END | disposition home or self-care (01) ==
LOC: LAB RH 10:54 → EDSTATUS 14:15
PROVIDERS: Internal Medicine
DX: N18.6 End stage renal disease (principal)
CPT/HCPCS: 82565

== ENCOUNTER 2021-12-05 08:59 | Emergency (ER) | payer MEDICARE, OTHER ==
[~2021-12-05] VITALS: Ht 175.3 cm; Wt 104.3 kg
[2021-12-05 11:55] LABS: Calcium, Ionized (POC) 1.06 mmol/L (1.10-1.46); Chloride (POC) 90 mmol/L (98-108); Creatinine (POC) 8.3 mg/dL (0.8-1.3); Glucose (ISTAT POC) 186 mg/dL (70-99); Hemoglobin (POC) 12.6 g/dL (13.5-17.5); Potassium (POC) 3.4 mmol/L (3.5-5.5); Sodium (POC) 137 mmol/L (135-148); Total CO2 (POC) 33 mmol/L (21-32)
== END 2021-12-05 12:47 | disposition home or self-care (01) ==
LOC: ER 08:59
PROVIDERS: Emergency Medicine
DX: U07.1 COVID-19 (principal); I25.2 Old myocardial infarction; E11.40 Type 2 diabetes mellitus with diabetic neuropathy, unspecified; E78.5 Hyperlipidemia, unspecified; K21.9 Gastro-esophageal reflux disease without esophagitis; I10 Essential (primary) hypertension; Z79.899 Other long term (current) drug therapy; Z79.4 Long term (current) use of insulin; Z88.6 Allergy status to analgesic agent; Z99.2 Dependence on renal dialysis; Z88.1 Allergy status to other antibiotic agents
CPT/HCPCS: 71045; 80047; 85014; 99284-25; A9270

== ENCOUNTER 2021-12-06 09:00 | Emergency (ER) | payer MEDICARE, OTHER ==
[~2021-12-06] VITALS: Ht 175.3 cm; Wt 98.0 kg
[2021-12-06 10:01] LABS: BASOPHILS ABSOLUTE AUTO 0.01 K/mm3 (0.00-0.23); BASOPHILS PERCENT AUTO 0 % (0-2); EOSINOPHILS ABSOLUTE AUTO 0.02 K/mm3 (0.00-0.68); EOSINOPHILS PERCENT AUTO 0 % (0-6); Hematocrit 38.3 % (37.0-53.0); Hemoglobin 12.4 g/dL (13.5-17.5); IMMATURE GRAN ABSOLUTE AUTO 0.06 K/mm3 (0.00-0.10); IMMATURE GRAN PERCENT AUTO 1 % (0-1); LYMPHOCYTES ABSOLUTE AUTO 0.88 K/mm3 (0.84-5.20); LYMPHOCYTES PERCENT AUTO 10 % (21-46); MONOCYTES ABSOLUTE AUTO 0.58 K/mm3 (0.16-1.47); MONOCYTES PERCENT AUTO 7 % (4-13); Mean Corpuscular HGB 28.2 pg (26.0-34.0); Mean Corpuscular HGB Conc 32.4 g/dL (31.5-36.5); Mean Corpuscular Volume 87 fL (80-100); Mean Platelet Volume 8.8 fL (9.1-12.4); NEUTROPHILS ABSOLUTE AUTO 6.95 K/mm3 (1.96-9.15); NEUTROPHILS PERCENT AUTO 82 % (41-73); Platelet Count 206 K/mm3 (150-400); RDW Coefficient Variation 13.9 % (11.7-14.2); RDW Standard Deviation 44.5 fL (35.1-46.3)
[2021-12-06 10:11] LABS: Albumin, Blood 2.8 g/dL (3.4-5.0); Albumin/Globulin Ratio 0.6 (0.8-1.8); Bilirubin, Total 0.5 mg/dL (0.1-1.0); Bun/Creatinine Ratio 13.5 (12.0-20.0); Creatinine, Blood 8.77 mg/dL (0.60-1.20); Potassium, Blood 3.3 mmol/L (3.5-5.5); Total Protein, Blood 7.8 g/dL (6.4-8.2)
== END 2021-12-06 13:31 | disposition home or self-care (01) ==
LOC: ER 09:00
PROVIDERS: Emergency Medicine
DX: U07.1 COVID-19 (principal); R53.81 Other malaise; E83.39 Other disorders of phosphorus metabolism; E83.41 Hypermagnesemia; Z88.8 Allergy status to other drugs, medicaments and biological substances; Z79.899 Other long term (current) drug therapy; Z79.4 Long term (current) use of insulin; E11.9 Type 2 diabetes mellitus without complications; I25.2 Old myocardial infarction; E11.40 Type 2 diabetes mellitus with diabetic neuropathy, unspecified; I10 Essential (primary) hypertension; E78.5 Hyperlipidemia, unspecified; K21.9 Gastro-esophageal reflux disease without esophagitis
CPT/HCPCS: 36415; 80053; 83735; 84100; 84484; 85025; 99284; J7030

== ENCOUNTER → 2021-12-08 | Outpatient (CLI) | payer MEDICARE, OTHER ==
[2021-12-08 17:56] LABS: Hematocrit 38.8 % (37.0-53.0); Hemoglobin 12.4 g/dL (13.5-17.5); Mean Corpuscular HGB 27.7 pg (26.0-34.0); Mean Corpuscular Volume 87 fL (80-100); Platelet Count 279 K/mm3 (150-400); RDW Coefficient Variation 13.8 % (11.7-14.2); RDW Standard Deviation 44.8 fL (35.1-46.3); Red Blood Cell Count 4.47 M/mm3 (4.30-5.90); White Blood Cell Count 10.35 K/mm3 (4.00-11.30)
[2021-12-08 18:50] LABS: Bun/Creatinine Ratio 13.1 (12.0-20.0); Calcium, Blood 9.4 mg/dL (8.5-10.1); Creatinine, Blood 5.28 mg/dL (0.60-1.20); Potassium, Blood 3.5 mmol/L (3.5-5.5)
== END ==
LOC: EDSTATUS 11:10 → LAB RH 16:39
PROVIDERS: Internal Medicine
DX: U07.1 COVID-19 (principal)
CPT/HCPCS: 80048; 85027

== ENCOUNTER 2021-12-29 01:16 | Inpatient (IN) | payer MEDICARE, OTHER ==
[~2021-12-29] VITALS: Ht 175.3 cm; Wt 89.5 kg
[2021-12-29 02:45] LABS: Mean Corpuscular HGB 27.2 pg (26.0-34.0); Mean Corpuscular HGB Conc 31.5 g/dL (31.5-36.5); Mean Corpuscular Volume 86 fL (80-100); Mean Platelet Volume 8.3 fL (9.1-12.4); Platelet Count 270 K/mm3 (150-400); RDW Coefficient Variation 14.6 % (11.7-14.2); RDW Standard Deviation 45.6 fL (35.1-46.3); Red Blood Cell Count 1.51 M/mm3 (4.30-5.90); White Blood Cell Count 11.86 K/mm3 (4.00-11.30)
[2021-12-29 02:52] LABS: Hemoglobin 4.1 g/dL (13.5-17.5)
[2021-12-29 03:01] LABS: Magnesium, Blood 2.3 mg/dL (1.6-2.4)
[2021-12-29 03:02] LABS: Albumin/Globulin Ratio 0.4 (0.8-1.8); Bilirubin, Total 0.7 mg/dL (0.1-1.0); Bun/Creatinine Ratio 14.9 (12.0-20.0); Calcium, Blood 8.7 mg/dL (8.5-10.1); Creatinine, Blood 6.16 mg/dL (0.60-1.20); Globulin, Blood 5.5 g/dL (2.2-4.0); Phosphorus, Blood 3.8 mg/dL (2.5-4.9); Total Protein, Blood 7.5 g/dL (6.4-8.2)
[2021-12-29 03:05] LABS: BAND PERCENT MAN 14 % (0-8); BASOPHILS PERCENT MAN 0 % (0-2); EOSINOPHILS PERCENT MAN 0 % (0-6); LYMPHOCYTES ABSOLUTE MAN 0.59 K/mm3 (0.84-5.20); LYMPHOCYTES PERCENT MAN 5 % (21-46); MONOCYTES ABSOLUTE MAN 0.59 K/mm3 (0.16-1.47); MONOCYTES PERCENT MAN 5 % (4-13); NEUTROPHILS ABSOLUTE MAN 10.67 K/mm3 (1.96-9.15); SEG NEUTROPHILS PERCENT MAN 76 % (41-73); TOTAL CELLS COUNTED 100
[2021-12-29 03:58] LABS: Prothrombin Time Results 10.5 Sec (9.7-11.5)
--- NOTE | 2021-12-29 09:00 | NUR ---
ICU ADMISSION: REPORT RECEIVED FROM MANUEL ANGELES IN ED. PT ARRIVED TO ICU-09 AT APPROX 0805. AT THAT TIME, THE PT IS OPENING HIS EYES SPONTANEOUSLY, BUT UNABLE TO FOLLOW DIRECTIONS & IS NONVERBAL. PER REPORT, HIS BASELINE IS TALKATIVE & ABLE TO MAKE HIS OWN DECISIONS. LS ARE DIM T/O, PT ON 3L NC W/ O2 SATS > 95%. MONITOR SHOWS SR W/ HR 80-90s. HYPOTENSIVE W/ SBP 80-90s, MAP MAINTAINING > 60 ON AVG. 3RD UNIT PRBCs TRANSFUSING CURRENTLY. PT NPO R/T AMS. NO URINARY VOID AT THIS TIME, PT RECEIVES HD 3x/WEEK AT [facility] FOR CKD. PER REPORT, HE HAS BEEN DECLINING TO ATTEND DIALYSIS APPOINTMENTS SINCE 12/19/2021. DIALYSIS SCHEDULED FOR LATER THIS AM, PER DR MESA WHO HAS BEEN CONSULTED. PALLIATIVE CARE INVOLVED W/ PT's CASE REGARDING ISSUE OF PT POSSIBLE NOT WANTING TO PURSUE AGGRESSIVE TREATMENTS, BUT IS FULL CODE STATUS CURRENTLY. SKIN CONDITION OVERALL FRAGILE, DRY, PALE. LARGE WOUND W/ ESCHAR NOTED TO PT's COCCYX, FOUL/ STRONG SMELLING EXUDATE PRESENT. WOUNDS ALSO NOTED TO RIGHT LATERAL MALLEOULUS & LEFT HEEL. PHOTOS HAVE BEEN TAKEN OF ALL WOUNDS. ALL WOUNDS HAVE BEEN THOROUHLY CLEANSED & NEW DRESSINGS PLACED. WILL CONTINUE TO MONITOR & UPDATE NEEDED.
--- NOTE | 2021-12-29 11:22 | NUR ---
New palliative care consult: Summary of multiple visits and multiple phone calls this morning. Milagros is a 66 year old gentleman who was admitted from [facility] early this morning. He has a history of DJD, AK, DM type 2, diabetic neuropathy, ESRD on HD, HTN, hyperlipidemia, depression, GERD, Carmichael's esophagus. Pt has been residing at [facility] since 06/2021. He was brought in for AMS, worsening wounds and anemia. He is currently in the ICU receiving blood and is awaiting dialysis. Received a call from nursing with concerns for a plan of care and a decisionmaker for pt. Spoke with Candice, pt's nurse at [facility] and received information. Candice reports Milagros has been at [facility] almost 6 months. He on occasion vishnu refuse to have a dialysis treatments. Candice states when he refuses HD she will explain to him that if he would like to continue to live that he needs these treatments, without HD he will . Candice reports that he typically will agree to having HD after their converstations. Candice reports that Milagros had HD on Wednesday and Wednesday last week, she is unsure about Wednesday as she was off on that day. Candice states that he has always had a poor appetite, however since he had covid 3-4 weeks ago that his health has declined rapidly. She reports his wound to his coccyx area quickly became quite large and he eats very little. He has a POLST on file from 07/21/21 full code, full treatment at . Requested that staff fax a copy to hospital. Spoke with Milagros briefly at the bedside. He half way opens his eyes when spoken to. He is receiving blood and is quite fatigued at this time. He is unable to answer questions other then to nod his head yes to my question it this program writer could contact Araceli and Abi. He attempts to mouth words, but this program writer is unable to understand him. Phone call to Araceli pt's friend who is listed as NOK. Araceli reports that Milagros lives at and has not been doing well recently. She states that she and Milagros have had conversations about EOL and that 3-4 months ago he told her that he did not want to be resusitated. She states "He sort of gave up on life." She reports that quality of life is important to him. She reports that he has made his own decisions in the past and that since his covid he has become more confused. Araceli reports Abi is Milagros's first cousin and only family. Araceli gave this program writer Abi's number. Spoke with Abi who lives in [place]. She and Milagros are first cousins, their mothers were sisters. She reports that she has not had any end of life discussions with Milagros. She reports that he never wants to talk about it with her. Abi states that she will come visit Milagros this afternoon after HD. She states that if he is unable to make decisions for himself that she would agree to make decisions for him. Abi stated that she will call Araceli as Araceli and Milagros are close and will have a conversation with her. Abi is aware that Milagros's current POC is following his POLST on file for full code, full treatment at this time. Abi will contact this program writer when she visits this afternoon to further discuss POC going forward. Received a copy of pt's POLST from and placed it on pt's chart. Bedside nursing updated. Will plan to meet with Abi this afternoon when she visits Milagros.
[2021-12-29 12:17] LABS: Magnesium, Blood 2.2 mg/dL (1.6-2.4); Potassium, Blood 3.3 mmol/L (3.5-5.5)
[2021-12-29 12:50] LABS: Hematocrit 37.7 % (37.0-53.0); Hemoglobin 12.2 g/dL (13.5-17.5)
--- NOTE | 2021-12-29 14:30 | NUR ---
Called to pt's room per nursing. Pt's cousin and friend are at the bedside. Dr. Wheeler and Dr. Lundberg have done their consultations. Nash, HD RN in room. Pt's HD access is clotted off and pt will need new access to continue HD treatments. Pug is now awake. He is alert and oriented and talking with his visitors and interacting with Dr. Lundberg. Pug verbalizes that he wants to live. He wants to go forward with surgery. He does not want to live on long filler cigar roller machine support, however he is accepting of short term life support. Pug verbalizes that if he is unable to make medical decisions for himself that he wants his cousin, Abi, to make decisions on his behalf. At this time he wishes to remain a full code with full treatments including HD. He wants to limit his time on life support to a max of 14 days if life support would be required. Abi is present during the conversation and agrees with Pugs' wishes to move forward with HD catheter placement and surgery for his wounds. Explained the long recovery that is likely in his future and also explained that his wounds may not heal despite treatment. Discussed options for pain control as pain in his bottom is one of the mcfadden reasons why he was refusing to go to dialysis at times. Discussed nutritional support for wound healing. Answered pt and Abi's questions. Plan at this time is for surgery and HD. Pt is at high risk for delayed/non healing wound. Pug and Abi state they understand and would like to proceed. Current copy of POLST form (full code, full treatment) on pt's chart. PC to continue to follow. Nursing updated.
--- NOTE | 2021-12-29 14:45 | NUR ---
PT CURRENTLY IN ICU WITH PENDING SURGERY THIS AFTERNOON TO DEBRIDE COCCYX WOUND. ATTEMPT MADE TO ACCESS RUSTAM AVF FOR HEMODIALYSIS TX BEFORE SURGERY WAS UNSUCCESSFUL WITH SMALL AMOUNT DARK BLOOD OBSERVED IN FISTULA NEEDLE ACCESS LINE. NO BRUIT NOTED IN SPITE OF PALPABLE THRILL. FIREARMS SALES ASSOCIATE WILL CONSULT CHIEF OF PARTY REGARDING IJ CATHETER PLACEMENT TO FACILITATE DIALYSIS IN AM. DR MESA CONTACTED AND APRAISED OF THESE ISSUES
--- NOTE | 2021-12-29 16:00 | NUR ---
PATIENT TO OPERATING ROOM: PT TAKEN OUT OF ICU- TO OR BY DAY SURGERY STAFF AT APPROX 1530.
[2021-12-29 18:08] LABS: Hematocrit 31.8 % (37.0-53.0); Hemoglobin 10.5 g/dL (13.5-17.5)
[2021-12-29 18:20] LABS: Albumin, Blood 1.7 g/dL (3.4-5.0); Anion Gap 11 mmol/L (6-16); Blood Urea Nitrogen 91 mg/dL (8-24); Bun/Creatinine Ratio 15.2 (12.0-20.0); CO2, Blood 27 mmol/L (21-32); Calcium, Blood 7.9 mg/dL (8.5-10.1); Chloride, Blood 96 mmol/L (98-108); Creatinine, Blood 5.99 mg/dL (0.60-1.20); Glomerular Filtration Rate 10 (60-); Glucose, Blood 131 mg/dL (70-99); Phosphorus, Blood 4.5 mg/dL (2.5-4.9); Potassium, Blood 3.4 mmol/L (3.5-5.5); Sodium, Blood 134 mmol/L (136-145)
--- NOTE | 2021-12-29 18:31 | NUR ---
RETURN FROM OPERATING ROOM / SHIFT SUMMARY: PT ARRIVED BACK TO ROOM ICU-09 AT APPROX 1720. ON ARRIVAL, HE IS AWAKE & ANSWERING QUESTIONS APPROPRIATELY. A&O TO ALL, DENIES PAIN CURRENTLY. DR HENSON STS GIVING 25 MCG FENTANYL & 1 MG VERSED INTRA-OPERATIVELY. HE ALSO RECEIVED APPROX 700 ML IVF & HAD 100 ML EBL. WET-TO-DRY DRESSING IN PLACE TO COCCYX WOUND, CDI. HE IS ON 10 L NRB ON ARRIVAL W/ O2 SATS 100%, TRANSITIONED TO 3L NC W/ O2 SATS > 95%. TRIALYSIS CATHETER PLACED TO RIGHT GROIN INTRA-OPERATIVELY. DR MESA HAS CLARIFIED THAT HE WOULD LIKE THE PT DIALYZED TONIGHT. JORGE Bender, PATIENT FINANCIAL SERVICES MANAGER, HAS BEEN CALLED IN TO COMPLETE THIS. THE PT REMAINS A&O TO ALL, COOPERATIVE W/ CARE, DENIES PAIN. LS ARE DIM T/O, PT ON 3L NC W/ O2 SATS > 95%. MONITOR SHOWS SR W/ HR 90s, SBP 90s W/ LEVOPHED ON STANDBY SINCE APPROX 1420. PT NPO, TOLERATING MOIST MOUTH SWABS WELL PRN. NO URINARY VOID THIS SHIFT. SKIN CONDITION OVERALL POOR, SEE WOUND DOCUMENTATION. WET-TO-DRY DRESSING ON COCCYX REMAINS CDI. FOAM DRESSINGS IN PLACE TO BILAT HEELS. RIGHT UPPER ARM SLIGHTLY SWOLLEN THIS AFTERNOON PRIOR TO SURGERY, PIVs REMOVED R/T THIS ISSUE, ALTHOUGH THEY CONTINUE TO FLUSH EASILY DURING THIS TIME. AFTER RETURNING FROM SURGERY, THE RIGHT LOWER ARM IS NOTABLY MORE SWOLLEN. THE ENTIRE ARM IS WARM TO TOUCH, NO REDNESS OR HEAT NOTED, OVERALL SOFT TO PALPATION. DR MUELLER HAS EVALUATED THIS CHANGE & ORDERS PLACED FOR VENOUS ULTRASOUND OF THE RIGHT ARM. [employer] TECH AT BEDSIDE. PATIENT FINANCIAL SERVICES MANAGER JOHN AT BEDSIDE. WILL CONTINUE TO MONITOR & REPORT OFF TO ONCOMING RN.
--- NOTE | 2021-12-29 19:30 | NUR ---
ASSUMED CARE PATIENT LYING IN BED WITH EYES CLOSED. US TECH AND DIALYSIS NURSE AT BEDSIDE. LEVOPHED ON SB AND DISCONNECTED FROM PATIENT W/ MAPS GREATER THAN 65. NS @ 100ML/HR AND NS TKO INF. 2LPM VIA NC IN PLACE WITH SPO2 @ 100%. REPORT COMPLETED WITH MANUEL BILL.
--- NOTE | 2021-12-29 22:29 | NUR ---
HEMODIALYSIS TREATMENT COMPLETED ORDERED VIA R FEMORAL CVC PLACED BY DR BRADLEY WHILE PATIENT WAS IN OR FOR SURGICAL DEBRIDEMENT OF COCCYX WOUND.
[2021-12-30 03:35] LABS: BASOPHILS ABSOLUTE AUTO 0.03 K/mm3 (0.00-0.23); BASOPHILS PERCENT AUTO 0 % (0-2); Hematocrit 32.9 % (37.0-53.0); Hemoglobin 10.5 g/dL (13.5-17.5); LYMPHOCYTES PERCENT AUTO 7 % (21-46); MONOCYTES ABSOLUTE AUTO 1.06 K/mm3 (0.16-1.47); MONOCYTES PERCENT AUTO 9 % (4-13); Mean Corpuscular HGB 27.3 pg (26.0-34.0); Mean Corpuscular HGB Conc 31.9 g/dL (31.5-36.5); Mean Corpuscular Volume 86 fL (80-100); Mean Platelet Volume 8.3 fL (9.1-12.4); Platelet Count 149 K/mm3 (150-400); RDW Coefficient Variation 14.7 % (11.7-14.2); RDW Standard Deviation 46.3 fL (35.1-46.3); Red Blood Cell Count 3.85 M/mm3 (4.30-5.90); White Blood Cell Count 11.33 K/mm3 (4.00-11.30)
[2021-12-30 03:53] LABS: Albumin, Blood 1.7 g/dL (3.4-5.0); Albumin/Globulin Ratio 0.3 (0.8-1.8); Bilirubin, Total 0.6 mg/dL (0.1-1.0); Bun/Creatinine Ratio 13.6 (12.0-20.0); Creatinine, Blood 4.33 mg/dL (0.60-1.20); Globulin, Blood 4.9 g/dL (2.2-4.0); Potassium, Blood 3.8 mmol/L (3.5-5.5); Total Protein, Blood 6.6 g/dL (6.4-8.2)
[2021-12-30 03:58] LABS: EOSINOPHILS ABSOLUTE AUTO 0.01 K/mm3 (0.00-0.68); EOSINOPHILS PERCENT AUTO 0 % (0-6); IMMATURE GRAN ABSOLUTE AUTO 0.18 K/mm3 (0.00-0.10); IMMATURE GRAN PERCENT AUTO 2 % (0-1); NEUTROPHILS ABSOLUTE AUTO 9.25 K/mm3 (1.96-9.15); NEUTROPHILS PERCENT AUTO 82 % (41-73)
--- NOTE | 2021-12-30 06:41 | NUR ---
SHIFT SUMMARY PATIENT COMPELTED HD AT BEGINNING OF SHIFT WITH TOTAL OF 1500ML OFF. PATIENT REQUIRED LEVOPHED TO BE RESTARTED DURING HD AND HAS REMAINED ON T/O SHIFT; CURRENTLY AT 2MCG/MIN. NO URINE OUTPUT DURING SHIFT. PATIENT REQUIRED ONE DOSE OF FENATNYL 25MCG IV FOR PAIN OF 6/10 THAT INCREASED TO 8/10 WITH REPOSITIONING. CALL MADE TO DR. NAIR REGARDING INCREASED PAIN, BUT D/T PATIENT'S SLEEPINESS NO ORDERS GIVEN-PATIENT CONTINUED TO SLEEP T/O SHIFT. UNABLE TO COMPLETE BEDSIDE SWALLOW EVAL D/T SOMNOLENCE. AT 0400 REASSESSMENT PATIENT IS DIFFICULT TO AROUSE AND HAS BECOME PROGRESSIVELY MORE CONFUSED T/O SHIFT. STILL ON 2L NC WITH SPO2 100%. NO OTHER MAJOR CHANGES DURING SHIFT.
--- NOTE | 2021-12-30 13:37 | NUR ---
12/30/21 1337 Kiley Thakur VERIFICATIONS: EDIT CHART.
[2021-12-30 14:06] LABS: Vancomycin, Random 14.8 ug/mL
[2021-12-30 16:55] LABS: Influenza A, PCR NEGATIVE (NEGATIVE); Influenza B, PCR NEGATIVE (NEGATIVE); Resp Syncytial Virus, PCR NEGATIVE (NEGATIVE)
[2021-12-30 17:12] LABS: SARS-Cov-2 (COVID-19) PCR, MMC POSITIVE (NEGATIVE)
--- NOTE | 2021-12-30 18:30 | NUR ---
END OF SHIFT NOTE: "MAYA" HAS BEEN ABLE TO HAVE A NURSE SWALLOW EVAL TODAY. HE SWALLOWED WATER WELL BUT MORE DIFFICULT TO MANUVER SANTOSH HE SAID. HE WAS ONLY WANTING WATER ALL DAY SAYING HE WAS THIRSTY AND DRY. HE ALSO HAD A VISITOR TODAY WHICH HE PERKED UP FOR TO TALK WITH HIM. PATIENT SARAH HAS BEEN GOING ALL DAY TO HIS TRIALASIS HD CATH. AT 3 MCG HOWEVER THIS EVENING HE IS AT 2 MCG/CURRENTLY. HE HAD A COVID TEST DONE TODAY FOR A PROCEDURE TO MORE WITH RE AND IT CAME BACK POSITIVE. HE IS NOW IN SPECIAL DROPLET PRECAUTIONS. DR FISCHER WAS INFORMED OF THE RESULTS WAS DR STEELE ANSWERING SERVICE. DR BRADLEY WAS IN THIS AM AND DID A WOUND DRESSING CHANGE WET TO DRY WITH A FULL KURLEX AND ABD ON TOP. NO DIRECT WOUND CARE ORDERS AT THIS TIME. DR BRADLEY HAS BEEN WANTING TO SEE THE FIRST FEW DRESSING CHANGES. MAYA WAS STARTED ON VANCOMYACIN TODAY ALONG WITH HIS CURRENT ANTIBIOTICS. WILL CONTINUE CARE NEEDED AND DIRECTED AND GIVE REPORT TO ONCOMING SHIFT TO RESUME CARE.
[2021-12-31 04:25] LABS: Hematocrit 26.2 % (37.0-53.0); Hemoglobin 8.7 g/dL (13.5-17.5); Mean Corpuscular HGB 28.3 pg (26.0-34.0); Mean Corpuscular HGB Conc 33.2 g/dL (31.5-36.5); Mean Corpuscular Volume 85 fL (80-100); Mean Platelet Volume 8.5 fL (9.1-12.4); Platelet Count 136 K/mm3 (150-400); RDW Standard Deviation 46.8 fL (35.1-46.3); Red Blood Cell Count 3.07 M/mm3 (4.30-5.90); White Blood Cell Count 8.78 K/mm3 (4.00-11.30)
[2021-12-31 04:30] LABS: Albumin, Blood 1.5 g/dL (3.4-5.0); Anion Gap 10 mmol/L (6-16); Blood Urea Nitrogen 70 mg/dL (8-24); Bun/Creatinine Ratio 14.6 (12.0-20.0); CO2, Blood 28 mmol/L (21-32); Calcium, Blood 7.8 mg/dL (8.5-10.1); Chloride, Blood 100 mmol/L (98-108); Creatinine, Blood 4.78 mg/dL (0.60-1.20); Glomerular Filtration Rate 12 (60-); Glucose, Blood 120 mg/dL (70-99); Phosphorus, Blood 3.8 mg/dL (2.5-4.9); Potassium, Blood 3.9 mmol/L (3.5-5.5); Sodium, Blood 138 mmol/L (136-145)
[2021-12-31 05:38] LABS: BAND PERCENT MAN 3 % (0-8); BASOPHILS PERCENT MAN 0 % (0-2); EOSINOPHILS ABSOLUTE MAN 0.08 K/mm3 (0.00-0.68); EOSINOPHILS PERCENT MAN 1 % (0-6); LYMPHOCYTES ABSOLUTE MAN 1.05 K/mm3 (0.84-5.20); LYMPHOCYTES PERCENT MAN 12 % (21-46); MONOCYTES ABSOLUTE MAN 0.08 K/mm3 (0.16-1.47); MONOCYTES PERCENT MAN 1 % (4-13); MYELOCYTE ABSOLUTE MAN 0.08 K/mm3 (0.00-0.00); MYELOCYTE PERCENT MAN 1 % (0-0); NEUTROPHILS ABSOLUTE MAN 7.46 K/mm3 (1.96-9.15); SEG NEUTROPHILS PERCENT MAN 82 % (41-73); TOTAL CELLS COUNTED 100
--- NOTE | 2021-12-31 06:06 | NUR ---
SHIFT SUMMARY PATIENT LEVOPHED TURNED OFF AT 5 AND REMAINED OFF T/O SHIFT. PATIENT WAS ABLE TO TAKE PO PAIN MEDICATIONSIN APPLESAUCE AND AMMON WITH FREQUENT BREAKS. ONE BM DURING SHIFT THAT WAS LIQUID DIARRHEA; RECTAL TUBE PLACED AND WOUND DRESSING TO COCCYX REPLACED D/T CONTAMINATION WITH STOOL. PAIN HAS INCREASED DURING SHIFT SINCE WOUND CARE; STILL CONTROLLED WITH ORDERED MEDICATIONS BUT INCREASING IN INTENSITY. PATIENT BECAME INCREASINGLY CONFUSED TOWARDS END OF SHIFT, BUT IS STILL FOLLOWING COMMANDS AND CAN USE EASY TOUCH CALL LIGHT APPROPIATELY. REMAINED ON ROOM ARE T/O SHIFT EXCEPT FOR SHORT TIME AFTER DRESSING CHANGE WHEN HE BECAME HYPOXIC-RESOLVED AFTER SHORT TIME OF 2L NC. WATER PROVIDED INTERMITTENTLY WITHOUT DIFFICULTY. NO URINE OUTPUT DURING SHIFT. PLAN FOR DIALYSIS TODAY AND MRI IF LEVOPHED IS ABLE TO REMAIN OFF. NO OTHER MAJOR CHANGES DURING SHIFT.
--- NOTE | 2021-12-31 08:00 | NUR ---
Received report from Tasneem JACKSON. Patient is awake in bed and is able to communicate his needs but very slow. He is alert to self, year. He is on RA and sats 100%. Dialysis called and stated to hold pipercillan and give Cleocin. He has fistula to RUSTAM that has flow problems and Dr Godfery has been consulted He has 20ga IV in SAMIR and 20ga IV in RFA. The RFA is infusing NS TKO x2 and Levophed remains on standby. He has right groin trialysis cath dressing intact and site WNL's. he has large open wound to thigh and buttocks area, See Pics in chart for details. Wound was redessed and packed at end of retail shift leader. Patient has rectal tube in place.
--- NOTE | 2021-12-31 09:04 | NUR ---
Dr Joiner and Dr Hernandez are in room and Dr Soto consented for Fistula Gram to open patients existing fistula for flow. Called dialysis and they will wait until procedure is done to dialyze contrast off. Dr Joiner added Pro Amatine, medicated for pain. made NPO until procedure over.
--- NOTE | 2021-12-31 10:19 | NUR ---
Patient taken to [facility] at 0930 for fistula Gram
[2021-12-31 11:54] LABS: Hematocrit 25.9 % (37.0-53.0); Hemoglobin 8.2 g/dL (13.5-17.5)
--- NOTE | 2021-12-31 12:00 | NUR ---
Patient back from landscaping and groundskeeping laborer and they were able to open fistula up. Cleaned patient up as with movement was leaking around rectal tube and linen change. Changed buttocks dressing per verbal from Dr Wheeler. Dr Guido to verify consult and will await for him to return call. VSS. Dialysis here awaiting to start. Patient remains oriented to self and year and is able to communicate his needs.
--- NOTE | 2021-12-31 14:21 | NUR ---
Patient continues with dialysis. He has been snacking on his lunch slowly. VSS. RFA 20ga IV infusing NS TKO. Medicating for pain per MAR..
[2021-12-31 16:08] LABS: Vancomycin, Random 12.8 ug/mL
--- NOTE | 2021-12-31 16:53 | NUR ---
[id number] finished Dialysis and had 1.5L off. He tolerated very well and systolics remain >100. He has beem transferred to PCU status and have give report to PCU CN. Family was by and stayed for about an hour. He will be transferred in ICU bed and has no belongings that were transferred from [facility].
--- NOTE | 2021-12-31 17:10 | NUR ---
[place] of Care: Pt received from ICU. No change noted from AM assessment. C/o coccyx/buttocks pain, Fentanyl x1 with adequate control of pain per pt. Pt in no apparent distress. Will continue to monitor until transfer of care.
[2021-12-31 18:07] LABS: Hematocrit 26.4 % (37.0-53.0); Hemoglobin 8.5 g/dL (13.5-17.5)
[2022-01-01 04:40] LABS: BASOPHILS ABSOLUTE AUTO 0.02 K/mm3 (0.00-0.23); BASOPHILS PERCENT AUTO 0 % (0-2); EOSINOPHILS ABSOLUTE AUTO 0.11 K/mm3 (0.00-0.68); EOSINOPHILS PERCENT AUTO 1 % (0-6); Hematocrit 25.7 % (37.0-53.0); IMMATURE GRAN ABSOLUTE AUTO 0.11 K/mm3 (0.00-0.10); IMMATURE GRAN PERCENT AUTO 1 % (0-1); LYMPHOCYTES ABSOLUTE AUTO 0.97 K/mm3 (0.84-5.20); LYMPHOCYTES PERCENT AUTO 11 % (21-46); MONOCYTES ABSOLUTE AUTO 0.49 K/mm3 (0.16-1.47); MONOCYTES PERCENT AUTO 6 % (4-13); Mean Corpuscular HGB Conc 31.1 g/dL (31.5-36.5); Mean Corpuscular Volume 87 fL (80-100); Mean Platelet Volume 8.3 fL (9.1-12.4); NEUTROPHILS ABSOLUTE AUTO 6.93 K/mm3 (1.96-9.15); NEUTROPHILS PERCENT AUTO 80 % (41-73); Platelet Count 122 K/mm3 (150-400); RDW Coefficient Variation 15.3 % (11.7-14.2); Red Blood Cell Count 2.96 M/mm3 (4.30-5.90); White Blood Cell Count 8.63 K/mm3 (4.00-11.30)
[2022-01-01 04:58] LABS: Albumin, Blood 1.5 g/dL (3.4-5.0); Anion Gap 7 mmol/L (6-16); Blood Urea Nitrogen 51 mg/dL (8-24); Bun/Creatinine Ratio 14.6 (12.0-20.0); CO2, Blood 30 mmol/L (21-32); Calcium, Blood 7.6 mg/dL (8.5-10.1); Chloride, Blood 102 mmol/L (98-108); Glomerular Filtration Rate 18 (60-); Glucose, Blood 146 mg/dL (70-99); Magnesium, Blood 1.8 mg/dL (1.6-2.4); Phosphorus, Blood 2.9 mg/dL (2.5-4.9); Potassium, Blood 3.5 mmol/L (3.5-5.5); Sodium, Blood 139 mmol/L (136-145)
--- NOTE | 2022-01-01 06:43 | NUR ---
SHIFT SUMMARY PT ORIENTED TO SELF, MAKES TALKS ABOUT SURROUNDINGS LIKE HE IS SOMEWHERE ELSE. AT START OF SHIFT, STATED HE SMELLED SOMETHING BURNING AND WAS CONCERNED ABOUT HIS KITTENS IN HIS TRAILER. PT IS CALM AND COOPERATIVE T/O NIGHT AND MORNING. TALKS AND JOKES WITH STAFF. RECTAL TUBE LEAKING AT START OF SHIFT, CHANGED, COPIOUS AMOUNTS OF LOOSE BROWN STOOL EVACUATED FOLLOWING DC AND NEW PLACEMENT. DRESSINGS TO SACRUM SOILED. CHANGED BY THIS RN AND JESSICA RN. MEPILEX PLACED TO OUTSIDE FOR EXTRA PROTECTION/PADDING D/T EXTENSIVE NATURE OF WOUND. DRESSINGS CLEAN AND INTACT TO BLE. PT MILDLY HYPOTENSIVE, MAP ABOVE 65 MMHG. DENIES CP, SINUS RHYTHM 70'S-80'S T/O SHIFT. BREATHING IS EVEN AND UNLABORED. SATS 98%-100% ON RA. PT REPORTED FEELING LIKE HE HAD TO URINATE, ATTEMPTED TO USE URINAL DESPITE VERBALIZING UNDERSTANDING THAT HE HASN'T PRODUCED URINE FOR AWHILE SINCE BEING ON DIALYSIS. IV IN R FA AND TRIALYSIS CATH SALINE LOCKED. THRILL PRESENT IN FISTULA TO LUE.
--- NOTE | 2022-01-01 12:41 | NUR ---
Surgeon changed the packing in the wound around noon. Wet to dry gauze with foam on the outside. The rectal tube was taken out per Surgeon request due to leakage around tub. Notified pt to let us know if he feels like he needs to poop or has pooped and will monitor closely to keep dressing free of stool. Surgeon said to change dressing daily.
[2022-01-01 12:56] LABS: Vancomycin, Random 26.7 ug/mL
--- NOTE | 2022-01-01 15:58 | NUR ---
Shift note: Pt is only oriented to self. Pt is alert when in room and talking to him, but sleeping between cares. VSS on RA. CBGs 120-130s, sliding scale followed per orders. Meds have been crushed in applesauce per order. 1:1 feeder. Pt ate breakfast, but was not hungry for lunch. Pt was nauseaous after breakfast, but did not throw up and he also refused prn nausea meds. Pt does not produce urine at baseline. IV abx continued per orders. Tele: SR 80s. No Dialysis today per Dr. Whittaker. Fistula on left arm has strong thrill and bruit. Right groin dialysis site looks clean dry and intact and the port flushed. New PIV and powerglide was placed today. No BP or labs in left arm, all IVs in right side. Wound was cleaned and repacked by Surgeon today, he said the dressing should be repacked daily and replace dressing if saturated, supplies are in the room. Bilateral lower extremities have been floated due to pressure injuries on ankle and heel, foam in place on those as well. Hips have been floated and weigh shifted Q2hrs and closely monitoring if pt has had BM to avoid stool saturating wound dressing. Per surgeon, we removed the rectal tube today. The rectal tube was leaking around tube and some of the stool seemed thick and possibly was getting clogged in tube. Unable to get photo of wound today due to helping surgeon hold pt up while he did the dressing change, will get a photo tomorrow when packing is changed.
[2022-01-02 04:17] LABS: BASOPHILS ABSOLUTE AUTO 0.04 K/mm3 (0.00-0.23); BASOPHILS PERCENT AUTO 1 % (0-2); EOSINOPHILS ABSOLUTE AUTO 0.14 K/mm3 (0.00-0.68); EOSINOPHILS PERCENT AUTO 2 % (0-6); Hematocrit 24.3 % (37.0-53.0); Hemoglobin 7.9 g/dL (13.5-17.5); IMMATURE GRAN ABSOLUTE AUTO 0.14 K/mm3 (0.00-0.10); IMMATURE GRAN PERCENT AUTO 2 % (0-1); LYMPHOCYTES ABSOLUTE AUTO 1.31 K/mm3 (0.84-5.20); LYMPHOCYTES PERCENT AUTO 15 % (21-46); MONOCYTES ABSOLUTE AUTO 0.58 K/mm3 (0.16-1.47); MONOCYTES PERCENT AUTO 7 % (4-13); Mean Corpuscular HGB Conc 32.5 g/dL (31.5-36.5); Mean Corpuscular Volume 86 fL (80-100); Mean Platelet Volume 8.7 fL (9.1-12.4); NEUTROPHILS ABSOLUTE AUTO 6.64 K/mm3 (1.96-9.15); NEUTROPHILS PERCENT AUTO 75 % (41-73); Platelet Count 145 K/mm3 (150-400); RDW Coefficient Variation 15.2 % (11.7-14.2); RDW Standard Deviation 48.1 fL (35.1-46.3); Red Blood Cell Count 2.82 M/mm3 (4.30-5.90); White Blood Cell Count 8.85 K/mm3 (4.00-11.30)
[2022-01-02 04:34] LABS: Albumin, Blood 1.5 g/dL (3.4-5.0); Anion Gap 7 mmol/L (6-16); Blood Urea Nitrogen 62 mg/dL (8-24); Bun/Creatinine Ratio 15.7 (12.0-20.0); CO2, Blood 30 mmol/L (21-32); Calcium, Blood 7.8 mg/dL (8.5-10.1); Chloride, Blood 102 mmol/L (98-108); Creatinine, Blood 3.95 mg/dL (0.60-1.20); Glomerular Filtration Rate 15 (60-); Glucose, Blood 111 mg/dL (70-99); Phosphorus, Blood 3.1 mg/dL (2.5-4.9); Potassium, Blood 3.6 mmol/L (3.5-5.5); Sodium, Blood 139 mmol/L (136-145)
--- NOTE | 2022-01-02 06:24 | NUR ---
SHIFT SUMMARY ASSUMED CARE OF PT AT 1900. PT IS ALERT BUT LETHARGIC. PT WILL ONLY ANSWER ONE QUESTION AND WILL STARE OFF WHEN ASKED ANOTHER. FOR EXAMPLE, PT WAS ABLE TO STATES MONTH AND DAY OF BUT NOT THE YEAR AND WHEN ASKED, PT REMAINED SILENT, STARING AT THE WALL. HEART SOUNDS REGULAR. LUNG SOUNDS DIMINISHED AT THE BASES. PT HAD LOOSE SMEARS OF STOOL T/O THE NIGHT;INCONTINENT. PT DID NOT VOID. DRESSING ON SACRAL WOUND C/D/I.
--- NOTE | 2022-01-02 10:21 | NUR ---
Updated Dr. Lundberg that fistula in left upper arm was not able to be accessed for dialyis today, temporary right groin dialysis port used. Pt will be in dialysis until [address] Lundberg has some new medication he would like applied to wound, he request that we wait to do dressing change until after dialyisis and when he gets to floor to give orders for new dressing. Will take new pictures when doing dressing change.
--- NOTE | 2022-01-02 12:13 | NUR ---
DIALYSIS TRIED TO ACCESS PT FISTULA WITH 16 GA FISTULA NEEDLES. UNSUCCESSFUL. GOT SOME VERY DARK BLOOD IN THE NEEDLE. USED TEMP CATH FOR TX.
[2022-01-02 12:39] LABS: Vancomycin, Random 15.4 ug/mL
--- NOTE | 2022-01-02 16:43 | NUR ---
Pt was transferred to medical floor room 339, report given to Cally JACKSON. Dr. Lundberg wanted me to pass along that pt is on the waitlist for [facility] and possibly could get a bed tomorrow. I notifed Cally JACKSON. MRI will be at 1730, verified with MRI. Pt did not request any anxiety meds prior. Updated cousin Abi that he moved to medical floor.
--- NOTE | 2022-01-02 17:27 | NUR ---
Shift Note: Assumed care from [id number], report given to Cally JACKSON on medical floor. Pt is Alert and oriented x2. Pleasant and cooperative with care. VSS on RA. Pt had dialysis today and 1L was removed. Dialysis nurse was unable to access left arm fistula, so the temporary right groin port was used. Pt has PIV in right upper arm. IV abx continued per orders. CBGs 80-90s, no sliding scale needed. Tele was d/c prior to transfer, SR 80s before d/c. Dr. Lundberg updated staff that pt is on waitlist for [facility] [place], hoping for bed tomorrow. Pt had a few BMs today. No urine output which is pt baseline with hemodialyis. VSS on RA. Minimal appetite, but pt did eat a few bites of breakfast and lunch. Skin care: Wound dressing changed with Dr. Lundberg assistance today. Honey cream was applied to the blackened areas and silver was applied to the outer areas. Xaraform was placed on the area of exposed bone. Gauze was soaked in dakins solution and packed in wound. Dr. Lundberg said he would put in a nursing wound care order with his exact direction.
--- NOTE | 2022-01-02 19:40 | NUR ---
CALL RECEIVED FROM DR ARORA RE DISCHARGE TONIGHT TO [facility]. CHARGE NURSE NOTIFIED, DR ARORA GIVEN NUMBER TO CALL FOR MD TO MD AT [facility]. PT AWAKE. CALL LIGHT IN REACH
--- NOTE | 2022-01-02 21:50 | NUR ---
AWAKE, WATCHING TV. VERBAL RESPONSE APPROPRIATE TO QUESTIONS ASKED. SKIN COOL TO TOUCH. WARM BLANKET APPLIED. TOLERATED HS MEDS. CALL LIGHT IN REACH. ASSISTED WITH BOWEL MOVEMENT/CLEAN UP. AWAITING POSSIBLE TRANSFER TO ANOTHER FACILITY.
--- NOTE | 2022-01-03 00:24 | NUR ---
NOTIFIED OF TRANSFER TO ANOTHER FACILITY. SIGNS CONSENTS.
--- NOTE | 2022-01-03 00:48 | NUR ---
CALL PLACED TO [facility], SPOKE WITH "MARISABEL LOPEZ". NURSE FOR ROOM 433. PT RECEIVED ONE TAB OF NORCO FOR COMFORT DURING THE TRANSFER.
--- NOTE | 2022-01-03 00:51 | NUR ---
DATE NIGHT SITTER SUMMARY ALERT TO QUESTIONS ASKED. HAS BEEN RESTING QUIETLY AT INTERVALS. IV ANTIBIOTICS ADMINISTERED - SEE MAR FOR DETAILS. TO BE TRANSFERRED TO [facility] FOR FOLLOW UP TREATMENT. AWAITING TRANSPORT. DX OSTEOMYELITIS OF SPINE. SACRAL DECUBITUS. SEE PICTURES IN CHART FOR DETAILS
--- NOTE | 2022-01-03 01:46 | NUR ---
DISCHARGE NOTE AMBULANCE FOR TRANSPORT HERE. AWAKE. ALERT. PLACED ON GURNEY.DENIED PAIN. DISCHARGED TO [facility] PER MD ORDERS.
== END 2022-01-03 01:48 | disposition short-term general hospital (02) | DRG 853 ==
LOC: ER 01:16 → EDBEDREQ 06:03 → PCU 06:04 → ICUW 06:04 → PCU 12-31 17:07 → MEDS 01-02 16:39
PROVIDERS: Family Medicine; Internal Medicine Critical Care Medicine; Internal Medicine Nephrology; Pharmacist; Radiology Diagnostic Radiology; Student in an Organized Health Care Education/Training Program; Surgery; ADMIT Internal Medicine
PROC: 30233N1 Transfusion of Nonautologous Red Blood Cells into Peripheral Vein, Percutaneous Approach (ICD-10-PCS; 2021-12-29)
PROC: 8E0ZXY6 Isolation (ICD-10-PCS; 2021-12-29)
PROC: 0KBP0ZZ Excision of Left Hip Muscle, Open Approach (ICD-10-PCS; 2021-12-29)
PROC: 06HY33Z Insertion of Infusion Device into Lower Vein, Percutaneous Approach (ICD-10-PCS; 2021-12-29)
PROC: 03783DZ Dilation of Left Brachial Artery with Intraluminal Device, Percutaneous Approach (ICD-10-PCS; 2021-12-29)
PROC: 03C83ZZ Extirpation of Matter from Left Brachial Artery, Percutaneous Approach (ICD-10-PCS; 2021-12-29)
PROC: B51W1ZZ Fluoroscopy of Dialysis Shunt/Fistula using Low Osmolar Contrast (ICD-10-PCS; 2021-12-29)
PROC: 3E033XZ Introduction of Vasopressor into Peripheral Vein, Percutaneous Approach (ICD-10-PCS; 2021-12-29)
PROC: 3E03329 Introduction of Other Anti-infective into Peripheral Vein, Percutaneous Approach (ICD-10-PCS; principal; 2021-12-29 15:30)
PROC: 5A1D70Z Performance of Urinary Filtration, Intermittent, Less than 6 Hours Per Day (ICD-10-PCS; 2021-12-29 15:30)
DX: A41.9 Sepsis, unspecified organism (principal); N18.6 End stage renal disease; L89.154 Pressure ulcer of sacral region, stage 4; J96.91 Respiratory failure, unspecified with hypoxia; G92.8 Other toxic encephalopathy; U07.1 COVID-19; R65.21 Severe sepsis with septic shock; I13.0 Hypertensive heart and chronic kidney disease with heart failure and stage 1 through stage 4 chronic kidney disease, or unspecified chronic kidney disease; N25.81 Secondary hyperparathyroidism of renal origin; M86.8X8 Other osteomyelitis, other site; E87.1 Hypo-osmolality and hyponatremia; E87.6 Hypokalemia; E86.1 Hypovolemia; L89.150 Pressure ulcer of sacral region, unstageable; E66.01 Morbid (severe) obesity due to excess calories; R19.7 Diarrhea, unspecified; E11.69 Type 2 diabetes mellitus with other specified complication; E86.9 Volume depletion, unspecified; R60.1 Generalized edema; I25.10 Atherosclerotic heart disease of native coronary artery without angina pectoris; E11.40 Type 2 diabetes mellitus with diabetic neuropathy, unspecified; F32.A Depression, unspecified; K21.9 Gastro-esophageal reflux disease without esophagitis; D63.1 Anemia in chronic kidney disease; J44.9 Chronic obstructive pulmonary disease, unspecified; I50.9 Heart failure, unspecified; E11.22 Type 2 diabetes mellitus with diabetic chronic kidney disease; K08.409 Partial loss of teeth, unspecified cause, unspecified class; E78.5 Hyperlipidemia, unspecified; Z99.2 Dependence on renal dialysis; Z89.021 Acquired absence of right finger(s); Z90.49 Acquired absence of other specified parts of digestive tract; Z98.890 Other specified postprocedural states; Z88.8 Allergy status to other drugs, medicaments and biological substances; Z79.4 Long term (current) use of insulin; Z79.899 Other long term (current) drug therapy; I25.2 Old myocardial infarction; Z86.14 Personal history of Methicillin resistant Staphylococcus aureus infection; Z68.25 Body mass index [BMI] 25.0-25.9, adult; Z91.15 Patient's noncompliance with renal dialysis
CPT/HCPCS: 0241U; 36415; 36430; 36905; 36907; 71045; 72193; 72195; 76937; 80053; 80069; 80202; 82947; 83605; 83735; 84100; 84132; 84145; 84484; 85014; 85018; 85025; 85610; 85651; 85730; 86140; 86850; 86900; 86901; 86920; 87040; 87070; 87075; 87205; 93005; 93010; 93971; 99152; 99153; 99285-25; A9270; C1725; C1751; C1769; C1887; C1894; J0692; J1642; J1644; J2250; J2370; J2405; J2543; J2704; J3010; J3370; J3480; J7030; J7050; J7060; P9016; Q9967